=== PATIENT | male | born 1950 | race Asian ===

== ENCOUNTER 2023-11-08 09:25 | Inpatient (IN) | payer MEDICARE, OTHER, SELFPAY ==
[2023-11-08 09:38] VITALS: BP 112/61; BMI 25.8
--- NOTE | 2023-11-08 09:55 | PTCARENOTE ---
Addendum entered by Deisi Wheeler RN 11/08/23 10:08:
97% on RA
Original Note:
Received the patient form [facility] in a stretcher. The patient is aaox3. He is orthopneic and appears to be in respiratory distress however he tells me he is not. His RR is 26 and he has scattered crackles throughout his lungs. His belly is
round and distended with a Tegaderm over a 4x4 gauze dressing that is c/d/i over his right abdomen. His Left arm and hand has +3 edema throughout. I elevated it with 2 pillows. He is AV paced on the monitor. He has no complaints of pain. He has
broken Swedish but understands and answers my questions appropriately. The language line is at his bedside. His call meyer is within reach.
[2023-11-08 11:14] VITALS: BMI 25.8
--- NOTE | 2023-11-08 11:19 | CM ---
Reviewed chart. Met with Mr. Henriquez and his son, Ramesh to review discharge plans. Son states prior to admission Mr. Henriquez resides with his spouse and son in a two story home with five steps to enter. He states he has a full flight of steps to
get to bedroom/full bathroom. He states the second bathroom is in the basement. Son states prior to admission he was amble to ambulate independent slowly with frequent rests. He states he was able to go up the stairs. He states he was
independent with ADLS. He states he has had [facility] in the past. He states he has never been to a SNF/Rehab. He states he thinks he has a prescription plan. Will need to see his current functional level to see if he will have
any skilled care needs. Medical work-up in progress. The discharge plan is SNF/Rehab. versus home with family and [facility] when medically stable.
--- NOTE | 2023-11-08 11:23 | HPS.HSE ---
Addendum entered and electronically signed by Julia Denis MD 11/08/23 11:47:
diastolic CHF hx
Original Note:
Family Physician
-
Family Physician: Estefany Jaquez
Chief Complaint
-
Left upper arm swelling--transferred from [facility] for pacemaker lead extraction
History of Present Illness
Patient is a 72-year-old male with a complex medical history which includes pacemaker placement back in roughly 2016 for sick sinus syndrome, paroxysmal atrial flutter started on Eliquis but developed subdural hematoma in 2018 and was taken off
Eliquis, subsequently had nonhemorrhagic CVA in 2019 and restarted on Eliquis as a bridge to Watchman procedure done here. He also has a history of non-Hodgkin's lymphoma and Waldenstr�m's macroglobulinemia with thrombocytopenia and splenectomy,
cirrhosis (presumed from right sided failure as there is no alcohol history here), essential hypertension, insulin requiring diabetes, congestive heart failure unknown type, gout, hyperlipidemia, iron deficiency anemia with history of GI bleeding,
benign prostatic hyperplasia who presented to [facility] 2 weeks ago with complaints of left leg and left arm swelling.
Workup at that hospital (see records for details) showed CAT scan of the chest, abdomen, pelvis without any signs of recurrent or progressive lymphoma, increased abdominal ascites requiring paracentesis for 1.7 L and eventual decision was that there
may be a stricture from the pacemaker wires which prompted transfer here for lead extraction. They were unable to use contrast for a CT venogram due to his worsening renal dysfunction.
History has been obtained through reading the records and by the family at the bedside. They state that his speech is off and slurred for 2 to 3 days now along with 2 to 3 days of lethargy. Previous to that patient lives with his son and and
is able to walk, has clear speech, and does all of his activities of daily living without assistance.
Patient has been transferred here for further workup in that regard.
Medical History
Past Medical History
Past Medical History: Reports Other
Additional Past Medical History:
Pacemaker placement for sick sinus syndrome
Subdural hematoma 2018
Nonhemorrhagic CVA 2019
History of non-Hodgkin's lymphoma and Waldenstr�m's macroglobulinemia status postchemotherapy in 2017 and splenectomy in 2018 for thrombocytopenia
Cirrhosis presumed to be right-sided heart failure in nature
Essential hypertension
Type 2 diabetes mellitus insulin requiring
Gout
Hyperlipidemia
Benign prostatic hyperplasia
Iron deficiency anemia with history of GI bleeding
Congestive heart failure unknown type
Hypothyroidism
Past Surgical History: Reports Other
Additional Past Surgical History:
Pacemaker placement
Watchman procedure
Splenectomy
Social History
Tobacco: Former Smoker (Quit over 35 years ago)
Alcohol: None
Drug: None
Living: With Family
Family History
Family History: Not pertinent
Allergies / Home Medications
Allergies reflects when Allergies were last updated in [employer].
Home Medications with original date entered in [employer]
Allergy/Medication List:
Allergies
Allergy/AdvReac Type Severity Reaction Status Date / Time
No Known Allergies Allergy Verified 07/02/19 07:08
Home Medications
atorvastatin 10 mg tablet 20 mg PO HS 07/02/19
cholecalciferol (vitamin D3) 50 mcg (2,000 unit) tablet 2,000 unit PO DAILY 07/02/19
finasteride 5 mg tablet 5 mg PO DAILY 07/02/19
metoprolol tartrate 25 mg tablet 12.5 mg PO BID 07/02/19
tamsulosin 0.4 mg capsule 0.4 mg PO HS 07/02/19
aspirin 81 mg chewable tablet 81 mg PO DAILY 07/03/19
allopurinol 300 mg tablet 300 mg PO DAILY 08/28/19
amiodarone 200 mg tablet (Pacerone) 200 mg PO DAILY 08/28/19
budesonide-formoterol HFA 80 mcg-4.5 mcg/actuation aerosol inhaler 2 puff inhalation BID 11/08/23
empagliflozin 25 mg tablet 25 mg PO DAILY 11/08/23
furosemide 20 mg tablet 20 mg PO DAILY 11/08/23
levothyroxine 50 mcg tablet 50 mcg PO DAILY 11/08/23
Review of Systems
-
History Source: Patient and Family
A 12 point ROS was completed and negative except as noted: Yes
Constitutional: Denies Fever or Chills
EENT: Reports No Symptoms and Other (swollen left face--resolved)
Respiratory: Denies Cough or Trouble Breathing
Cardiac: Denies Chest Pain or Palpitations
Abdomen/GI: Reports Nausea and Vomiting; Denies Abdominal Pain, Diarrhea or Constipated
: Reports Dysuria (occasional)
Musculoskeletal: Reports Edema
Skin: Reports No Symptoms
Neurological: Reports Dizzy (with ambulation), Weakness and Other (tremors of left arm/leg with slurred speech and lethargy 2-3 days ago)
Endocrine: Reports No Symptoms
Hematologic/Lymphatic: Reports Other (lymphoma)
Physical Exam
Vital Signs
Vital Signs
Temp Pulse Resp BP Pulse Ox
97.3 F 65 26 112/61 97
11/08/23 09:38 11/08/23 09:38 11/08/23 09:38 11/08/23 09:38 11/08/23 09:38
Physical Exam
General: Well Developed, Well Nourished and No Apparent Distress
HEENT: NormoCephalic, Anicteric and Atraumatic; No Oxygen
Respiratory: Wheezes (all lung gtz)
Cardiac: Irregular Rhythm and Murmur
GI: Soft, Non Tender, Normal Bowel Sounds and Distended
Musculoskeletal: No Clubbing, No Cyanosis and Other (left upper arm remains edematous but right arm and bilateral legs no edema)
Skin: Warm and Dry
Neuro: Awake, No Motor Deficits and Other (speech seems slurred)
Psych: Calm
Impression/Plan
-
Patient is a 72-year-old male
Left upper arm swelling--reason for transfer with concern for stricture/SVC syndrome from pacemaker leads (placed for sick sinus syndrome back in 2016)--unable to get CT venogram at [facility]--consult cardiology, vascular, nephrology--if cannot
get CT venogram, perhaps MRI if pacer compatible we will be acceptable--will defer to vascular and nephrology
Slurred speech/lethargy--2 to 3 days in duration and abnormal as per family and patient--no workup done that I can see at [facility]--consult neurology--consult PT/OT/speech--patient does have history of both subdural hematoma and nonhemorrhagic
CVA--consider head CT versus MRIs as mentioned above
History of non-Hodgkin's lymphoma with Waldenstr�m's macroglobulinemia status postsplenectomy for thrombocytopenia--completed course of chemotherapy--workup at [facility] shows no progression of lymphoma
Type 2 diabetes mellitus insulin requiring--Place sliding scale insulin, check hemoglobin K4t--sfhrrjck insulin as able
Cirrhosis--presumed due to right sided heart failure--status post 1.7 L paracentesis at [facility]--appears to be reaccumulating--consider IR for further drainage--consider ultrasound to evaluate for amount of ascites
Essential hypertension--continue medications with parameters
History of congestive heart failure unknown type--we will review holding edema records again--May need repeat ultrasound here
History of gout--noted--continue allopurinol
History of BPH--continue tamsulosin
History of iron deficiency anemia with GI bleeding--had been receiving IV iron at [facility]--consideration for GI evaluation
Hyperlipidemia--continue atorvastatin
Questionable history of chronic obstructive pulmonary disease/asthma--family states he has been in his 'inhaler' since his pneumonia in 2019--but they deny any history of lung problems
Paroxysmal atrial flutter--status post Watchman procedure
Previous history of subdural hematoma and non hemorrhagic CVA--continue PT/OT/speech--continue baby aspirin daily
DVT prophylaxis--sequential teds
CODE STATUS--full code--reviewed with family at bedside
Time for admission greater than 75 minutes
--- NOTE | 2023-11-08 11:25 | CON.CAR ---
Addendum entered and electronically signed by Garry Elizabeth MD 11/08/23 15:55:
I saw and examined the patient.
The Dining Car Waiter/Waitress's note was reviewed and I agree with the note.
Comment:
GEN: No distress, awake, alert
HEENT: supple, anicteric, mmm
LUNGS: CTA, no wheezes/rales
CV: Reg, S1/S2, 1/6 syst LSB, no murmur
ABD: soft, BS+, NT/ND
EXT: L arm edema
NEURO: Gross non-focal
SKIN: No rash
Plan:
He presents today for an evaluation regarding possible left sided venous occlusion requiring possible pacemaker extraction. I reviewed all of his records and this is a complicated patient. He was hospitalized at [facility] for 1 week with no
clear etiology for his edema. CT scan of the chest was overall unremarkable at [facility]. There was no clear DVT by venous ultrasound. He was diuresed with a paracentesis and did have clinical improvement but his creatinine increased and now
his diuretics are being held.
Creatinine currently at 2.8 with a hemoglobin of 7.9. Continue to follow labs closely. LFTs are also significantly abnormal with bilirubin of 2.3 and transaminases in the 300 range.
Will discuss with nephrology would prefer gentle diuresis and repeat imaging of his venous system. We will start with ultrasound to reevaluate for DVT. We will attempt to review the CT scan performed at [facility].
Agree with head CT to evaluate mental status.
With abnormal liver function testing would hold atorvastatin for now. Okay to continue amiodarone and follow trend of LFTs.
Addendum entered and electronically signed by Jelani Daily MD 11/08/23 15:04:
Attempted to see patient but he is off the floor for CT head imaging and LUE ultrasound imaging. By report his anasarca/facial swelling has improved despite ongoing edema in his left arm. By report he has L SCV occlusion although we do need a
definitive image of his venous system to diagnose SVC syndrome or significant SVC/RA junction stenosis from his 2017 pacing leads. His device was interrogated and noted elevated atrial threshold which was adjusted and now AP-VS with underlying sinus
bradycardia in the 30's. He has a creatinine of 2.8. He is due for a CT of the head due to speech difficulty/change in mental status for about 3 days.
-Appreciate Neurology input.
-If he has no new hemorrhagic lesions then would have to consider short term eliquis 2.5mg bid to treat venous occlusion. He did tolerate about 2 months of NOAC sophy-Watchman implant in 2019.
-Can utilize compression sleeve for left arm in addition to potential NOAC therapy for his LUE edema
-Appreciate IM/Nephrology input re approach to diuresis
-Discussed case preliminarily with Dr. Campuzano. We will follow daily and plan diagnostic testing to make diagnosis either with peripheral venogram under fluoroscopic examination or CT chest with venous phase imaging/contrast. If he has SVC syndrome
will need to consider device extraction although if occlusion is more peripheral in the left subclavian/innominate system then conservative measures would be preferred. Overall he has a myriad of serious/advanced medical issues and any intervention
would be high risk.
Original Note:
Consultation
Consultation Request
Date/Time Consultation Performed: 11/08/23
Requesting Provider: Dr. Denis
Performing Provider: Mireille Joiner PA-C for Dr. Elizabeth
Reason for Consultation: transfer for lead extraction eval
Medical History
-
Chief Complaint: LUE swelling
History of Present Illness:
Patient is a 72-year-old male followed by Dr. Barone at [facility] with past medical history of lymphoma in 2017 status post chemotherapy followed by splenectomy in 2018, sick sinus syndrome status post [employer] pacemaker, paroxysmal atrial
flutter, history of spontaneous subdural hematoma on Eliquis in 2018, history of stroke in 2019, status post watchman 2019, chronic amiodarone therapy, iron deficiency anemia, chronic diastolic congestive heart failure, history of orthostatic
hypotension, type 2 diabetes, CKD. Family reports over the last 2 to 3 months they noted worsening abdominal bloating. Approximately 2 weeks ago swelling became worse everywhere including in his face and feet. At that point his Lasix was
increased by his scientific database curator from 20 mg every other day to 20 mg daily. Family does not note any improvement with this change. He then presented to [facility] 10/28/2023 due to shortness of breath. He was treated for heart failure
with IV Lasix. He also underwent paracentesis for 1.7 L on 11/02/2023. Nephrotoxic agents including diuretics then held because of renal insufficiency. With diuresis the swelling in his face abdomen and leg improved, however edema remains in his
left upper extremity. Echocardiogram with preserved EF, mild to moderate MR, moderate to severe TR at [facility]. CT scan without obvious vena caval obstruction however there was concern for venous stricture/stenosis by vascular at [facility].
Oncology felt no overt evidence for progressive lymphoma, however he did have abnormal kappa light chains, and he is not on current treatment. He underwent left upper extremity ultrasound which was without evidence of DVT. They contemplated CT
venography to assess for central stenosis versus thrombosis however due to his acute on chronic kidney disease this was not completed. He is now transferred to [facility] for evaluation for device extraction due to concern for possible
venous stricture. There was also concern for pacemaker infection due to elevated white blood cell count and bandemia and blood cultures are pending. By last device interrogation at Dr. Barone's office, appears device was functioning appropriately.
At [facility] family was told that he has cirrhosis, he did not carry this diagnosis before to their knowledge. Over last several days family reports changes in speech and more lethargic.
PMH:
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
Waldenstr�m's macroglobulinemia with thrombocytopenia
History of splenectomy in 2018
Sick sinus syndrome status post [employer] pacemaker
Paroxysmal atrial flutter
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
History of stroke in 2019
Status post watchman 06/2019
Chronic amiodarone therapy
Iron deficiency anemia
Chronic diastolic congestive heart failure
History of orthostatic hypotension
HTN
HLD
Type 2 diabetes
CKD
Gout
BPH
Hypothyroidism
Past Medical History
Past Medical History: Other (in HPI)
Social History
Tobacco: Former Smoker
Alcohol: Occasional
Employment: Retired
Allergies / Home Medications
Allergy/AdvReac Type Severity Reaction Status Date / Time
No Known Allergies Allergy Verified 07/02/19 07:08
�Medication �Instructions �Recorded �Confirmed �Type
atorvastatin 10 mg tablet 20 mg PO HS 07/02/19 11/08/23 History
cholecalciferol (vitamin D3) 50 2,000 unit PO DAILY 07/02/19 11/08/23 History
mcg (2,000 unit) tablet
finasteride 5 mg tablet 5 mg PO DAILY 07/02/19 11/08/23 History
metoprolol tartrate 25 mg tablet 12.5 mg PO BID 07/02/19 11/08/23 History
tamsulosin 0.4 mg capsule 0.4 mg PO HS 07/02/19 11/08/23 History
aspirin 81 mg chewable tablet 81 mg PO DAILY 07/03/19 11/08/23 Rx
allopurinol 300 mg tablet 300 mg PO DAILY 08/28/19 11/08/23 History
amiodarone 200 mg tablet (Pacerone) 200 mg PO DAILY 08/28/19 11/08/23 History
budesonide-formoterol HFA 80 2 puff inhalation BID 11/08/23 11/08/23 History
mcg-4.5 mcg/actuation aerosol
inhaler
empagliflozin 25 mg tablet 25 mg PO DAILY 11/08/23 11/08/23 History
furosemide 20 mg tablet 20 mg PO DAILY 11/08/23 11/08/23 History
levothyroxine 50 mcg tablet 50 mcg PO DAILY 11/08/23 11/08/23 History
Review of Systems
-
History Source: Patient and Family
All other systems: Negative unless noted
Physical Exam
Vital Signs
Temp Pulse Resp BP Pulse Ox
97.3 F 65 26 112/61 97
11/08/23 09:38 11/08/23 09:38 11/08/23 09:38 11/08/23 09:38 11/08/23 09:38
Physical Exam
General: No Apparent Distress and Other (lethargic)
HEENT: Normocephalic, Anicteric and Moist Mucous Membranes
Respiratory: Wheezes (with dry cough)
Cardiac: S1/S2 and Irregular Rhythm
GI: Soft, Non Tender, Normal Bowel Sounds and Distended (mild )
Musculoskeletal: No Clubbing, No Cyanosis and Edema (3+ of LUE)
Skin: Warm and Dry
Neuro: Awake and Oriented (to self, place)
Impression / Plan
-
Primary Typewriter Tester: Dr. Barone
PCP: Dr. Estefany Jaquez
Assessment:
Presentation to [facility] for SOB, L sided edema 10/28/23
Acute on chronic HFpEF
CARLYN on CKD
Cirrhosis, new diagnosis per family
s/p paracentesis for 1.7 L on 11/02/23
altered mental status/lethargy
Leukocytosis with bandemia - Concern at [facility] for infected PPM
Concern for venous stricture/stenosis
Transfer from [facility] to for eval for PPM extraction 11/08/23
Elevated LFTs
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
Waldenstr�m's macroglobulinemia with thrombocytopenia
History of splenectomy in 2018
Sick sinus syndrome status post [employer] pacemaker
Paroxysmal atrial flutter
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
History of stroke in 2019
Status post watchman 06/2019
Chronic amiodarone therapy
Iron deficiency anemia
Chronic diastolic congestive heart failure
History of orthostatic hypotension
HTN
HLD
Type 2 diabetes
CKD
Gout
BPH
Hypothyroidism
ECHO 10/28/23: EF 55 to 60%, mildly dilated bilateral atria, mild AR, mild to moderate MR, moderate to severe TR
Plan:
-Patient presented to [facility] with worsening L sided swelling and SOB. He was diuresed with improvement aside from LUE swelling.
-there is concern for venous stricture/stenosis from PPM wires and therefore patient was transferred to today for assessment for PPM lead extraction
-records from [facility] admission and primary scientific database curator's office reviewed in detail. complex case
-swelling was not felt to be secondary to his history of lymphoma as had CT C/A/P without evidence of progression/recurrence
-LUE US at [facility] without evidence for DVT. CARLYN on CKD has limited ability to complete CT with contrast. will repeat LUE US here. nephrology eval for optimization. holding nephrotoxic agents
-device interrogation, unclear if patient is PPM dependent and need to determine if pacer with appropriate function
-check blood cultures
-echo with results as above
-check proBNP
-family reports lethargy and altered speech over the last several days. on review of records no evidence of recent head CT. neuro eval, consider head CT. check ammonia level which was noted to be elevated at [facility]
-would request neuro also weigh in on patient's ability to take OAC - history of SDH in 2018 as OAC may be indicated pending results of imaging
-discussed with family would not consider for extraction until clear etiology identified and patient optimized from medical standpoint. they are in agreement with plan
-d/w patient and family at bedside
-d/w nursing
-d/w hospitalist
Data Reviewed
-
EKG: Tracing Personally Visualized and interpreted
Radiology: Report Reviewed by me
CT Scan: Report Reviewed by me
Ultrasound: Report Reviewed by me
Medical Tests (Nuc Med, Echo etc): Report Reviewed by me
Labs: Labs Reviewed by me
Old Records: Requested and Reviewed
[2023-11-08 12:32] LABS: Hematocrit 22.1 % (39.0-52.0); Hemoglobin 7.9 g/dL (13.0-18.0); Mean Corp Hgb Conc. 35.7 g/dL (33.0-37.0); Mean Corpuscular Hgb 32.1 pg (27.0-31.0); Mean Corpuscular Volume 89.8 fL (80.0-94.0); Mean Platelet Volume 11.3 fL (7.4-10.4); Platelet Count 161 10^3/uL (130-400); Red Blood Cell Count 2.46 10^6/uL (4.70-6.10); White Blood Cell Count 10.8 10^3/uL (4.8-10.8)
[2023-11-08 12:40] LABS: Glucose - Point of Care 142 mg/dl (70-99)
[2023-11-08 12:46] LABS: Ammonia 35 umol/L (9-30)
[2023-11-08 12:54] LABS: ALT (SGPT) 91 U/L (0-50); AST (SGOT) 304 U/L (17-59); Albumin 3.9 g/dl (3.5-5.0); Alkaline Phosphatase 175 U/L (38-126); Blood Urea Nitrogen 56 mg/dl (9-20); Calcium 9.3 mg/dl (8.4-10.2); Carbon Dioxide 24 mmol/L (22-30); Chloride 102 mmol/L (98-107); Estimated Creatinine Clearance 20 ml/min; Glucose 127 mg/dl (70-99); Magnesium 2.7 mg/dl (1.6-2.3); Potassium 4.4 mmol/L (3.5-5.1); Sodium 135 mmol/L (135-145); Total Bilirubin 2.3 mg/dl (0.2-1.3); Total Protein 7.7 g/dl (6.3-8.2)
[2023-11-08 12:56] LABS: NT-proBNP 4010 pg/ml
[2023-11-08] MEDS: NOVOLOG FLEXPEN-LOW RESISTANCE SC ×2 (13:09→18:05)
--- NOTE | 2023-11-08 13:37 | W.CON.NEPH ---
Consultation
-
Date/Time Consultation Requested: 11/08/2023 10:00 AM
Date/Time Consultation Performed: 11/08/2023 1:30 PM
Requesting Provider: Dr. Denis
Performing Provider: Dr. Najera
Reason for Consultation: Acute kidney injury/CKD 4
Medical History
-
Chief Complaint: Acute kidney injury/CKD
History of Present Illness:
The patient is a 72-year-old male with a past medical history of chronic kidney disease with an apparent baseline creatinine of around 2. The patient is a 72-year-old male with a complex medical history which includes pacemaker placement back in
roughly 2016 for sick sinus syndrome, paroxysmal atrial flutter started on Eliquis but developed subdural hematoma in 2018 and was taken off Eliquis, subsequently had nonhemorrhagic CVA in 2019 and restarted on Eliquis as a bridge to Watchman
procedure done here. 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
hypertension, insulin requiring diabetes, congestive heart failure unknown type, gout, hyperlipidemia, iron deficiency anemia with history of GI bleeding, benign prostatic hyperplasia who presented to [facility] 2 weeks ago with
complaints of left leg and left arm swelling.
Workup at that hospital (see records for details) showed CAT scan of the chest, abdomen, pelvis without any signs of recurrent or progressive lymphoma, increased abdominal ascites requiring paracentesis for 1.7 L and eventual decision was that there
may be a stricture from the pacemaker wires which prompted transfer here for lead extraction. They were unable to use contrast for a CT venogram due to his worsening renal dysfunction.
Family states that his speech is off and slurred for 2 to 3 days now along with 2 to 3 days of lethargy. Previous to that patient lives with his son and and is able to walk, has clear speech, and does all of his activities of daily living
without assistance. Nephrology was consulted for an elevated creatinine level of 2.8
Past Medical History
Pacemaker placement for sick sinus syndrome
CKD stage IIIb ~2
Subdural hematoma 2018
Nonhemorrhagic CVA 2019
History of non-Hodgkin's lymphoma and Waldenstr�m's macroglobulinemia status postchemotherapy in 2017 and splenectomy in 2018 for thrombocytopenia
Cirrhosis presumed to be right-sided heart failure in nature
Essential hypertension
Type 2 diabetes mellitus insulin requiring
Gout
Hyperlipidemia
Benign prostatic hyperplasia
Iron deficiency anemia with history of GI bleeding
Congestive heart failure unknown type
Hypothyroidism
AFIB
Moderate mitral regurgitation/Severe TR
Pacer
Past Surgical History: Reports Other
Additional Past Surgical History:
Pacemaker placement
Watchman procedure
Splenectomy
Social History
Tobacco: Former Smoker
Alcohol: None
Drug: None
Family History
no CKD
Allergies / Home Medications
Allergy/AdvReac Type Severity Reaction Status Date / Time
No Known Allergies Allergy Verified 07/02/19 07:08
�Medication �Instructions �Recorded �Confirmed �Type
atorvastatin 10 mg tablet 20 mg PO HS 07/02/19 11/08/23 History
cholecalciferol (vitamin D3) 50 2,000 unit PO DAILY 07/02/19 11/08/23 History
mcg (2,000 unit) tablet
finasteride 5 mg tablet 5 mg PO DAILY 07/02/19 11/08/23 History
metoprolol tartrate 25 mg tablet 12.5 mg PO BID 07/02/19 11/08/23 History
tamsulosin 0.4 mg capsule 0.4 mg PO HS 07/02/19 11/08/23 History
aspirin 81 mg chewable tablet 81 mg PO DAILY 07/03/19 11/08/23 Rx
allopurinol 300 mg tablet 300 mg PO DAILY 08/28/19 11/08/23 History
amiodarone 200 mg tablet (Pacerone) 200 mg PO DAILY 08/28/19 11/08/23 History
budesonide-formoterol HFA 80 2 puff inhalation BID 11/08/23 11/08/23 History
mcg-4.5 mcg/actuation aerosol
inhaler
empagliflozin 25 mg tablet 25 mg PO DAILY 11/08/23 11/08/23 History
furosemide 20 mg tablet 20 mg PO DAILY 11/08/23 11/08/23 History
levothyroxine 50 mcg tablet 50 mcg PO DAILY 11/08/23 11/08/23 History
Review of Systems
-
History Source: Patient
All other systems: Negative unless noted
Respiratory: Trouble Breathing
Cardiac: No Symptoms
Abdomen/GI: Nausea and Vomiting
: Dysuria (occasional)
Hematologic/Lymphatic: Other (Left upper extremity edema)
Physical Exam
Vital Signs
Vital Signs
Temp Pulse Resp BP Pulse Ox
97.3 F 65 26 112/61 97
11/08/23 09:38 11/08/23 09:38 11/08/23 09:38 11/08/23 09:38 11/08/23 09:50
Lab Results
11/08/23 12:17
11/08/23 12:17
WBC 10.8 10^3/uL (4.8-10.8) 11/08/23 12:17
RBC 2.46 10^6/uL (4.70-6.10) L 11/08/23 12:17
Hgb 7.9 g/dL (13.0-18.0) L 11/08/23 12:17
Hct 22.1 % (39.0-52.0) L 11/08/23 12:17
Plt Count 161 10^3/uL (130-400) 11/08/23 12:17
Sodium 135 mmol/L (135-145) 11/08/23 12:17
Potassium 4.4 mmol/L (3.5-5.1) 11/08/23 12:17
Chloride 102 mmol/L (98-107) 11/08/23 12:17
Carbon Dioxide 24 mmol/L (22-30) 11/08/23 12:17
BUN 56 mg/dl (9-20) H 11/08/23 12:17
Creatinine 2.8 mg/dL (0.7-1.3) H 11/08/23 12:17
eGFR 23.10 11/08/23 12:17
Glucose 127 mg/dl (70-99) H 11/08/23 12:17
Calcium 9.3 mg/dl (8.4-10.2) 11/08/23 12:17
Oym-N-Rzcbkisnbkt Pept 4010 pg/ml 11/08/23 12:17
Albumin 3.9 g/dl (3.5-5.0) 11/08/23 12:17
Physical Exam
General: AOx3, Nontoxic , NAD
HEENT: PERRL, EOMI, Anicteric, Conjunctivae Clear, Ear/Nose Intact, Hearing Normal, Oropharynx Clear/Moist, Dentition Intact, Facial Symmetry, Neck Supple, Neck: Trachea Midline, No JVD and No Thyromegaly, no Bruits
Respiratory: Clear to auscultation bilaterally with normal lung excursion
Cardiac: S1/S2 irregular irregular
Breast: Deferred by me
Abdomen: Soft, Nontender, Nondistended, Normal Bowel Sounds and No Hepatosplenomegaly
Rectal: Deferred by Provider
Genito-urinary: No Costovertebral Tenderness
Extremities: No Clubbing, No Cyanosis and pitting left upper extremity edema
Skin: No Rash or open lesions
Neuro: Nonfocal/Grossly Intact, CN II-XII (Intact) and Strength (Musculoskeletal exam 5 out of 5 both upper and lower extremities)
Hematologic/Lymphatic: No Cervical Lymphadenopathy, No Submandibular Lymphadenopathy and No Supraclavicular Lymphadenopathy
Psych: Mood/afflect pleasant, Insight/judgement good and Appropriate
Vascular: plus 2 pedal and radial pulses
Data Reviewed
-
Labs: Labs Reviewed by me (BMP)
Old Records: Requested (Reviewed [facility] lab work 10/28/2023 creatinine 2.76) and Reviewed (To be obtained and reviewed from [facility] and then reviewed, creatinine 1.3 as per review of EMR from 07/03/2019)
Assessment/Plan
-
Impression:
Acute kidney injury
CKD stage IIIb
Presentation to [facility] for SOB, Left upper arm and left sided edema 10/28/23
Acute on chronic HFpEF
Cirrhosis, new diagnosis per family
s/p paracentesis for 1.7 L on 11/02/23
Altered mental status/lethargy
Leukocytosis with bandemia - Concern at [facility] for infected PPM
Concern for venous stricture/stenosis
Transfer from [facility] to for evaluation for PPM extraction 11/08/23
Elevated LFTs
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
Waldenstr�m's macroglobulinemia with thrombocytopenia
History of splenectomy in 2018
Sick sinus syndrome status post [employer] pacemaker
Paroxysmal atrial flutter
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
History of stroke in 2019
Status post watchman 06/2019
Chronic amiodarone therapy
Iron deficiency anemia
Chronic diastolic congestive heart failure
History of orthostatic hypotension
HTN
HLD
Type 2 diabetes
CKD
Gout
BPH
Hypothyroidism
Plan:
CARLYN/CKD 3b
-Obtain urine studies, UA
-Obtain kidney and bladder ultrasound
-Obtain postvoid bladder scan
-I would hold Jardiance in setting of acute kidney injury
-Creatinine on admission to [facility] was 2.76, I am unsure if kidney function is actually even off from baseline
--- NOTE | 2023-11-08 13:38 | W.PN.UPDATE ---
Update Note
Progress Note Update
spoke with Dr. Elder Gillespie, he has spoken to Dr. Daily---he will call vascular when needed--will cancel the consult for now
--- NOTE | 2023-11-08 14:14 | CON.NEURO4 ---
Consultation - Neurology 4
-
CONSULTING PHYSICIAN: Nito Weldon
REFERRING PHYSICIAN: Hospitalist
DICTATED BY: Nito Weldon
DATE/TIME OF REQUEST: 11/08/23
DATE/TIME OF CONSULTATION: 11/08/23
Reason for Consultation: Slurred speech more recent, history of SDH and risks/benefits of anticoagulation
History of Present Illness:
The patient is a 72-year-old male with a past no history of CKD, paroxysmal atrial flutter, sick sinus syndrome status post pacemaker, history of subdural hematoma, history of Watchman device implant, diabetes mellitus who presents to hospital as a
transfer given concern for potential need for pacemaker removal.
Symptoms first seem to started with edema in the abdomen, but then had worsening edema in the feet as well as face, was admitted to [facility] on 10/27 and underwent diuresis for treatment of suspected heart failure and also had paracentesis on
11/01. He developed acute kidney injury. Edema began to be noticed on the left arm and there was concern for possible venous obstruction or stricture with involvement by current permanent pacemaker.
Patient and his family relate that speech has been slurred for around 3 to 4 days with some moderate confusion and drowsiness. Family relates that the subdural hematoma happened around 2018 and this was spontaneous without any history of head
trauma, initially he was taken off of the anticoagulation in the form of Eliquis but then had a minor ischemic stroke with subsequent placement of Watchman device.
Lab work here shows creatinine of 2.8, AST/ALT 304/91 and elevated ammonia at 35.
Past Medical History: Paroxysmal atrial flutter, sick sinus syndrome s/p pacemaker, history of subdural hematoma 2018, N lymphoma, Waldenstrom's macroglobulinemia, hypertension, hyperlipidemia, type 2 diabetes, CKD, gout, BPH, hypothyroidism
Surgical History: Watchmen device implant 2019, splenectomy, permanent pacemaker
Family History: Non-contributory
Social History: Retired, quit tobacco, alcohol use 1-2 times a week, no recreational drugs
Allergies: No known drug allergies
Review of Symptoms:
Patient denies any fever, headache, chest pain, shortness of breath, GI or symptoms.
Physical Exam:
Middle-aged man in no acute distress no signs of head or neck trauma, eating lunch, eyes are clear oropharynx is clear, edema of the left side the neck and significant edema on the left arm.
Heart rate regular, no murmur appreciated, breathing is unlabored no wheezing. Abdomen is mildly distended soft and nontender. No lower extremity edema rash or joint deformity.
Neurologic Examination:
Mental status shows a mildly drowsy patient who is awake and conversational, obeys one-step and complicated multistep commands with no evidence of neglect.
Cranial nerve examination shows moderate dysarthria, symmetric face, resting gaze is midline extraocular's are full, visual gtz intact confrontation bilaterally, pupils 3 mm equal reactive to light bilaterally
Motor examination shows some limitation of strength testing of the left shoulder abduction due to significant left arm edema but shows good 5/5 arm flexion strength bilaterally and 5/5 hip flexion and knee extension bilaterally
Sensory examination intact to light touch and noxious stimulation
Reflexes are absent throughout
No ataxia and finger-nose testing on the right arm limited due to edema on the left
Gait examination for assistance and short steps with no ataxia
Neuro Imaging: CT head non contrast small chronic right putamen/basal ganglia lacunar infarct versus virchow moshe space, no acute hemorrhage, no masses
Impressions
1. Slurred speech and mild confusion are most likely due to metabolic abnormalities in the form of liver injury and hyperammonemia, possibly a mild CARLYN, and history of subdural hematoma and previous ischemic stroke which would predispose the
patient to either development of confusion/delirium. No focal signs on neurologic examination that arouse strong suspicion for a new ischemic stroke.
2. CT head with no hemorrhage or large infarct, chronic lacunar infarct on right putamen/basal ganglia area
3. History of spontaneous subdural hematoma around 2018
4. History of minor ischemic stroke without residual deficit
5. History of Watchman device now off chronic anticoagulation
6. Significant left arm edema and facial swelling suspicious for occlusion or insufficiency in the proximal veins, left subclavian or superior vena cava.
7. Possible CARLYN on top of CKD
8. New liver function test abnormalities with mild hyperammonemia
Recommendations:
1. Patient is acceptable risk for anticoagulation with apixaban 2.5 mg twice daily. History of subdural hematoma 6 years ago although spontaneous active hemorrhage on the brain currently would not be a contraindication to anticoagulation given the
concern for and risks of venous stenosis/occlusion or SVC syndrome.
2. From my standpoint if starting anticoagulation would not need aspirin in addition to anticoagulation
3. Check carotid ultrasound
4. Planned for further studies for venous imaging
5. Minimize sedating medications as able to prevent delirium
6. Follow renal and liver function
Will follow
Discussed patient care with: Patient and his family, cardiology and hospitalist
--- NOTE | 2023-11-08 14:42 | W.CARD.DEVCH ---
Cardiac Device Check
-
Device: Pacemaker
Knitted Cloth Examiner: [employer]
The patient's device was interrogated with assistance of the device bottling equipment sales representative. His impedances and sensing are within normal limits. His atrial threshold was high and was not capturing a lead appropriately. Rep adjusted atrial pulse width
with improvement in capture. The atrial noncapture was causing increased V paced percentages, but he is now a paced, V sensed. Atrial blanking was also extended as he was far field oversensing. No malignant arrhythmias noted. Device is MRI
conditional. His sinus rate is in the 30s with AV conduction intact.
--- NOTE | 2023-11-08 15:03 | PTCARENOTE ---
[facility] called in a critical 'band' result of 22 from this morning's lab draw (when the patient was at [facility]). I notified Dr. Densi with the critical result.
[2023-11-08 16:04] VITALS: BP 106/62
[2023-11-08 18:05] LABS: Glucose - Point of Care 150 mg/dl (70-99)
[2023-11-08 18:55] VITALS: BP 117/64
[2023-11-08] MEDS: SYMBICORT 80/4.5 MCG INHALER 2 PUFF INH (19:30)
[2023-11-08 19:33] LABS: Free T4 2.41 ng/dl (0.78-2.19)
[2023-11-08] MEDS: ELIQUIS 2.5 MG PO (19:43)
[2023-11-08] MEDS: LOPRESSOR 12.5 MG PO (19:43)
[2023-11-08] MEDS: DUPHALAC/CHRONULAC 20 GRAMS PO (19:43)
[2023-11-08 20:05] LABS: Urine Albumin Trace (Neg - Trace); Urine Bilirubin Negative (Negative); Urine Character Slightly Cloudy (Clear); Urine Color Yellow; Urine Glucose 3+ (Negative); Urine Ketone Negative (Negative); Urine Leukocyte Negative (Negative); Urine Nitrite Negative (Negative); Urine Occult Blood 2+ (Negative); Urine Urobilinogen Negative (Neg - 1+)
[2023-11-08 20:17] LABS: Urine Red Blood Cell 0-2 /HPF (0-2)
[2023-11-08 20:18] LABS: Urine Bacteria Moderate (Negative)
[2023-11-08 20:24] LABS: Urine Sodium 20 mmol/L (30-90)
[2023-11-08 21:57] LABS: Glucose - Point of Care 185 mg/dl (70-99)
[2023-11-08] MEDS: FLOMAX 0.400000000000000022 MG PO (22:13)
[2023-11-08 22:19] VITALS: BP 99/51
[2023-11-09] VITALS (9 sets, daily range): BP systolic 96–122; BP diastolic 53–68; PULSE 60; O2SAT 97; BMI 24.3
[2023-11-09] MEDS: DUONEB 3 ML INH ×3 (00:57→19:30)
[2023-11-09 04:39] LABS: Hemoglobin 7.6 g/dL (13.0-18.0); Mean Corp Hgb Conc. 36.2 g/dL (33.0-37.0); Mean Corpuscular Hgb 32.1 pg (27.0-31.0); Mean Corpuscular Volume 88.6 fL (80.0-94.0); Mean Platelet Volume 11.3 fL (7.4-10.4); Platelet Count 157 10^3/uL (130-400); Red Blood Cell Count 2.37 10^6/uL (4.70-6.10)
[2023-11-09 04:48] LABS: Ammonia 58 umol/L (9-30)
[2023-11-09 05:06] LABS: ALT (SGPT) 114 U/L (0-50); AST (SGOT) 369 U/L (17-59); Albumin 3.5 g/dl (3.5-5.0); Alkaline Phosphatase 178 U/L (38-126); Blood Urea Nitrogen 58 mg/dl (9-20); Calcium 9.1 mg/dl (8.4-10.2); Carbon Dioxide 24 mmol/L (22-30); Chloride 103 mmol/L (98-107); Estimated Creatinine Clearance 22 ml/min; Glucose 131 mg/dl (70-99); Magnesium 2.8 mg/dl (1.6-2.3); Potassium 4.4 mmol/L (3.5-5.1); Sodium 135 mmol/L (135-145); Total Bilirubin 2.2 mg/dl (0.2-1.3); Total Protein 7.2 g/dl (6.3-8.2); eGFR 25.25
--- NOTE | 2023-11-09 07:43 | W.PN.NEURO.1 ---
Today's Communication / Plan
-
-Started on Apixaban and aspirin has been stopped
-Check carotid ultrasound
-Follow kidney and liver function
-Minimize sedating medications as able
Neuro Assessment/Plan
Assessment
1. Slurred speech and mild confusion are most likely due to metabolic abnormalities in the form of liver injury and hyperammonemia, possibly a mild CARLYN, and history of subdural hematoma and previous ischemic stroke which would predispose the
patient to either development of confusion/delirium. No focal signs on neurologic examination that arouse strong suspicion for a new ischemic stroke.
2. CT head with no hemorrhage or large infarct, chronic lacunar infarct on right putamen/basal ganglia area
3. History of spontaneous subdural hematoma around 2018
4. History of minor ischemic stroke without residual deficit
5. History of Watchman device now off chronic anticoagulation
6. Significant left arm edema and facial swelling suspicious for occlusion or insufficiency in the proximal veins, left subclavian or superior vena cava.
7. Possible CARLYN on top of CKD
8. New liver function test abnormalities with mild hyperammonemia
Subjective/Objective
Subjective Data
Date of Service: November 09, 2023
No acute events, had venous ultrasound performed, patient with no new complaints, still with left arm edema, denies headache
Objective Data
Vital Signs
Temp Pulse Resp BP Pulse Ox
97.8 F 60 22 96/66 94
11/09/23 03:56 11/09/23 04:00 11/09/23 03:56 11/09/23 03:56 11/09/23 03:56
Lab Results
11/09/23 04:07
11/09/23 04:07
Sodium 135 mmol/L (135-145) 11/09/23 04:07
Potassium 4.4 mmol/L (3.5-5.1) 11/09/23 04:07
BUN 58 mg/dl (9-20) H 11/09/23 04:07
Glucose 131 mg/dl (70-99) H 11/09/23 04:07
Calcium 9.1 mg/dl (8.4-10.2) 11/09/23 04:07
Ted-C-Pstsfyusoxn Pept 4010 pg/ml 11/08/23 12:17
Patient Allergies
No Known Allergies Allergy (Verified 07/02/19 07:08)
Review of Systems
-
History Source: Patient
All other systems: Reviewed and negative
Constitutional: No Symptoms
EENT: No Symptoms Reported
Respiratory: No Symptoms
Cardiac: No Symptoms
Abdomen/GI: No Symptoms
Genitourinary: No Symptoms
Musculoskeletal: Edema
Skin: No Symptoms
Neuro: Speech Problem
Endocrine: No Symptoms
Hematologic / Lymphatic: No Symptoms
Allergy / Immunology: No Symptoms
Physical Exam
-
General: Appears Chronically Ill
Eyes: No Ptosis
HEENT: Normocephalic
Neck: No Bruits Bilaterally
Respiratory: Clear to Auscultation
Cardiac: Regular Rhythm
GI: Normal Bowel Sounds
Skin: Unremarkable
Extremities: Other (Significant edema of left arm, shoulder, neck, no lower extremity edema)
Extended Neurological Exam
Attention Span & Concentration: Awake, Alert, Interactive and Other (Obeys commands consistently, some inattention, difficulty with multi step commands)
Memory: Able to Recall
Tremor: Hand Tremor Absent
Involuntary Movement: None
Speech: Dysarthric; Negative Expressive Aphasia or Receptive Aphasia
Cranial Nerve II: Left Eye: Pupillary Reactivity Unremarkable, Pupillary Size Unremarkable and Visual Riley Intact
Cranial Nerve II: Right Eye: Pupillary Reactivity Unremarkable, Pupillary Size Unremarkable and Visual Riley Intact
Cranial Nerves III, IV, : Extraocular Movement: Extraocular Movement Full in all Directions
Cranial Nerve VII: Facial Symmetry: Normal Facial Symmetry
Muscle Strength, Overall: Other (5/5 right arm abduction arm flexion, left arm 5/5 arm flexion, shoulder abduction limited due to edema shows 3/5 efforts, legs 5/5 hip flexion ankle dorsiflexion and plantaflexion)
Deep Tendon Reflexes: Absent Throughout
Vibration Sensation: Unremarkable
Touch Sensation: Pin Prick Unremarkable
Coordination: [id number] Testing Unremarkable
Babinski Sign: Absent Bilaterally
Data Reviewed
-
CT Head: Report Reviewed and Image Reviewed
Carotid Ultrasound: Ordered and Pending
[2023-11-09 07:52] LABS: Glucose - Point of Care 147 mg/dl (70-99)
[2023-11-09] MEDS: NOVOLOG FLEXPEN-LOW RESISTANCE SC (08:11)
[2023-11-09] MEDS: SYMBICORT 80/4.5 MCG INHALER 2 PUFF INH ×2 (08:16→19:30)
[2023-11-09] MEDS: DUPHALAC/CHRONULAC 20 GRAMS PO ×2 (08:34→19:47)
[2023-11-09] MEDS: LOPRESSOR 12.5 MG PO ×2 (08:34→19:47)
[2023-11-09] MEDS: ZYLOPRIM 300 MG PO (08:34)
[2023-11-09] MEDS: ELIQUIS 2.5 MG PO ×2 (08:34→19:47)
[2023-11-09] MEDS: SYNTHROID 50 MCG PO (08:34)
[2023-11-09] MEDS: LASIX 20 MG PO (08:34)
[2023-11-09] MEDS: PACERONE 200 MG PO (08:34)
[2023-11-09] MEDS: PROSCAR 5 MG PO (08:34)
[2023-11-09] MEDS: JARDIANCE 25 MG PO (08:34)
[2023-11-09] MEDS: VITAMIN D3 (cholecalciferol) 50 MCG PO (08:34)
[2023-11-09 09:23] LABS: Glycohemoglobin (HgbA1c) 6.7 % (4.0-5.6)
--- NOTE | 2023-11-09 09:50 | PTOTSP ---
Speech Language Pathology
Seen with breakfast tray of regular solids, thin liquids, and mixed consistencies. Pt edentulous. Dentures present in room, but pt declined placing these. Adequate mastication, bolus formation, and A-P transit noted. No oral residue. No overt
signs of aspiration. Pt with increased WOB and wheezing at rest and during P.O. intake with no significant worsening noted. WBC WNL and chest imaging not completed.
Recommend:
(1) Continue regular solids/thin liquids
(2) General aspiration precautions
(3) Meds as tolerated
(4) PROGRAMMING DEVELOPMENT PROJECT MANAGER to follow, likely briefly
--- NOTE | 2023-11-09 09:55 | PTCARENOTE ---
pt speaks little Maori language line used to communicate. pt oriented x3. speech slurred due to old cva. states no pain. is lynch. room air. breath sounds course base crackles ex wheezing. neb tx given as ordered. pt vomited mod amt of juice
this morning. pt uses walker to ambulate to chair and bathroom with min assist. left arm +3 pitting edema. pulses present. abd round firm.
--- NOTE | 2023-11-09 10:21 | W.PN.CARDCBS ---
Addendum entered and electronically signed by Sol Yin DO 11/09/23 12:16:
I saw and examined the patient.
The Boom Worker's note was reviewed and I agree with the note.
Comment: Patient seen and examined with cardiac PA. Spoke with family over the phone at bedside. Patient sitting out of bed to chair reporting some nausea earlier this morning which is since resolved otherwise without complaints.
GEN: No distress, awake, alert. sitting in chair
HEENT: mmm
LUNGS: Wheezes with cough
CV: Reg, S1/S2, no murmur
ABD: soft, BS+, NT/ND
EXT: +3 edema left upper extremity. No left upper extremity hematoma. Device site appears intact. No neck edema. No lower extremity edema.
Plan:
New left arm swelling transferred for evaluation of SVC syndrome from pacemaker that was placed back in 2015 for sick sinus syndrome
-No venous thrombus in left upper extremity. Normal flow demonstrated in the left basilic, brachial, cephalic, axillary, subclavian and internal jugular veins
-Carotid duplex done this morning still pending
-Timing of venogram to be determined through discussions with nephrology minimizing risk for contrast nephropathy
-Further care plan pending venogram regarding need for vascular involvement and or plan for device extraction
-Empiric Eliquis [renal dosed 2.5 mg twice daily] for presumed venous occlusion started 11/08/2023.
-No fevers or elevated WBC. Blood cultures pending. Observe off antibiotics
Sick sinus syndrome status post pacemaker 2015
-Device was interrogated with assistance of the device dental sales representative for 2023: His impedances and sensing are within normal limits. His atrial threshold was high and was not capturing a lead appropriately. Rep adjusted atrial pulse width with
improvement in capture. The atrial noncapture was causing increased V paced percentages, but he is now a paced, V sensed. Atrial blanking was also extended as he was far field oversensing. No malignant arrhythmias noted. Device is MRI
conditional. His sinus rate is in the 30s with AV conduction intact.
Acute on chronic renal insufficiency�appreciate nephrology involvement.
Acute on chronic anemia.
-Hemoglobin 7.6 g/dL without active bleeding.
-Monitor closely with starting Eliquis
-Consider transfusion, defer to medicine
PAF in sinus rhythm status post watchman in 2019
-Monitor hemoglobin closely on Eliquis [Waldenstr�m's macroglobulinemia with thrombocytopenia. History of splenectomy in 2018. History of subdural hematoma and not hemorrhagic CVA 2018]
-Appreciate neurology input and clearance to start Eliquis 2.5 mg twice daily [CT head with no hemorrhage or large infarct. Chronically chronic infarct on right putamen/basal ganglia area]
-Continue metoprolol tartrate 12.5 mg twice daily
-Continue amiodarone 200 mg once daily however will need to reassess in the light of elevated LFTs and abnormal TFTs [patient also has a history of cirrhosis and is on levothyroxine as an outpatient]
Hypothyroidism on levothyroxine with elevated TSH/free T4
-Would adjust levothyroxine, defer to medicine
Acute on chronic heart failure preserved ejection fraction
-proBNP 4010. with wheezing and cough.
-will order CXR
-Lasix and Jardiance held per nephrology with anticipated venogram
Original Note:
Today's Communication / Plan
-
follow hgb on eliquis 2.5mg BID
heme test. iron studies added to AM labs
vascular consult
CXR
blood culture pending
Impression / Plan
-
Primary Shovel Mechanic: Dr. Barone
PCP: Dr. Estefany Jaquez
Assessment:
Presentation to [facility] for SOB, L sided edema 10/28/23
Acute on chronic HFpEF
CARLYN on CKD
Cirrhosis, new diagnosis per family
s/p paracentesis for 1.7 L on 11/02/23
altered mental status/lethargy
Leukocytosis with bandemia - Concern at [facility] for infected PPM
Concern for venous stricture/stenosis
Transfer from [facility] to for eval for PPM extraction 11/08/23
Elevated LFTs
Abnormal TFTs
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
Waldenstr�m's macroglobulinemia with thrombocytopenia
History of splenectomy in 2018
Sick sinus syndrome status post [employer] pacemaker
Paroxysmal atrial flutter
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
History of stroke in 2019
Status post watchman 06/2019
Chronic amiodarone therapy
Iron deficiency anemia
Chronic diastolic congestive heart failure
History of orthostatic hypotension
HTN
HLD
Type 2 diabetes
CKD
Gout
BPH
Hypothyroidism
ECHO 10/28/23: EF 55 to 60%, mildly dilated bilateral atria, mild AR, mild to moderate MR, moderate to severe TR
Plan:
-complex case
-Patient presented to [facility] with worsening L sided swelling and SOB. He was diuresed with improvement aside from LUE swelling.
-there is concern for venous stricture/stenosis from PPM wires and therefore patient was transferred to 11/07 for assessment for PPM lead extraction
-swelling was not felt to be secondary to his history of lymphoma as had CT C/A/P at [facility] without evidence of progression/recurrence
-LUE US at [facility] without evidence for DVT. CARLYN on CKD has limited ability to complete CT with contrast. repeat LUE US negative for evidence of DVT.
-nephrology following. holding nephrotoxic agents
-appears brighter today, less lethargic. head CT with old lacunar infarct however no acute findings noted
-he was started on eliquis 2.5mg BID 11/07 after discussion with neurology. follow hgb, low on arrival but downtrending, 7.6 on 11/08. heme test. check iron studies with history of DAXA.
-LUE compression ordered
-vascular evaluation
-blood culture pending
-echo with results as above
-proBNP 4010. with wheezing and cough. will order CXR
-LFTs trending up slightly and TFTs abnormal. currently on amiodarone 200mg daily. adjustment of OP levothyroxine per primary service
-discussed with family would not consider for extraction until clear etiology identified and patient optimized from medical standpoint. they are in agreement with plan. extraction team made aware of patient 11/07.
-d/w family via telephone
Progress Note - Shovel Mechanic
Subjective
Date of Service: November 09, 2023
appears brighter today. reports some nausea
Objective
Labs:
11/09/23 04:07
11/09/23 04:07
Labs
Hgb 7.6 g/dL (13.0-18.0) L 11/09/23 04:07
Hct 21.0 % (39.0-52.0) L 11/09/23 04:07
Plt Count 157 10^3/uL (130-400) 11/09/23 04:07
Sodium 135 mmol/L (135-145) 11/09/23 04:07
Potassium 4.4 mmol/L (3.5-5.1) 11/09/23 04:07
BUN 58 mg/dl (9-20) H 11/09/23 04:07
Creatinine 2.6 mg/dL (0.7-1.3) H 11/09/23 04:07
Glucose 131 mg/dl (70-99) H 11/09/23 04:07
Vital Signs and I&O:
Vital Signs
Temp Pulse Resp BP Pulse Ox
98.5 F 60 20 119/64 96
11/09/23 07:47 11/09/23 09:00 11/09/23 08:19 11/09/23 08:34 11/09/23 08:19
Vital Signs
Temp Pulse Resp BP Pulse Ox
98.5 F 60 20 119/64 96
11/09/23 07:47 11/09/23 09:00 11/09/23 08:19 11/09/23 08:34 11/09/23 08:19
Intake & Output
11/07/23 11/08/23 11/09/23 11/10/23
07:59 07:59 07:59 07:59
Output Total 225 / 225
Balance -225 / -225
Physical Exam
Physical Exam
GEN: No distress, awake, alert. sitting in chair
HEENT: supple, anicteric, mmm, eomi
LUNGS: Wheezes with cough
CV: Reg, S1/S2, no murmur
ABD: soft, BS+, NT/ND
EXT: No cyanosis, clubbing, edema
NEURO: Gross non-focal
SKIN: Warm, pink, dry. No rash
--- NOTE | 2023-11-09 10:27 | W.PN.HOSP.TC ---
Today's Communication/Plan
-
still in workup for possible pacer extraction--deferring to cards/renal next steps
Assessment / Plan
Assessment / Plan
Patient is a 72-year-old male
Left upper arm swelling--reason for transfer with concern for stricture/SVC syndrome from pacemaker leads (placed for sick sinus syndrome back in 2016)--unable to get CT venogram at [facility]--consult cardiology, vascular, nephrology--US neg for
DVT, arm still swollen--may need CT venogram regardless of kidney function, will need to premedicate to try to preserve renal function
Slurred speech/lethargy--2 to 3 days in duration and abnormal as per family and patient--no workup done that I can see at [facility]--apprec neurology--PT/OT/speech--patient does have history of both subdural hematoma and nonhemorrhagic CVA--head
CT shows old finding, nothing acute--neurology started on Eliquis and stopped asa
History of non-Hodgkin's lymphoma with Waldenstr�m's macroglobulinemia status postsplenectomy for thrombocytopenia--completed course of chemotherapy--workup at [facility] shows no progression of lymphoma
Type 2 diabetes mellitus insulin requiring--Place sliding scale insulin, check hemoglobin L3v--qfonqoju insulin as able
Cirrhosis--presumed due to right sided heart failure--status post 1.7 L paracentesis at [facility]--may need IR for further drainage--consider ultrasound to evaluate for amount of ascites
Essential hypertension--continue medications with parameters
History of congestive heart failure unknown type--we will review holding edema records again--May need repeat ultrasound here
History of gout--noted--continue allopurinol
History of BPH--continue tamsulosin
History of iron deficiency anemia with GI bleeding--had been receiving IV iron at [facility]--HGB 7.6--no active bleeding noted--consider blood transfusion (ángel if pacer extraction likely to happen)
Hyperlipidemia--continue atorvastatin
Questionable history of chronic obstructive pulmonary disease/asthma--family states he has been in his 'inhaler' since his pneumonia in 2019--but they deny any history of lung problems
Paroxysmal atrial flutter--status post Watchman procedure
Previous history of subdural hematoma and non hemorrhagic CVA--continue PT/OT/speech-- baby aspirin stopped by neuro--now on Eliquis
DVT prophylaxis--sequential teds
CODE STATUS--full code--reviewed with family at bedside
Anticipated Discharge: > 48 hours
Subjective/Interval History
-
Date of Service: November 09, 2023
language barrier
Objective Data
-
Labs:
Laboratory Results
11/09/23
04:07
WBC 10.0
Hgb 7.6 L
Hct 21.0 L
Plt Count 157
Sodium 135
Potassium 4.4
Chloride 103
Carbon Dioxide 24
BUN 58 H
Creatinine 2.6 H
Glucose 131 H
Calcium 9.1
Total Bilirubin 2.2 H
AST 369 H
ALT 114 H
Alkaline Phosphatase 178 H
Vital Signs:
max temp for 24 hours
11/09/23
07:47
Temp 98.5 F
Vital Signs
Temp Pulse Resp BP Pulse Ox
98.5 F 60 20 119/64 96
11/09/23 07:47 11/09/23 09:00 11/09/23 08:19 11/09/23 08:34 11/09/23 08:19
I&O
11/08/23 11/09/23 11/10/23
06:59 06:59 06:59
Output Total 225 / 225
Balance -225 / -225
Review of Systems
-
Unable to obtain full review of systems at this time due to: Language Barrier
Physical Exam
-
General: Well Developed, Well Nourished and No Apparent Distress
HEENT: Normocephalic and Atraumatic; Negative Oxygen
Respiratory: Clear to Auscultation; Negative Wheezes, Rales, Rhonchi or Crackles
Cardiac: Regular Rhythm and S1/S2; Negative Murmur
GI: Soft, Nontender, Nondistended and Normal Bowel Sounds
Musculoskeletal: No Clubbing and No Cyanosis; Negative No Edema (4+ edema left arm/hand)
Neuro: Awake and Alert
Psych: Calm
--- NOTE | 2023-11-09 10:35 | W.PN.NEPH.PH ---
Today's Communication / Plan
-
Observe
Assessment/Plan
-
Impression:
Acute kidney injury
CKD stage IIIb
Presentation to [facility] for SOB, Left upper arm and left sided edema 10/28/23
Acute on chronic HFpEF
Cirrhosis, new diagnosis per family
s/p paracentesis for 1.7 L on 11/02/23
Altered mental status/lethargy
Leukocytosis with bandemia - Concern at [facility] for infected PPM
Concern for venous stricture/stenosis
Transfer from [facility] to for evaluation for PPM extraction 11/08/23
Elevated LFTs
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
Waldenstr�m's macroglobulinemia with thrombocytopenia
History of splenectomy in 2018
Sick sinus syndrome status post [employer] pacemaker
Paroxysmal atrial flutter
History of spontaneous subdural hematoma on Eliquis in 2017
History of stroke in 2019
Status post watchman 06/2019
Chronic amiodarone therapy
Iron deficiency anemia
Chronic diastolic congestive heart failure
History of orthostatic hypotension
HTN
HLD
Type 2 diabetes
CKD
Gout
BPH
Hypothyroidism
Plan:
CARLYN/CKD 3b
-Creatinine stable at 2 point
-Obtained urine studies, UA: 2+ blood, trace albumin
-Obtain postvoid bladder scan
-Patient will likely require venogram befor attempted pacer extraction
-I would hold Samanta stephensix in setting of CKD if we pursue venogram this patient will be an increased risk for contrast nephropathy
-Pre and post IV fluids can be provided for contrast prophylaxis
-I do not believe any further workup is necessary for CKD at this point
-Creatinine on admission to [facility] was 2.76, I am unsure if kidney function is actually even off from baseline
-
-
Date of Service: November 09, 2023
CC / HPI / ROS
-
Chief Complaint:
CKD
History of Present Illness:
Creatinine stable at 2.6
Hemodynamically stable
Review of Systems:
Subjectively nonoliguric
No fevers
No chest pain
Labs
-
Labs:
WBC 10.0 10^3/uL (4.8-10.8) 11/09/23 04:07
RBC 2.37 10^6/uL (4.70-6.10) L 11/09/23 04:07
Hgb 7.6 g/dL (13.0-18.0) L 11/09/23 04:07
Hct 21.0 % (39.0-52.0) L 11/09/23 04:07
Plt Count 157 10^3/uL (130-400) 11/09/23 04:07
Sodium 135 mmol/L (135-145) 11/09/23 04:07
Potassium 4.4 mmol/L (3.5-5.1) 11/09/23 04:07
Chloride 103 mmol/L (98-107) 11/09/23 04:07
Carbon Dioxide 24 mmol/L (22-30) 11/09/23 04:07
BUN 58 mg/dl (9-20) H 11/09/23 04:07
Creatinine 2.6 mg/dL (0.7-1.3) H 11/09/23 04:07
eGFR 25.25 11/09/23 04:07
Glucose 131 mg/dl (70-99) H 11/09/23 04:07
Calcium 9.1 mg/dl (8.4-10.2) 11/09/23 04:07
Gjn-A-Utsbydxjepw Pept 4010 pg/ml 11/08/23 12:17
Albumin 3.5 g/dl (3.5-5.0) 11/09/23 04:07
Physical Exam
-
Vital Signs:
Vital Signs
Temp Pulse Resp BP Pulse Ox
98.5 F 60 20 119/64 96
11/09/23 07:47 11/09/23 09:00 11/09/23 08:19 11/09/23 08:34 11/09/23 08:19
Cardiovascular:: Regular rate and rhythm
Respiratory:: Bilateral: Coarse
Lung Excursion:: Normal
Abdomen:: Nontender and Soft
Bowel Sounds:: Normal
Extremity Edema:: +1: Left: (Upper extremity)
Rocha Catheter: No
[2023-11-09 10:46] LABS: Hepatitis C Antibody Negative (Negative)
[2023-11-09 11:18] LABS: Iron 46 ug/dl (49-181)
[2023-11-09 11:27] LABS: Percent Saturation 15 % (20-50); Total Iron Binding Capacity 294 ug/dl (261-462)
[2023-11-09 13:24] LABS: Glucose - Point of Care 221 mg/dl (70-99)
[2023-11-09] MEDS: NOVOLOG FLEXPEN-LOW RESISTANCE 2 UNITS SC (13:59)
--- NOTE | 2023-11-09 14:36 | CM ---
Addendum entered by Saray Clifton 11/10/23 10:23:
[facility] did not accept referral - short staffed. referral faxed to [facility].
Original Note:
Reviewed chart. Telephone call to [facility] to see if they can accept the referral. Sent referral to [facility] The nursing supervisor aluminum fabrication has to review and see if they can accept the referral. Awaiting to hear back from
[facility] regarding accepting referral.
[2023-11-09 17:21] LABS: Glucose - Point of Care 152 mg/dl (70-99)
[2023-11-09] MEDS: NOVOLOG FLEXPEN-LOW RESISTANCE 1 UNITS SC (17:28)
--- NOTE | 2023-11-09 21:17 | PTCARENOTE ---
Pt received at start of shift, HR 100% A-paced. Assisted pt with eating dinner. Pt has very poor appetite. Reinforced fall risk status with pt. R abdominal dressing CDI. Pt denies any CP, worsening SOB, or lightheadedness/dizziness at this time.
Informed to notify RN if any changes, call meyer within reach.
[2023-11-09 21:30] LABS: Glucose - Point of Care 205 mg/dl (70-99)
[2023-11-09] MEDS: FLOMAX 0.400000000000000022 MG PO (22:36)
[2023-11-10] VITALS (8 sets, daily range): BP systolic 97–120; BP diastolic 57–86; BMI 23.9
[2023-11-10] MEDS: SYNTHROID 50 MCG PO (03:28)
[2023-11-10 03:51] LABS: Hematocrit 22.2 % (39.0-52.0); Hemoglobin 7.9 g/dL (13.0-18.0); Mean Corp Hgb Conc. 35.6 g/dL (33.0-37.0); Mean Corpuscular Hgb 32.4 pg (27.0-31.0); Mean Platelet Volume 10.8 fL (7.4-10.4); Platelet Count 152 10^3/uL (130-400); Red Blood Cell Count 2.44 10^6/uL (4.70-6.10); Red Cell Dist. Width 20.8 % (11.5-14.5); White Blood Cell Count 9.8 10^3/uL (4.8-10.8)
[2023-11-10 04:17] LABS: Ammonia 42 umol/L (9-30)
[2023-11-10 04:19] LABS: ALT (SGPT) 104 U/L (0-50); AST (SGOT) 328 U/L (17-59); Albumin 3.4 g/dl (3.5-5.0); Alkaline Phosphatase 175 U/L (38-126); Blood Urea Nitrogen 56 mg/dl (9-20); Calcium 9.2 mg/dl (8.4-10.2); Carbon Dioxide 25 mmol/L (22-30); Chloride 105 mmol/L (98-107); Estimated Creatinine Clearance 22 ml/min; Glucose 136 mg/dl (70-99); Magnesium 2.8 mg/dl (1.6-2.3); Potassium 4.2 mmol/L (3.5-5.1); Sodium 135 mmol/L (135-145); Total Bilirubin 2.1 mg/dl (0.2-1.3); Total Protein 7.2 g/dl (6.3-8.2); eGFR 25.25
[2023-11-10] MEDS: SYMBICORT 80/4.5 MCG INHALER 2 PUFF INH ×2 (07:54→18:03)
[2023-11-10] MEDS: DUONEB 3 ML INH (07:57)
[2023-11-10 08:38] LABS: Glucose - Point of Care 145 mg/dl (70-99)
[2023-11-10] MEDS: NOVOLOG FLEXPEN-LOW RESISTANCE SC ×2 (08:45→11:44)
[2023-11-10] MEDS: DUPHALAC/CHRONULAC 20 GRAMS PO ×3 (08:58→22:25)
[2023-11-10] MEDS: ZYLOPRIM 300 MG PO (08:58)
[2023-11-10] MEDS: LOPRESSOR 12.5 MG PO ×2 (08:58→21:04)
[2023-11-10] MEDS: LASIX 20 MG PO (08:58)
[2023-11-10] MEDS: PACERONE 200 MG PO (08:59)
[2023-11-10] MEDS: ELIQUIS 2.5 MG PO ×2 (08:59→21:04)
[2023-11-10] MEDS: VITAMIN D3 (cholecalciferol) 50 MCG PO (08:59)
[2023-11-10] MEDS: PROSCAR 5 MG PO (08:59)
--- NOTE | 2023-11-10 09:24 | W.PN.CARDCBS ---
Addendum entered and electronically signed by Artemio Villeda MD 11/10/23 14:54:
I saw and examined the patient.
The OPERATIONS MANAGEMENT TRAINEE or PA's note was reviewed and I agree with the note.
Comment: General: Well developed, well nourished in NAD.
Neck: Supple, no JVD, HJR, carotids +2 B/L, no bruits bilaterally.
Heart: Non displaced PMI, RRR, no murmurs, No S3, S4, no rubs.
Lungs: Scattered rhonchi
Extremities: No clubbing, cyanosis or edema bilaterally.
Neuro: Grossly nonfocal, awake, alert and oriented x3.
For eventual CT venogram of left upper extremity when okay from renal standpoint. Could consider eventual lead extraction of the possibly thrombus might improve with anticoagulation. Discussed with patient and also patient's son by phone.
Original Note:
Today's Communication / Plan
-
medical optimization
CT venogram when ok from kidney standpoint
continue eliquis. follow hgb
LUE compression
Impression / Plan
-
Primary Environmental Services Director: Dr. Barone
PCP: Dr. Estefany Jaquez
Assessment:
Presentation to [facility] for SOB, L sided edema 10/28/23
Acute on chronic HFpEF
CARLYN on CKD
Cirrhosis, new diagnosis per family
s/p paracentesis for 1.7 L on 11/02/23
altered mental status/lethargy
Leukocytosis with bandemia - Concern at [facility] for infected PPM
Concern for venous stricture/stenosis
Transfer from [facility] to for eval for PPM extraction 11/08/23
Elevated LFTs
Abnormal TFTs
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
Waldenstr�m's macroglobulinemia with thrombocytopenia
History of splenectomy in 2018
Sick sinus syndrome status post [employer] pacemaker
Paroxysmal atrial flutter
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
History of stroke in 2019
Status post watchman 06/2019
Chronic amiodarone therapy
Iron deficiency anemia
Chronic diastolic congestive heart failure
History of orthostatic hypotension
HTN
HLD
Type 2 diabetes
CKD
Gout
BPH
Hypothyroidism
ECHO 10/28/23: EF 55 to 60%, mildly dilated bilateral atria, mild AR, mild to moderate MR, moderate to severe TR
Plan:
-complex case
-Patient presented to [facility] with worsening L sided swelling and SOB. He was diuresed with improvement aside from LUE swelling.
-there is concern for venous stricture/stenosis from PPM wires and therefore patient was transferred to 11/07 for assessment for PPM lead extraction
-swelling was not felt to be secondary to his history of lymphoma as had CT C/A/P at [facility] without evidence of progression/recurrence
-LUE US at [facility] without evidence for DVT. CARLYN on CKD has limited ability to complete CT with contrast. repeat LUE US negative for evidence of DVT.
-nephrology following. holding nephrotoxic agents. Cr stable at 2.6. proBNP 4010. CXR with mild pulm edema.
-ideally needs CT venogram when optimized per nephrology
-he was started on eliquis 2.5mg BID 11/07 after discussion with neurology. follow hgb, low on arrival but downtrending, 7.9 on 11/09. heme test. defer need for iron to primary service
-LUE compression ordered
-LUE looks slightly improved today
-blood culture negative thus far
-echo with results as above
-device interrogated this admission - His atrial threshold was high and was not capturing a lead appropriately. Rep adjusted atrial pulse width with improvement in capture. The atrial noncapture was causing increased V paced percentages, but he is
now a paced, V sensed. Atrial blanking was also extended as he was far field oversensing. No malignant arrhythmias noted. Device is MRI conditional. His sinus rate is in the 30s with AV conduction intact. currently a paced on review of tele
-TFTs abnormal. currently on amiodarone 200mg daily. adjustment of OP levothyroxine per primary service.
-LFTs trending down from 11/08
-as previously discussed with family, would not consider for extraction until clear etiology identified and patient optimized from medical standpoint. they are in agreement with plan. extraction team made aware of patient 11/07.
Progress Note - Environmental Services Director
Subjective
Date of Service: November 10, 2023
denies CP, reports some improvement in LUE
Objective
Labs:
11/10/23 03:37
11/10/23 03:37
Labs
Hgb 7.9 g/dL (13.0-18.0) L 11/10/23 03:37
Hct 22.2 % (39.0-52.0) L 11/10/23 03:37
Plt Count 152 10^3/uL (130-400) 11/10/23 03:37
Sodium 135 mmol/L (135-145) 11/10/23 03:37
Potassium 4.2 mmol/L (3.5-5.1) 11/10/23 03:37
BUN 56 mg/dl (9-20) H 11/10/23 03:37
Creatinine 2.6 mg/dL (0.7-1.3) H 11/10/23 03:37
Glucose 136 mg/dl (70-99) H 11/10/23 03:37
Vital Signs and I&O:
Vital Signs
Temp Pulse Resp BP Pulse Ox
98.4 F 60 18 115/65 96
11/10/23 07:12 11/10/23 08:00 11/10/23 07:58 11/10/23 07:14 11/10/23 07:12
Vital Signs
Temp Pulse Resp BP Pulse Ox
98.4 F 60 18 115/65 96
11/10/23 07:12 11/10/23 08:00 11/10/23 07:58 11/10/23 07:14 11/10/23 07:12
Intake & Output
11/08/23 11/09/23 11/10/23 11/11/23
07:59 07:59 07:59 07:59
Intake Total 240 / 240
Output Total 225 / 225
Balance -225 / -225 240 / 240
Physical Exam
Physical Exam
GEN: No distress, awake, alert.
HEENT: supple, anicteric, mmm, eomi
LUNGS: Wheezes B/L
CV: Reg, S1/S2, no murmur
ABD: soft, BS+, NT/ND
EXT: No cyanosis, clubbing. LUE edema, slightly improved compared to 11/08 exam
NEURO: Gross non-focal
SKIN: Warm, pink, dry. No rash
--- NOTE | 2023-11-10 09:34 | PTCARENOTE ---
assumed care of pt from previous shift RN, Apaced on tele, + peripheral pulses, no edema to lower extremities, left arm +2 edema- RUTH wrap placed as ordered. Lungs course throughout, +HERNANDEZ. +hypoactive bs, abd soft/ slightly distended, poor
appetite, voids spontaneously. Skin is dry, intact. PIV flushes easily. Plan of care reviewed w the pt and questions encouraged.
--- NOTE | 2023-11-10 10:19 | W.PN.HOSP.TC ---
Today's Communication/Plan
-
added low dose steroids
will recheck CXR and US to eval for ascites
CT venogram at discretion of cards/renal
Assessment / Plan
Assessment / Plan
Patient is a 72-year-old male
Left upper arm swelling--reason for transfer with concern for stricture/SVC syndrome from pacemaker leads--apprec cardiology, vascular, nephrology--US neg for DVT, arm still swollen--will need CT venogram regardless of kidney function, will need to
premedicate to try to preserve renal function--timing to be between cards/renal
Slurred speech/lethargy--2 to 3 days in duration and abnormal as per family and patient--no workup at [facility]--apprec neurology--PT/OT/speech--patient does have history of both subdural hematoma and nonhemorrhagic CVA--head CT shows old
finding, nothing acute--neurology started on Eliquis and stopped asa
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
Type 2 diabetes mellitus insulin requiring--Place sliding scale insulin, check hemoglobin A3o--iayhbosn insulin as able--watch with starting steroids
Cirrhosis--presumed due to right sided heart failure--status post 1.7 L paracentesis at [facility]--may need IR for further drainage--will ultrasound to evaluate for amount of ascites
Essential hypertension--continue medications with parameters
History of diastolic congestive heart failure with mild exacerbation--as per cards
History of gout--noted--cont allopurinol
History of BPH--continue tamsulosin
History of iron deficiency anemia with GI bleeding--had been receiving IV iron at [facility]--HGB 7.9--no active bleeding noted--consider blood transfusion (ángel if pacer extraction likely to happen)
Hyperlipidemia--continue atorvastatin
Questionable history of chronic obstructive pulmonary disease/asthma--family states he has been in his 'inhaler' since his pneumonia in 2019--but they deny any history of lung problems--wheezing--possible COPD exacerbation--starting low dose
decadron--follow--CXR from 11/08 with mild CHF
Paroxysmal atrial flutter--status post Watchman procedure
Previous history of subdural hematoma and non hemorrhagic CVA--continue PT/OT/speech-- baby aspirin stopped by neuro--now on Eliquis
DVT prophylaxis--sequential teds
CODE STATUS--full code--reviewed with family at bedside
Anticipated Discharge: > 48 hours
Subjective/Interval History
-
Date of Service: November 10, 2023
pt sleeping--audible wheezing heard
Objective Data
-
Labs:
Laboratory Results
11/10/23
03:37
WBC 9.8
Hgb 7.9 L
Hct 22.2 L
Plt Count 152
Sodium 135
Potassium 4.2
Chloride 105
Carbon Dioxide 25
BUN 56 H
Creatinine 2.6 H
Glucose 136 H
Calcium 9.2
Total Bilirubin 2.1 H
AST 328 H
ALT 104 H
Alkaline Phosphatase 175 H
Vital Signs:
max temp for 24 hours
11/09/23
16:02
Temp 99.3 F
Vital Signs
Temp Pulse Resp BP Pulse Ox
98.4 F 60 18 115/65 96
11/10/23 07:12 11/10/23 08:00 11/10/23 07:58 11/10/23 07:14 11/10/23 09:30
I&O
11/09/23 11/10/23 11/11/23
06:59 06:59 06:59
Intake Total 240 / 240 50 / 50
Output Total 225 / 225
Balance -225 / -225 240 / 240 50 / 50
Review of Systems
-
Unable to obtain full review of systems at this time due to: Language Barrier
Physical Exam
-
General: Well Developed, Well Nourished and No Apparent Distress
HEENT: Normocephalic and Atraumatic; Negative Oxygen
Respiratory: Wheezes
Cardiac: Regular Rhythm and S1/S2; Negative Murmur
GI: Soft, Nontender, Normal Bowel Sounds and Distended
Musculoskeletal: No Clubbing and No Cyanosis; Negative No Edema (edema left upper extremity)
Skin: Warm and Dry
Neuro: Awake
Psych: Calm
--- NOTE | 2023-11-10 11:32 | W.PN.NEPH.PH ---
Today's Communication / Plan
-
CT venogram
Assessment/Plan
-
Impression:
Acute kidney injury
CKD stage IIIb
Presentation to [facility] for SOB, Left upper arm and left sided edema 10/28/23
Acute on chronic HFpEF
Cirrhosis, new diagnosis per family
s/p paracentesis for 1.7 L on 11/02/23
Altered mental status/lethargy
Leukocytosis with bandemia - Concern at [facility] for infected PPM
Concern for venous stricture/stenosis
Transfer from [facility] to for evaluation for PPM extraction 11/08/23
Elevated LFTs
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
Waldenstr�m's macroglobulinemia with thrombocytopenia
History of splenectomy in 2018
Sick sinus syndrome status post [employer] pacemaker
Paroxysmal atrial flutter
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
History of stroke in 2019
Status post watchman 06/2019
Chronic amiodarone therapy
Iron deficiency anemia
Chronic diastolic congestive heart failure
History of orthostatic hypotension
HTN
HLD
Type 2 diabetes
CKD
Gout
BPH
Hypothyroidism
Plan:
-follow PVR
-hold lasix today
-bicarb IV with venogram
-d/w family (Sylvia) on phone regarding CN risks. They agree to proceed
-follow BMP
-
-
Date of Service: November 10, 2023
CC / HPI / ROS
-
Chief Complaint:
CKD
History of Present Illness:
Creatinine stable at 2.6
Hemodynamically stable
on no supplemental O2
Review of Systems:
Subjectively nonoliguric
No fevers
No chest pain
Labs
-
Labs:
WBC 9.8 10^3/uL (4.8-10.8) 11/10/23 03:37
RBC 2.44 10^6/uL (4.70-6.10) L 11/10/23 03:37
Hgb 7.9 g/dL (13.0-18.0) L 11/10/23 03:37
Hct 22.2 % (39.0-52.0) L 11/10/23 03:37
Plt Count 152 10^3/uL (130-400) 11/10/23 03:37
Sodium 135 mmol/L (135-145) 11/10/23 03:37
Potassium 4.2 mmol/L (3.5-5.1) 11/10/23 03:37
Chloride 105 mmol/L (98-107) 11/10/23 03:37
Carbon Dioxide 25 mmol/L (22-30) 11/10/23 03:37
BUN 56 mg/dl (9-20) H 11/10/23 03:37
Creatinine 2.6 mg/dL (0.7-1.3) H 11/10/23 03:37
eGFR 25.25 11/10/23 03:37
Glucose 136 mg/dl (70-99) H 11/10/23 03:37
Calcium 9.2 mg/dl (8.4-10.2) 11/10/23 03:37
Pmi-D-Enhlntrntnl Pept 4010 pg/ml 11/08/23 12:17
Albumin 3.4 g/dl (3.5-5.0) L 11/10/23 03:37
Physical Exam
-
Vital Signs:
Vital Signs
Temp Pulse Resp BP Pulse Ox
98.4 F 60 18 115/65 96
11/10/23 07:12 11/10/23 08:00 11/10/23 07:58 11/10/23 07:14 11/10/23 09:30
Cardiovascular:: Regular rate and rhythm
Respiratory:: Bilateral: Rhonchi
Lung Excursion:: Normal
Abdomen:: Nontender and Soft
Bowel Sounds:: Normal
Extremity Edema:: None: Bilateral:
[2023-11-10 11:44] LABS: Glucose - Point of Care 148 mg/dl (70-99)
[2023-11-10] MEDS: DECADRON 2 MG IV ×3 (12:18→23:34)
[2023-11-10] MEDS: SODIUM BICARBONATE 1150 MEQ IV (12:49)
[2023-11-10] MEDS: ROBITUSSIN 200 MG PO (12:49)
--- NOTE | 2023-11-10 12:57 | PTCARENOTE ---
spoke w CT department regarding timing of CT scan. Pt is to receive bicarb prior. Infusion initiated now as indicated by CT.
[2023-11-10 16:44] LABS: Glucose - Point of Care 213 mg/dl (70-99)
[2023-11-10] MEDS: NOVOLOG FLEXPEN-LOW RESISTANCE 2 UNITS SC (16:56)
--- NOTE | 2023-11-10 17:00 | CM ---
dc plans remain home with [facility] when medically stable.
[2023-11-10 21:17] LABS: Glucose - Point of Care 257 mg/dl (70-99)
--- NOTE | 2023-11-10 21:20 | PTCARENOTE ---
Unable to verify any vitals prior to 1914.
[2023-11-10] MEDS: FLOMAX 0.400000000000000022 MG PO (22:25)
[2023-11-11] VITALS (8 sets, daily range): BP systolic 100–128; BP diastolic 57–72; PULSE 67; BMI 24.7
[2023-11-11 04:05] LABS: Hematocrit 22.2 % (39.0-52.0); Mean Corpuscular Hgb 32.1 pg (27.0-31.0); Mean Corpuscular Volume 89.2 fL (80.0-94.0); Mean Platelet Volume 10.8 fL (7.4-10.4); Platelet Count 169 10^3/uL (130-400); Red Blood Cell Count 2.49 10^6/uL (4.70-6.10); Red Cell Dist. Width 20.9 % (11.5-14.5); White Blood Cell Count 7.2 10^3/uL (4.8-10.8)
[2023-11-11 04:08] LABS: Ammonia 81 umol/L (9-30)
[2023-11-11 04:30] LABS: ALT (SGPT) 112 U/L (0-50); AST (SGOT) 303 U/L (17-59); Albumin 3.3 g/dl (3.5-5.0); Alkaline Phosphatase 168 U/L (38-126); Blood Urea Nitrogen 51 mg/dl (9-20); Carbon Dioxide 23 mmol/L (22-30); Chloride 104 mmol/L (98-107); Estimated Creatinine Clearance 26 ml/min; Glucose 179 mg/dl (70-99); Magnesium 2.8 mg/dl (1.6-2.3); Potassium 4.8 mmol/L (3.5-5.1); Sodium 135 mmol/L (135-145); Total Protein 7.2 g/dl (6.3-8.2); eGFR 30.85
[2023-11-11] MEDS: DECADRON 2 MG IV ×3 (05:42→17:36)
[2023-11-11] MEDS: SYNTHROID 75 MCG PO (05:42)
[2023-11-11 06:55] LABS: Glucose - Point of Care 196 mg/dl (70-99)
[2023-11-11] MEDS: SYMBICORT 80/4.5 MCG INHALER 2 PUFF INH ×2 (07:21→18:07)
[2023-11-11] MEDS: DUONEB 3 ML INH (07:22)
--- NOTE | 2023-11-11 08:41 | W.PN.HOSP.TC ---
Today's Communication/Plan
-
consulted IR for paracentesis--studies ordered
further decisions re: pacer removal per cards
Assessment / Plan
Assessment / Plan
Patient is a 72-year-old male
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
subclavian and brachiocephalic veins around the cardiac pacemaker wires--cont eliquis
Slurred speech/lethargy--2 to 3 days in duration and abnormal as per family and patient--no workup at [facility]--apprec neurology--PT/OT/speech--patient does have history of both subdural hematoma and nonhemorrhagic CVA--head CT shows old
finding, nothing acute--neurology started on Eliquis and stopped asa
History of non-Hodgkin's lymphoma with Waldenstr�m's macroglobulinemia status postsplenectomy for thrombocytopenia--completed course of chemotherapy--workup at [facility] shows no progression of lymphoma
Type 2 diabetes mellitus insulin requiring--Place sliding scale insulin, check hemoglobin U7n--eadzctge insulin as able--watch with starting steroids
Cirrhosis--presumed due to right sided heart failure--status post 1.7 L paracentesis at [facility]--may need IR for further drainage--ultrasound showed moderate ascites--consulted IR and ordered fluid studies--will stop checking ammonia as pt
seems awake and alert--cont lactulose
History of iron deficiency anemia with GI bleeding--had been receiving IV iron at [facility]--HGB 8.0--no active bleeding noted--consider blood transfusion (ángel if pacer extraction likely to happen)
Questionable history of chronic obstructive pulmonary disease/asthma--family states he has been in his 'inhaler' since his pneumonia in 2019--but they deny any history of lung problems--wheezing--possible COPD exacerbation--started low dose
decadron--follow--CXR from 4/25 with mild CHF
hypothyroid--TSH 12 but free T4 elevated (not reliable in hospital setting)--synthroid increased to 75mcg from 50 mcg; will need repeat TFTs in 3-4 weeks (~ end of November)
Essential hypertension--continue medications with parameters
History of diastolic congestive heart failure with mild exacerbation--as per cards
History of gout--noted--cont allopurinol
History of BPH--continue tamsulosin
Hyperlipidemia--continue atorvastatin
Paroxysmal atrial flutter--status post Watchman procedure
Previous history of subdural hematoma and non hemorrhagic CVA--continue PT/OT/speech-- baby aspirin stopped by neuro--now on Eliquis
DVT prophylaxis--sequential teds
CODE STATUS--full code--reviewed with family at bedside
Anticipated Discharge: > 48 hours
Subjective/Interval History
-
Date of Service: November 11, 2023
language barrier
Objective Data
-
Labs:
Laboratory Results
11/11/23 11/11/23
03:40 03:41
WBC 7.2
Hgb 8.0 L
Hct 22.2 L
Plt Count 169
Sodium 135
Potassium 4.8
Chloride 104
Carbon Dioxide 23
BUN 51 H
Creatinine 2.2 H
Glucose 179 H
Calcium 9.0
Total Bilirubin 2.0 H
AST 303 H
ALT 112 H
Alkaline Phosphatase 168 H
Vital Signs:
max temp for 24 hours
11/11/23
03:15
Temp 98.6 F
Vital Signs
Temp Pulse Resp BP Pulse Ox
97.4 F 60 20 124/72 99
11/11/23 07:58 11/11/23 07:23 11/11/23 07:58 11/11/23 03:28 11/11/23 07:58
I&O
11/10/23 11/11/23 11/12/23
06:59 06:59 06:59
Intake Total 240 / 240 530 / 530
Output Total 500 / 500
Balance 240 / 240
Review of Systems
-
Unable to obtain full review of systems at this time due to: Language Barrier
Physical Exam
-
General: Well Developed, Well Nourished and No Apparent Distress
HEENT: Normocephalic and Atraumatic
Respiratory: Wheezes; Negative Clear to Auscultation or Rhonchi
Cardiac: Regular Rhythm and S1/S2; Negative Murmur
GI: Soft, Nontender, Normal Bowel Sounds and Distended (ascitic fluid)
Musculoskeletal: No Clubbing, No Cyanosis and No Edema
Neuro: Awake and Alert
Psych: Calm
--- NOTE | 2023-11-11 08:52 | W.PN.CARDCBS ---
Addendum entered and electronically signed by Artemio Villeda MD 11/11/23 10:45:
I saw and examined the patient.
The [employer] or PA's note was reviewed and I agree with the note.
Comment: General: Well developed, well nourished in NAD.
Neck: Supple, no JVD, HJR, carotids +2 B/L, no bruits bilaterally.
Heart: Non displaced PMI, RRR, no murmurs, No S3, S4, no rubs.
Lungs: Scattered wheezes
Abdomen: Normal bowel sounds, soft, non-tender, non-distended.
Extremities: No clubbing, cyanosis or edema bilaterally.
Neuro: Grossly nonfocal, awake, alert and oriented x3.
Spoke with EP. There are no plans for lead extraction as felt to be high risk. Will attempt anticoagulation. Neurology approved starting Eliquis 2.5 mg p.o. twice daily. Will discontinue amiodarone but abnormal liver on CT scan. Discussed with
patient's son by phone. Discussed with primary service
Original Note:
Today's Communication / Plan
-
Hold amio
No plans for extraction at this time.
Impression / Plan
-
Primary [employer] Mixer: Dr. Barone
PCP: Dr. Estefany Jaquez
Assessment:
Presentation to [facility] for SOB, L sided edema 10/28/23
Acute on chronic HFpEF
CARLYN on CKD
Cirrhosis, new diagnosis per family
s/p paracentesis for 1.7 L on 11/02/23
altered mental status/lethargy
Leukocytosis with bandemia - Concern at [facility] for infected PPM
Concern for venous stricture/stenosis
Transfer from [facility] to for eval for PPM extraction 11/08/23
Elevated LFTs
Abnormal TFTs
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
Waldenstr�m's macroglobulinemia with thrombocytopenia
History of splenectomy in 2018
Sick sinus syndrome status post [employer] pacemaker
Paroxysmal atrial flutter
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
History of stroke in 2019
Status post watchman 06/2019
Chronic amiodarone therapy
Iron deficiency anemia
Chronic diastolic congestive heart failure
History of orthostatic hypotension
HTN
HLD
Type 2 diabetes
CKD
Gout
BPH
Hypothyroidism
ECHO 10/28/23: EF 55 to 60%, mildly dilated bilateral atria, mild AR, mild to moderate MR, moderate to severe TR
Plan:
-Patient presented to [facility] with worsening L sided swelling and SOB. He was diuresed with improvement aside from LUE swelling. There is concern for venous stricture/stenosis from PPM wires and therefore patient was transferred to 11/07 for
assessment for PPM lead extraction.
-Swelling was not felt to be secondary to his history of lymphoma as had CT C/A/P at [facility] without evidence of progression/recurrence
-LUE US at [facility] without evidence for DVT. Repeat LUE US at negative for evidence of DVT.
-Nephrology following for CARLYN. Cr stable at 2.2. Nephrotoxic meds remain on hold.
-Creat improved 11/[address] to [address] CT of chest which showed suspected chronic thrombosis of the L subclavian and brachiocephalic veins around the cardiac pacemaker wires. No CT evidence of thrombosis of SVC, R brachiocephalic vein, R
subclavian vein, or internal jugular veins.
-CT findings discussed with Dr. Campuzano. No plans for extraction at this time.
-he was started on Eliquis 2.5mg BID 11/07 after discussion with neurology. follow hgb, low on arrival but downtrending, 7.9 on 11/09. heme test. defer need for iron to primary service
-blood culture negative thus far
-device interrogated this admission - His atrial threshold was high and was not capturing a lead appropriately. Rep adjusted atrial pulse width with improvement in capture. The atrial noncapture was causing increased V paced percentages, but he is
now a paced, V sensed. Atrial blanking was also extended as he was far field oversensing. No malignant arrhythmias noted. Device is MRI conditional. His sinus rate is in the 30s with AV conduction intact. currently a paced on review of tele
-TFTs abnormal. levothyroxine adjusted per primary service. On amiodarone 200mg daily.
-LFTs trending down from 11/08, of note CT chest 11/09 noted diffusely increased attenuation throughout the liver, consistent with possible amiodarone toxicity. Will hold amio for now.
HPI: Patient is a 72-year-old male followed by Dr. Barone at [facility] with past medical history of lymphoma in 2017 status post chemotherapy followed by splenectomy in 2018, sick sinus syndrome status post [employer] pacemaker, paroxysmal
atrial flutter, history of spontaneous subdural hematoma on Eliquis in 2017, history of stroke in 2019, status post watchman 2018, chronic amiodarone therapy, iron deficiency anemia, chronic diastolic congestive heart failure, history of orthostatic
hypotension, type 2 diabetes, CKD. Family reports over the last 2 to 3 months they noted worsening abdominal bloating. Approximately 2 weeks ago swelling became worse everywhere including in his face and feet. At that point his Lasix was
increased by his fiber optics supervisor from 20 mg every other day to 20 mg daily. Family does not note any improvement with this change. He then presented to [facility] 10/28/2023 due to shortness of breath. He was treated for heart failure
with IV Lasix. He also underwent paracentesis for 1.7 L on 11/02/2023. Nephrotoxic agents including diuretics then held because of renal insufficiency. With diuresis the swelling in his face abdomen and leg improved, however edema remains in his
left upper extremity. Echocardiogram with preserved EF, mild to moderate MR, moderate to severe TR at [facility]. CT scan without obvious vena caval obstruction however there was concern for venous stricture/stenosis by vascular at [facility].
Oncology felt no overt evidence for progressive lymphoma, however he did have abnormal kappa light chains, and he is not on current treatment. He underwent left upper extremity ultrasound which was without evidence of DVT. They contemplated CT
venography to assess for central stenosis versus thrombosis however due to his acute on chronic kidney disease this was not completed. He is now transferred to [facility] for evaluation for device extraction due to concern for possible
venous stricture. There was also concern for pacemaker infection due to elevated white blood cell count and bandemia and blood cultures are pending. By last device interrogation at Dr. Barone's office, appears device was functioning appropriately.
At [facility] family was told that he has cirrhosis, he did not carry this diagnosis before to their knowledge. Over last several days family reports changes in speech and more lethargic.
Progress Note - Dog [employer] D[employer] Mixer
Subjective
Date of Service: November 11, 2023
Objective
Labs:
11/11/23 03:41
11/11/23 03:40
Labs
Hgb 8.0 g/dL (13.0-18.0) L 11/11/23 03:41
Hct 22.2 % (39.0-52.0) L 11/11/23 03:41
Plt Count 169 10^3/uL (130-400) 11/11/23 03:41
Sodium 135 mmol/L (135-145) 11/11/23 03:40
Potassium 4.8 mmol/L (3.5-5.1) 11/11/23 03:40
BUN 51 mg/dl (9-20) H 11/11/23 03:40
Creatinine 2.2 mg/dL (0.7-1.3) H 11/11/23 03:40
Glucose 179 mg/dl (70-99) H 11/11/23 03:40
Vital Signs and I&O:
Vital Signs
Temp Pulse Resp BP Pulse Ox
97.4 F 60 20 128/71 99
11/11/23 07:58 11/11/23 08:00 11/11/23 07:58 11/11/23 06:46 11/11/23 07:58
Vital Signs
Temp Pulse Resp BP Pulse Ox
97.4 F 60 20 128/71 99
11/11/23 07:58 11/11/23 08:00 11/11/23 07:58 11/11/23 06:46 11/11/23 07:58
Intake & Output
11/09/23 11/10/23 11/11/23 11/12/23
06:59 06:59 06:59 06:59
Intake Total 240 / 240 530 / 530
Output Total 225 / 225 500 / 500
Balance -225 / -225 240 / 240 30 / 30
[2023-11-11] MEDS: LOPRESSOR 12.5 MG PO ×2 (09:03→20:25)
[2023-11-11] MEDS: PROSCAR 5 MG PO (09:03)
[2023-11-11] MEDS: DUPHALAC/CHRONULAC 20 GRAMS PO ×3 (09:03→22:55)
[2023-11-11] MEDS: ZYLOPRIM 300 MG PO (09:03)
[2023-11-11] MEDS: PACERONE 200 MG PO (09:03)
[2023-11-11] MEDS: VITAMIN D3 (cholecalciferol) 50 MCG PO (09:04)
[2023-11-11] MEDS: NOVOLOG FLEXPEN-LOW RESISTANCE 1 UNITS SC ×2 (09:04→17:37)
[2023-11-11] MEDS: ELIQUIS 2.5 MG PO ×2 (09:04→20:24)
--- NOTE | 2023-11-11 09:26 | PTCARENOTE ---
assumed care of pt from previous shift RN, paced rhythm on tele, VSS. + peripheral pulses, +2 edema to left upper extremity. Lungs are course, dry/ frequent/ harsh cough noted. Pox 99% on RA. abd slightly distended, soft, +bs, tolerating PO intake.
Voids yellow. piv flushes easily. plan of care reviewed w the pt and questions encouraged.
--- NOTE | 2023-11-11 09:53 | W.PN.NEPH.PH ---
Today's Communication / Plan
-
follow BMP
Assessment/Plan
-
Impression:
Acute kidney injury
CKD stage IIIb
Cirrhosis, new diagnosis per family
s/p paracentesis for 1.7 L on 11/02/23
Leukocytosis with bandemia - Concern at [facility] for infected PPM
Concern for venous stricture/stenosis
Elevated LFTs
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
Waldenstr�m's macroglobulinemia with thrombocytopenia
History of splenectomy in 2018
Sick sinus syndrome status post [employer] pacemaker
Paroxysmal atrial flutter
History of spontaneous subdural hematoma on Eliquis in 2017
History of stroke in 2019
Status post watchman 06/2019
Chronic diastolic congestive heart failure
HTN
HLD
Type 2 diabetes
CKD
Gout
BPH
Hypothyroidism
Plan:
-follow PVR
-can restart lasix if needed
-for paracentesis
-follow BMP
-
-
Date of Service: November 11, 2023
CC / HPI / ROS
-
Chief Complaint:
CKD
History of Present Illness:
Creatinine down to 2.2
Hemodynamically stable
on no supplemental O2
Review of Systems:
Subjectively nonoliguric
No fevers
No chest pain
edema unchanged
Labs
-
Labs:
WBC 7.2 10^3/uL (4.8-10.8) 11/11/23 03:41
RBC 2.49 10^6/uL (4.70-6.10) L 11/11/23 03:41
Hgb 8.0 g/dL (13.0-18.0) L 11/11/23 03:41
Hct 22.2 % (39.0-52.0) L 11/11/23 03:41
Plt Count 169 10^3/uL (130-400) 11/11/23 03:41
Sodium 135 mmol/L (135-145) 11/11/23 03:40
Potassium 4.8 mmol/L (3.5-5.1) 11/11/23 03:40
Chloride 104 mmol/L (98-107) 11/11/23 03:40
Carbon Dioxide 23 mmol/L (22-30) 11/11/23 03:40
BUN 51 mg/dl (9-20) H 11/11/23 03:40
Creatinine 2.2 mg/dL (0.7-1.3) H 11/11/23 03:40
eGFR 30.85 11/11/23 03:40
Glucose 179 mg/dl (70-99) H 11/11/23 03:40
Calcium 9.0 mg/dl (8.4-10.2) 11/11/23 03:40
Yth-M-Klksnufklfp Pept 4010 pg/ml 11/08/23 12:17
Albumin 3.3 g/dl (3.5-5.0) L 11/11/23 03:40
Physical Exam
-
Vital Signs:
Vital Signs
Temp Pulse Resp BP Pulse Ox
97.4 F 60 20 128/71 99
11/11/23 07:58 11/11/23 08:00 11/11/23 07:58 11/11/23 06:46 11/11/23 09:35
Cardiovascular:: Regular rate and rhythm
Respiratory:: Bilateral: Coarse
Lung Excursion:: Normal
Abdomen:: Nontender and Soft
Bowel Sounds:: Normal
Extremity Edema:: +3: Bilateral:
[2023-11-11] MEDS: NOVOLOG FLEXPEN-LOW RESISTANCE SC (13:13)
[2023-11-11 13:37] LABS: Glucose - Point of Care 298 mg/dl (70-99)
[2023-11-11] MEDS: NOVOLOG FLEXPEN-LOW RESISTANCE 3 UNITS SC (13:46)
[2023-11-11 17:37] LABS: Glucose - Point of Care 193 mg/dl (70-99)
[2023-11-11] MEDS: ROBITUSSIN 200 MG PO ×2 (17:40→23:02)
[2023-11-11 21:43] LABS: Glucose - Point of Care 183 mg/dl (70-99)
[2023-11-11] MEDS: FLOMAX 0.400000000000000022 MG PO (22:55)
[2023-11-12] VITALS (12 sets, daily range): BP systolic 60–136; BP diastolic 60–113
[2023-11-12] MEDS: FLUSH (NSS) 2 FLUSH IV ×2 (00:13→06:34)
[2023-11-12] MEDS: DECADRON 2 MG IV ×2 (00:13→06:34)
--- NOTE | 2023-11-12 01:05 | PTCARENOTE ---
Elevating left arm on 2 pillows with encouragement, rebeka wrap removed at hs. Has an occasional non-prod. cough, took robitussin at 2300. Sleeping at intervals. A-paced on the monitor in the 60's.
[2023-11-12 05:24] LABS: Hemoglobin 8.5 g/dL (13.0-18.0); Mean Corp Hgb Conc. 35.4 g/dL (33.0-37.0); Mean Corpuscular Hgb 32.1 pg (27.0-31.0); Mean Corpuscular Volume 90.6 fL (80.0-94.0); Mean Platelet Volume 11.7 fL (7.4-10.4); Platelet Count 228 10^3/uL (130-400); Red Blood Cell Count 2.65 10^6/uL (4.70-6.10); Red Cell Dist. Width 23.5 % (11.5-14.5); White Blood Cell Count 11.6 10^3/uL (4.8-10.8)
[2023-11-12 05:57] LABS: ALT (SGPT) 112 U/L (0-50); AST (SGOT) 220 U/L (17-59); Albumin 3.4 g/dl (3.5-5.0); Alkaline Phosphatase 167 U/L (38-126); Blood Urea Nitrogen 54 mg/dl (9-20); Calcium 9.1 mg/dl (8.4-10.2); Carbon Dioxide 25 mmol/L (22-30); Chloride 104 mmol/L (98-107); Estimated Creatinine Clearance 26 ml/min; Glucose 177 mg/dl (70-99); Magnesium 2.9 mg/dl (1.6-2.3); Sodium 135 mmol/L (135-145); Total Bilirubin 1.6 mg/dl (0.2-1.3); Total Protein 7.4 g/dl (6.3-8.2); eGFR 30.85
[2023-11-12] MEDS: SYNTHROID 75 MCG PO (06:33)
[2023-11-12] MEDS: SYMBICORT 80/4.5 MCG INHALER 2 PUFF INH ×2 (07:18→18:02)
[2023-11-12 08:19] LABS: Glucose - Point of Care 218 mg/dl (70-99)
[2023-11-12] MEDS: NOVOLOG FLEXPEN-LOW RESISTANCE 2 UNITS SC (08:47)
[2023-11-12] MEDS: DUPHALAC/CHRONULAC 20 GRAMS PO ×2 (08:48→21:11)
[2023-11-12] MEDS: PROSCAR 5 MG PO (08:48)
[2023-11-12] MEDS: ZYLOPRIM 300 MG PO (08:48)
[2023-11-12] MEDS: VITAMIN D3 (cholecalciferol) 50 MCG PO (08:48)
[2023-11-12] MEDS: ELIQUIS 2.5 MG PO ×2 (08:48→21:11)
[2023-11-12] MEDS: LOPRESSOR 12.5 MG PO ×2 (08:49→21:11)
--- NOTE | 2023-11-12 09:13 | PTCARENOTE ---
Addendum entered by Loni Bedolla RN 11/12/23 18:18:
also left arm swollen, rebeka wrap applied.
Original Note:
received patient from night RN, patient sitting in bed listening to his phone. there is a language barrier. monitor shows a paced, VSS, lung gtz coarse throughout remains on RA 94%. patient abd. is swollen, has active bowel sounds, and continues
to have BM,s. Dr. Denis aware, scheduled for paracentesis tomorrow.
--- NOTE | 2023-11-12 09:26 | W.PN.HOSP.TC ---
Today's Communication/Plan
-
suspect d/c tomorrow after paracentesis
change to PO prednisone
Assessment / Plan
Assessment / Plan
Patient is a 72-year-old male
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
subclavian and brachiocephalic veins around the cardiac pacemaker wires--cont eliquis, no plans for pacer removal per cards
Slurred speech/lethargy--2 to 3 days in duration and abnormal as per family and patient--no workup at [facility]--apprec neurology--PT/OT/speech--patient does have history of both subdural hematoma and nonhemorrhagic CVA--head CT shows old
finding, nothing acute--neurology started on Eliquis and stopped asa
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
Type 2 diabetes mellitus insulin requiring--Place sliding scale insulin, check hemoglobin F9e--cepgmxao insulin as able--watch with starting steroids, change to PO prednisone
Cirrhosis--presumed due to right sided heart failure--status post 1.7 L paracentesis at [facility]--may need IR for further drainage--ultrasound showed moderate ascites--consulted IR and ordered fluid studies--will stop checking ammonia as pt
seems awake and alert--cont lactulose--will need GI follow up as outpt
History of iron deficiency anemia with GI bleeding--had been receiving IV iron at [facility]--HGB 8.5--no active bleeding noted
Questionable history of chronic obstructive pulmonary disease/asthma--family states he has been in his 'inhaler' since his pneumonia in 2019--but they deny any history of lung problems--wheezing--possible COPD exacerbation--started low dose
decadron, change to PO prednisone with taper--follow--CXR from 11/08 with mild CHF
hypothyroid--TSH 12 but free T4 elevated (not reliable in hospital setting)--synthroid increased to 75mcg from 50 mcg; will need repeat TFTs in 3-4 weeks (~ end of November)
Essential hypertension--continue medications with parameters
History of diastolic congestive heart failure with mild exacerbation--as per cards
History of gout--noted--cont allopurinol
History of BPH--continue tamsulosin
Hyperlipidemia--continue atorvastatin
Paroxysmal atrial flutter--status post Watchman procedure
Previous history of subdural hematoma and non hemorrhagic CVA--continue PT/OT/speech-- baby aspirin stopped by neuro--now on Eliquis
DVT prophylaxis--sequential teds
CODE STATUS--full code--reviewed with family at bedside
Anticipated Discharge: Within 24 hours
Subjective/Interval History
-
Date of Service: November 12, 2023
language barrier
Objective Data
-
Labs:
Laboratory Results
11/12/23
04:32
WBC 11.6 H
Hgb 8.5 L
Hct 24.0 L
Plt Count 228 D
Sodium 135
Potassium 5.0
Chloride 104
Carbon Dioxide 25
BUN 54 H
Creatinine 2.2 H
Glucose 177 H
Calcium 9.1
Total Bilirubin 1.6 H
AST 220 H
ALT 112 H
Alkaline Phosphatase 167 H
Vital Signs:
max temp for 24 hours
11/11/23
23:18
Temp 98.4 F
Vital Signs
Temp Pulse Resp BP Pulse Ox
97.6 F 64 20 123/73 97
11/12/23 08:10 11/12/23 08:49 11/12/23 08:10 11/12/23 08:49 11/12/23 08:10
I&O
11/11/23 11/12/23 11/13/23
06:59 06:59 06:59
Intake Total 530 / 530 50 / 50
Output Total 500 / 500 250 / 250
Balance 30 / 30 -200 / -200
Review of Systems
-
Unable to obtain full review of systems at this time due to: Language Barrier
Physical Exam
-
General: Well Developed, Well Nourished and No Apparent Distress
HEENT: Normocephalic and Atraumatic
Respiratory: Clear to Auscultation; Negative Wheezes or Rhonchi
Cardiac: Regular Rhythm and S1/S2; Negative Murmur
GI: Soft, Nontender, Normal Bowel Sounds and Distended
Musculoskeletal: No Clubbing and No Cyanosis; Negative No Edema (left arm edema improving)
Neuro: Awake
--- NOTE | 2023-11-12 10:13 | PTCARENOTE ---
to paracentesis via stretcher.
--- NOTE | 2023-11-12 11:26 | PTCARENOTE ---
returned from paracentesis, drained 700cc in IR, zee. well.
--- NOTE | 2023-11-12 11:51 | W.PN.CARDCBS ---
Today's Communication / Plan
-
For paracentesis today
No plans for lead extraction
Will assess response to anticoagulation
Stable cardiology status for discharge and follow-up with Dr. Barone at [facility] on discharge
Impression / Plan
-
Primary Linen Supply Load Builder: Dr. Barone
PCP: Dr. Estefany Jaquez
Assessment:
Presentation to [facility] for SOB, L sided edema 10/28/23
Acute on chronic HFpEF
CARLYN on CKD
Cirrhosis, new diagnosis per family
s/p paracentesis for 1.7 L on 11/02/23
altered mental status/lethargy
Leukocytosis with bandemia - Concern at [facility] for infected PPM
Concern for venous stricture/stenosis
Transfer from [facility] to for eval for PPM extraction 11/08/23
Elevated LFTs/CT with amiodarone toxicity?
Abnormal TFTs
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
Waldenstr�m's macroglobulinemia with thrombocytopenia
History of splenectomy in 2018
Sick sinus syndrome status post [employer] pacemaker
Paroxysmal atrial flutter
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
History of stroke in 2019
Status post watchman 06/2019
Chronic amiodarone therapy�amiodarone discontinued 11/11/2023
Iron deficiency anemia
Chronic diastolic congestive heart failure
History of orthostatic hypotension
HTN
HLD
Type 2 diabetes
CKD
Gout
BPH
Hypothyroidism
ECHO 10/28/23: EF 55 to 60%, mildly dilated bilateral atria, mild AR, mild to moderate MR, moderate to severe TR
Plan:
Discussed with electrophysiology and plan is to continue anticoagulation
[place] to be high risk for lead extraction at the present time and will assess response after anticoagulation
Nephrology following for CARLYN. Cr stable at 2.2. Nephrotoxic meds remain on hold.
Neurology approved Eliquis 2.5 mg p.o. twice daily
Amiodarone was discontinued due to possible amiodarone liver toxicity
He is for paracentesis
He has been treated for wheezing with steroids
TFTs abnormal. levothyroxine adjusted per primary service.
Stable cardiology status for discharge with follow-up with Dr. Barone at [facility]
Attempted to call family but no answer
Discussed with primary service
device interrogated this admission - His atrial threshold was high and was not capturing a lead appropriately. Rep adjusted atrial pulse width with improvement in capture. The atrial noncapture was causing increased V paced percentages, but he is
now a paced, V sensed. Atrial blanking was also extended as he was far field oversensing. No malignant arrhythmias noted. Device is MRI conditional. His sinus rate is in the 30s with AV conduction intact. currently a paced on review of tele
HPI: Patient is a 72-year-old male followed by Dr. Barone at [facility] with past medical history of lymphoma in 2017 status post chemotherapy followed by splenectomy in 2018, sick sinus syndrome status post [employer] pacemaker, paroxysmal
atrial flutter, history of spontaneous subdural hematoma on Eliquis in 2018, history of stroke in 2019, status post watchman 2019, chronic amiodarone therapy, iron deficiency anemia, chronic diastolic congestive heart failure, history of orthostatic
hypotension, type 2 diabetes, CKD. Family reports over the last 2 to 3 months they noted worsening abdominal bloating. Approximately 2 weeks ago swelling became worse everywhere including in his face and feet. At that point his Lasix was
increased by his traffic line painter from 20 mg every other day to 20 mg daily. Family does not note any improvement with this change. He then presented to [facility] 10/28/2023 due to shortness of breath. He was treated for heart failure
with IV Lasix. He also underwent paracentesis for 1.7 L on 11/02/2023. Nephrotoxic agents including diuretics then held because of renal insufficiency. With diuresis the swelling in his face abdomen and leg improved, however edema remains in his
left upper extremity. Echocardiogram with preserved EF, mild to moderate MR, moderate to severe TR at [facility]. CT scan without obvious vena caval obstruction however there was concern for venous stricture/stenosis by vascular at [facility].
Oncology felt no overt evidence for progressive lymphoma, however he did have abnormal kappa light chains, and he is not on current treatment. He underwent left upper extremity ultrasound which was without evidence of DVT. They contemplated CT
venography to assess for central stenosis versus thrombosis however due to his acute on chronic kidney disease this was not completed. He is now transferred to [facility] for evaluation for device extraction due to concern for possible
venous stricture. There was also concern for pacemaker infection due to elevated white blood cell count and bandemia and blood cultures are pending. By last device interrogation at Dr. Barone's office, appears device was functioning appropriately.
At [facility] family was told that he has cirrhosis, he did not carry this diagnosis before to their knowledge. Over last several days family reports changes in speech and more lethargic.
Progress Note - Linen Supply Load Builder
Subjective
Date of Service: November 12, 2023
No complaints
Objective
Labs:
11/12/23 04:32
11/12/23 04:32
Labs
Hgb 8.5 g/dL (13.0-18.0) L 11/12/23 04:32
Hct 24.0 % (39.0-52.0) L 11/12/23 04:32
Plt Count 228 10^3/uL (130-400) D 11/12/23 04:32
Sodium 135 mmol/L (135-145) 11/12/23 04:32
Potassium 5.0 mmol/L (3.5-5.1) 11/12/23 04:32
BUN 54 mg/dl (9-20) H 11/12/23 04:32
Creatinine 2.2 mg/dL (0.7-1.3) H 11/12/23 04:32
Glucose 177 mg/dl (70-99) H 11/12/23 04:32
Vital Signs and I&O:
Vital Signs
Temp Pulse Resp BP Pulse Ox
97.5 F 61 20 136/70 96
11/12/23 11:33 11/12/23 11:09 11/12/23 11:33 11/12/23 11:09 11/12/23 11:33
Vital Signs
Temp Pulse Resp BP Pulse Ox
97.5 F 61 20 136/70 96
11/12/23 11:33 11/12/23 11:09 11/12/23 11:33 11/12/23 11:09 11/12/23 11:33
Intake & Output
11/10/23 11/11/23 11/12/23 11/13/23
06:59 06:59 06:59 06:59
Intake Total 240 / 240 530 / 530 50 / 50
Output Total 500 / 500 250 / 250
Balance 240 / 240 30 / 30 -200 / -200
Physical Exam
Physical Exam
General: Well developed, well nourished in NAD.
Neck: Supple, no JVD, HJR, carotids +2 B/L, no bruits bilaterally.
Heart: Non displaced PMI, RRR, no murmurs, No S3, S4, no rubs.
Lungs: Scattered wheezes
Extremities: No clubbing, cyanosis or edema bilaterally.
Neuro: Grossly nonfocal, awake, alert and oriented x3.
[2023-11-12 12:13] LABS: Body Fluid Albumin < 1.0 g/dl
[2023-11-12 12:22] LABS: Body Fluid Mononuclear 98.6 %; Body Fluid Polymorphonuclear 1.4 %
[2023-11-12 12:26] LABS: Body Fluid Second Tech BP; Body Fluid WBC 144 /CUMM
[2023-11-12] MEDS: NOVOLOG FLEXPEN-LOW RESISTANCE 3 UNITS SC ×2 (12:58→17:53)
[2023-11-12 12:59] LABS: Glucose - Point of Care 260 mg/dl (70-99)
--- NOTE | 2023-11-12 13:33 | W.PN.NEPH.PH ---
Today's Communication / Plan
-
lasix
Assessment/Plan
-
Impression:
Acute kidney injury
CKD stage IIIb
Cirrhosis, new diagnosis per family
s/p paracentesis for 1.7 L on 11/02/23
Leukocytosis with bandemia - Concern at [facility] for infected PPM
Concern for venous stricture/stenosis
Elevated LFTs
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
Waldenstr�m's macroglobulinemia with thrombocytopenia
History of splenectomy in 2018
Sick sinus syndrome status post [employer] pacemaker
Paroxysmal atrial flutter
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
History of stroke in 2019
Status post watchman 06/2019
Chronic diastolic congestive heart failure
HTN
HLD
Type 2 diabetes
CKD
Gout
BPH
Hypothyroidism
Plan
-restart lasix given edema and liver disease
-follow BMP
-
-
Date of Service: November 12, 2023
CC / HPI / ROS
-
Chief Complaint:
CKD
History of Present Illness:
Creatinine stable at 2.2
Hemodynamically stable
on no supplemental O2
Review of Systems:
Subjectively nonoliguric
No fevers
No chest pain
edema unchanged
Labs
-
Labs:
WBC 11.6 10^3/uL (4.8-10.8) H 11/12/23 04:32
RBC 2.65 10^6/uL (4.70-6.10) L 11/12/23 04:32
Hgb 8.5 g/dL (13.0-18.0) L 11/12/23 04:32
Hct 24.0 % (39.0-52.0) L 04/28/24 04:32
Plt Count 228 10^3/uL (130-400) D 11/12/23 04:32
Sodium 135 mmol/L (135-145) 11/12/23 04:32
Potassium 5.0 mmol/L (3.5-5.1) 11/12/23 04:32
Chloride 104 mmol/L (98-107) 11/12/23 04:32
Carbon Dioxide 25 mmol/L (22-30) 11/12/23 04:32
BUN 54 mg/dl (9-20) H 11/12/23 04:32
Creatinine 2.2 mg/dL (0.7-1.3) H 11/12/23 04:32
eGFR 30.85 11/12/23 04:32
Glucose 177 mg/dl (70-99) H 11/12/23 04:32
Calcium 9.1 mg/dl (8.4-10.2) 11/12/23 04:32
Kwn-J-Qjxwhxppohk Pept 4010 pg/ml 11/08/23 12:17
Albumin 3.4 g/dl (3.5-5.0) L 11/12/23 04:32
Physical Exam
-
Vital Signs:
Vital Signs
Temp Pulse Resp BP Pulse Ox
97.5 F 61 20 136/70 96
11/12/23 11:33 11/12/23 11:09 11/12/23 11:33 11/12/23 11:09 11/12/23 11:33
Cardiovascular:: Regular rate and rhythm
Respiratory:: Bilateral: Coarse
Lung Excursion:: Normal
Abdomen:: Nontender and Soft
Bowel Sounds:: Normal
Extremity Edema:: +2: Left:
[2023-11-12 16:53] LABS: Glucose - Point of Care 280 mg/dl (70-99)
--- NOTE | 2023-11-12 18:07 | PTCARENOTE ---
patient is sitting on side of bed eating dinner, lung gtz rhonchi, wheezing, TT resp. came and gave patient inhaler, refused Nebulizer treatment. o2 sat on RA 94%.
[2023-11-12] MEDS: FLOMAX 0.400000000000000022 MG PO (21:11)
[2023-11-12] MEDS: DUONEB 3 ML INH (21:50)
--- NOTE | 2023-11-12 22:00 | PTCARENOTE ---
Patient continues with dyspena and wheezing, prn neb treatment given
[2023-11-12 22:14] LABS: Glucose - Point of Care 264 mg/dl (70-99)
[2023-11-12] MEDS: ROBITUSSIN 200 MG PO (23:33)
--- NOTE | 2023-11-12 23:36 | PTCARENOTE ---
Patient with frequent non productive cough, prn robitussin given, pulse ox 97% on room air
--- NOTE | 2023-11-12 23:55 | PTCARENOTE ---
Patient received in bed, awake and alert, speaks little yoruba. Apaced on monitor afebrile, blood pressure as documented. Palpable pulses, +2 edema to left arm. Lungs witg scattered wheezing bilaterally, pulse ox 99% on room air,. +HERNANDEZ. Abdomen
round with hypoactive bowel sounds. Voiding. #20 g in RAC flushed and patent.
[2023-11-13] VITALS (10 sets, daily range): BP systolic 114–130; BP diastolic 51–94; PULSE 60; BMI 23.5
[2023-11-13 03:36] LABS: Hematocrit 22.8 % (39.0-52.0); Hemoglobin 8.1 g/dL (13.0-18.0); Mean Corp Hgb Conc. 35.5 g/dL (33.0-37.0); Mean Corpuscular Hgb 31.5 pg (27.0-31.0); Mean Corpuscular Volume 88.7 fL (80.0-94.0); Mean Platelet Volume 10.7 fL (7.4-10.4); Platelet Count 199 10^3/uL (130-400); Red Blood Cell Count 2.57 10^6/uL (4.70-6.10); Red Cell Dist. Width 20.9 % (11.5-14.5); White Blood Cell Count 12.2 10^3/uL (4.8-10.8)
[2023-11-13 03:57] LABS: ALT (SGPT) 91 U/L (0-50); AST (SGOT) 166 U/L (17-59); Albumin 3.2 g/dl (3.5-5.0); Alkaline Phosphatase 159 U/L (38-126); Blood Urea Nitrogen 54 mg/dl (9-20); Calcium 9.1 mg/dl (8.4-10.2); Carbon Dioxide 20 mmol/L (22-30); Chloride 107 mmol/L (98-107); Estimated Creatinine Clearance 27 ml/min; Glucose 186 mg/dl (70-99); Magnesium 2.9 mg/dl (1.6-2.3); Potassium 4.5 mmol/L (3.5-5.1); Sodium 138 mmol/L (135-145); Total Bilirubin 1.6 mg/dl (0.2-1.3); eGFR 32.62
[2023-11-13] MEDS: SYNTHROID 75 MCG PO (06:02)
--- NOTE | 2023-11-13 07:30 | W.PN.HOSP.TC ---
Today's Communication/Plan
-
Will continue anticoagulation and attempted diuresis
With significant wheezing still ongoing and no clear etiology as patient's family denies significant COPD/CT imaging showing bilateral endobronchial thickening with questionable alveolar pulmonary edema and/or endobronchial infection
With question of amiodarone toxicity continue to be held
Assessment / Plan
Assessment / Plan
Patient is a 72-year-old male
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
subclavian and brachiocephalic veins around the cardiac pacemaker wires--cont eliquis, no plans for pacer removal per cards
Slurred speech/lethargy--2 to 3 days in duration and abnormal as per family and patient--no workup at [facility]--apprec neurology--PT/OT/speech--patient does have history of both subdural hematoma and nonhemorrhagic CVA--head CT shows old
finding, nothing acute--neurology started on Eliquis and stopped asa
History of non-Hodgkin's lymphoma with Waldenstr�m's macroglobulinemia status postsplenectomy for thrombocytopenia--completed course of chemotherapy--workup at [facility] shows no progression of lymphoma
Type 2 diabetes mellitus insulin requiring--Place sliding scale insulin, check hemoglobin J9g--uihnpnrd insulin as able--watch with starting steroids, change to PO prednisone
Cirrhosis--presumed due to right sided heart failure--status post 1.7 L paracentesis at [facility]--further drainage here by IR 700 cc removed November 11--ultrasound showed moderate ascites--consulted IR and ordered fluid studies--will stop
checking ammonia as pt seems awake and alert--cont lactulose--will need GI follow up as outpt
History of iron deficiency anemia with GI bleeding--had been receiving IV iron at [facility]--HGB 8.5--no active bleeding noted
Questionable history of chronic obstructive pulmonary disease/asthma--family states he has been in his 'inhaler' since his pneumonia in 2019--but they deny any history of lung problems--wheezing--possible COPD exacerbation--started low dose
decadron, change to PO prednisone with taper--follow--CXR from 11/08 with mild CHF/PULMONARY consultation and input prior to discharge
hypothyroid--TSH 12 but free T4 elevated (not reliable in hospital setting)--synthroid increased to 75mcg from 50 mcg; will need repeat TFTs in 3-4 weeks (~ end of November)
Essential hypertension--continue medications with parameters
History of diastolic congestive heart failure with mild exacerbation--as per cards
History of gout--noted--cont allopurinol
History of BPH--continue tamsulosin
Hyperlipidemia--continue atorvastatin
Paroxysmal atrial flutter--status post Watchman procedure
Previous history of subdural hematoma and non hemorrhagic CVA--continue PT/OT/speech-- baby aspirin stopped by neuro--now on Eliquis
DVT prophylaxis--sequential teds
CODE STATUS--full code--reviewed with family at bedside
Anticipated Discharge: Within 24 hours
Subjective/Interval History
-
Date of Service: November 13, 2023
Difficult to communicate with did most of communication on the phone with his son regarding history and management issues at this point going forward for follow-up continues to have significant cough and wheezing
Objective Data
-
Labs:
Laboratory Results
11/13/23
02:47
WBC 12.2 H
Hgb 8.1 L
Hct 22.8 L
Plt Count 199
Sodium 138
Potassium 4.5
Chloride 107
Carbon Dioxide 20 L
BUN 54 H
Creatinine 2.1 H
Glucose 186 H
Calcium 9.1
Total Bilirubin 1.6 H
AST 166 H
ALT 91 H
Alkaline Phosphatase 159 H
Vital Signs:
Vital Signs
Temp Pulse Resp BP Pulse Ox
97.3 F 61 20 130/89 96
11/13/23 03:10 11/13/23 04:00 11/13/23 03:10 11/13/23 02:40 11/13/23 03:10
I&O
11/12/23 11/13/23 11/14/23
06:59 06:59 06:59
Intake Total 50 / 50 120 / 120
Output Total 250 / 250 500 / 500
Balance -200 / -200 -380 / -380
Review of Systems
-
History Source: Patient and Family
Constitutional: Reports Weight Loss
EENT: Reports No Symptoms Reported
Respiratory: Reports Cough and Wheezing
Cardiac: Reports No Symptoms
Abdomen/GI: Reports No Symptoms
Physical Exam
-
General: Respiratory Distress
HEENT: Normocephalic
Respiratory: Wheezes, Rhonchi and Crackles
Cardiac: Regular Rhythm
Musculoskeletal: Edema, Left Upper Extrem (Unchanged)
Skin: Warm and Dry
Data Reviewed
-
Total Time Spent with Patient (in minutes): 45
CT Scan: Report Reviewed by me
Ultrasound: Report Reviewed by me
[2023-11-13 08:23] LABS: Glucose - Point of Care 208 mg/dl (70-99)
[2023-11-13] MEDS: DUONEB 3 ML INH ×2 (08:34→17:54)
[2023-11-13] MEDS: SYMBICORT 80/4.5 MCG INHALER 2 PUFF INH ×2 (08:34→19:33)
[2023-11-13] MEDS: NOVOLOG FLEXPEN-LOW RESISTANCE 2 UNITS SC (08:59)
[2023-11-13] MEDS: LASIX 20 MG PO (09:00)
[2023-11-13] MEDS: LOPRESSOR 12.5 MG PO ×2 (09:00→20:19)
[2023-11-13] MEDS: ELIQUIS 2.5 MG PO ×2 (09:00→20:19)
[2023-11-13] MEDS: DELTASONE 30 MG PO (09:00)
[2023-11-13] MEDS: DUPHALAC/CHRONULAC 20 GRAMS PO ×2 (09:00→20:19)
[2023-11-13] MEDS: ZYLOPRIM 300 MG PO (09:01)
[2023-11-13] MEDS: PROSCAR 5 MG PO (09:01)
--- NOTE | 2023-11-13 10:18 | W.PN.CARDCBS ---
Addendum entered and electronically signed by Tiffany Greene MD 11/13/23 12:01:
I saw and examined the patient.
The Senior [employer] Programmer's note was reviewed and I agree with the note.
Comment: Cardiac stable. Plan in place.
Oral anticoagulation per neurology at low-dose.
Cardiac stable. Diuretics have been managed by nephrology.
Watchman noted for atrial fibrillation. straight truck driver reviewed. Pacemaker in place.
Cardiac stable for discharge with follow-up.
Original Note:
Today's Communication / Plan
-
Continue Eliquis 2.5mg BID
Amiodarone on hold
Follow up w/ Dr. Barone arranged.
Impression / Plan
-
Primary Machine Design Checker: Dr. Barone
PCP: Dr. Estefany Jaquez
Assessment:
Presentation to [facility] for SOB, L sided edema 10/28/23
Acute on chronic HFpEF
CARLYN on CKD
Cirrhosis, new diagnosis per family
s/p paracentesis for 1.7 L on 11/02/23
s/p paracentesis for 700 cc 11/12/23
altered mental status/lethargy
Leukocytosis with bandemia - Concern at [facility] for infected PPM
Concern for venous stricture/stenosis
Transfer from [facility] to for eval for PPM extraction 11/08/23
Elevated LFTs/CT with amiodarone toxicity?
Abnormal TFTs
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
Waldenstr�m's macroglobulinemia with thrombocytopenia
History of splenectomy in 2018
SSS s/p [employer] pacemaker
Paroxysmal atrial flutter
h/o spontaneous subdural hematoma on Eliquis in 2017
h/o stroke in 2019
s/p watchman 06/2019
Chronic amiodarone therapy�amiodarone discontinued 11/11/2023
Iron deficiency anemia
History of orthostatic hypotension
HTN
HLD
Type 2 diabetes
CKD
Gout
BPH
Hypothyroidism
ECHO 10/28/23: EF 55 to 60%, mildly dilated bilateral atria, mild AR, mild to moderate MR, moderate to severe TR
Plan:
-Patient initially presented to [facility] with worsening L sided swelling and SOB. He was diuresed with improvement aside from LUE swelling. There was concern for venous stricture/stenosis from PPM wires and therefore patient was transferred to 11/07
for assessment for PPM lead extraction.
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 No CT evidence for thrombosis of SVC, R brachiocephalic vein, R subclavian vein, or internal jugular veins.
-No plan for lead extraction at this time as patient is felt to be high risk. Will continue anticoagulation for now and reassess as OP. Started on Eliquis 2.5mg BID 11/07 after approval by neurology.
-Nephrology following for CARLYN. Cr stable at 2.1. Lasix restarted by nephrology 11/12.
-TFTs abnormal. levothyroxine adjusted per primary service.
-LFTs trending down from 11/08, of note CT chest 11/09 noted diffusely increased attenuation throughout the liver, consistent with possible amiodarone toxicity. Amiodarone has been on hold.
-Paracentesis 11/11 w/ 700 cc removed.
-device interrogated this admission - His atrial threshold was high and was not capturing a lead appropriately. Rep adjusted atrial pulse width with improvement in capture. The atrial noncapture was causing increased V paced percentages, but he is
now a paced, V sensed. Atrial blanking was also extended as he was far field oversensing. No malignant arrhythmias noted. Device is MRI conditional. His sinus rate is in the 30s with AV conduction intact. currently a paced on review of tele
-Follow up w/ Dr. Barone arranged.
HPI: Patient is a 72-year-old male followed by Dr. Barone at [facility] with past medical history of lymphoma in 2017 status post chemotherapy followed by splenectomy in 2018, sick sinus syndrome status post [employer] pacemaker, paroxysmal
atrial flutter, history of spontaneous subdural hematoma on Eliquis in 2018, history of stroke in 2019, status post watchman 2019, chronic amiodarone therapy, iron deficiency anemia, chronic diastolic congestive heart failure, history of orthostatic
hypotension, type 2 diabetes, CKD. Family reports over the last 2 to 3 months they noted worsening abdominal bloating. Approximately 2 weeks ago swelling became worse everywhere including in his face and feet. At that point his Lasix was
increased by his human resource statistician from 20 mg every other day to 20 mg daily. Family does not note any improvement with this change. He then presented to [facility] 10/28/2023 due to shortness of breath. He was treated for heart failure
with IV Lasix. He also underwent paracentesis for 1.7 L on 11/02/2023. Nephrotoxic agents including diuretics then held because of renal insufficiency. With diuresis the swelling in his face abdomen and leg improved, however edema remains in his
left upper extremity. Echocardiogram with preserved EF, mild to moderate MR, moderate to severe TR at [facility]. CT scan without obvious vena caval obstruction however there was concern for venous stricture/stenosis by vascular at [facility].
Oncology felt no overt evidence for progressive lymphoma, however he did have abnormal kappa light chains, and he is not on current treatment. He underwent left upper extremity ultrasound which was without evidence of DVT. They contemplated CT
venography to assess for central stenosis versus thrombosis however due to his acute on chronic kidney disease this was not completed. He is now transferred to [facility] for evaluation for device extraction due to concern for possible
venous stricture. There was also concern for pacemaker infection due to elevated white blood cell count and bandemia and blood cultures are pending. By last device interrogation at Dr. Barone's office, appears device was functioning appropriately.
At [facility] family was told that he has cirrhosis, he did not carry this diagnosis before to their knowledge. Over last several days family reports changes in speech and more lethargic.
Progress Note - Machine Design Checker
Subjective
Date of Service: November 13, 2023
Feeling well. No complaints this AM. Still w/ LUE edema
Objective
Labs:
11/13/23 02:47
11/13/23 02:47
Labs
Hgb 8.1 g/dL (13.0-18.0) L 11/13/23 02:47
Hct 22.8 % (39.0-52.0) L 11/13/23 02:47
Plt Count 199 10^3/uL (130-400) 11/13/23 02:47
Sodium 138 mmol/L (135-145) 11/13/23 02:47
Potassium 4.5 mmol/L (3.5-5.1) 11/13/23 02:47
BUN 54 mg/dl (9-20) H 11/13/23 02:47
Creatinine 2.1 mg/dL (0.7-1.3) H 11/13/23 02:47
Glucose 186 mg/dl (70-99) H 11/13/23 02:47
Vital Signs and I&O:
Vital Signs
Temp Pulse Resp BP Pulse Ox
97.3 F 64 15 124/70 96
11/13/23 07:58 11/13/23 09:00 11/13/23 08:36 11/13/23 09:00 11/13/23 08:36
Vital Signs
Temp Pulse Resp BP Pulse Ox
97.3 F 64 15 124/70 96
11/13/23 07:58 11/13/23 09:00 11/13/23 08:36 11/13/23 09:00 11/13/23 08:36
Intake & Output
11/11/23 11/12/23 11/13/23 11/14/23
06:59 06:59 06:59 06:59
Intake Total 530 / 530 50 / 50 120 / 120
Output Total 500 / 500 250 / 250 500 / 500
Balance -200 / -200 -380 / -380
Physical Exam
Physical Exam
GEN: No distress, awake, alert, oriented x3
HEENT: supple, mmm
LUNGS: scattered wheezes
CV: Reg, S1/S2,no murmur
ABD: Distended, nontender
EXT: No clubbing or cyanosis. +LUE edema
NEURO: Gross non-focal
SKIN: Warm, dry, no rash
--- NOTE | 2023-11-13 11:29 | CM ---
Chart reviewed. Patient is independent of ADLS, lives with his and son in a 2 [address], 5 JESU, 0 DME. Plan is for the patient to return home with Fallon FIELDS CM to follow
--- NOTE | 2023-11-13 12:07 | W.PN.NEPH.PH ---
Today's Communication / Plan
-
follow labs and cont lasix
Assessment/Plan
-
Impression:
Acute kidney injury
CKD stage IIIb-follows [facility]
Cirrhosis, new diagnosis per family
s/p paracentesis for 1.7 L on 11/02/23 at [facility]
Leukocytosis with bandemia - Concern at [facility] for infected PPM
Concern for venous stricture/stenosis
Elevated LFTs
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
Waldenstr�m's macroglobulinemia with thrombocytopenia
History of splenectomy in 2018
Sick sinus syndrome status post [employer] pacemaker
Paroxysmal atrial flutter
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
History of stroke in 2019
Status post watchman 06/2019
Chronic diastolic congestive heart failure
HTN
HLD
Type 2 diabetes
CKD
Gout
BPH
Hypothyroidism
Plan
cr seem slowly improving to 2.1
underlying CKD and followed by [facility]
cont lasix and extra dose if needed , FR 48 ounces/day
on Prednisone per primary
d/w pt and family at bedside
-follow BMP
-
-
Date of Service: November 13, 2023
CC / HPI / ROS
-
Chief Complaint:
CKD
History of Present Illness:
Creatinine stable at 2.1
Hemodynamically stable
on no supplemental O2
no fever, k 4.5
hb stable 8.1
wt decreasing
Review of Systems:
nonoliguric
No fevers
No chest pain
sob slow to improve
edema improving slowly
Labs
-
Labs:
WBC 12.2 10^3/uL (4.8-10.8) H 11/13/23 02:47
RBC 2.57 10^6/uL (4.70-6.10) L 11/13/23 02:47
Hgb 8.1 g/dL (13.0-18.0) L 11/13/23 02:47
Hct 22.8 % (39.0-52.0) L 11/13/23 02:47
Plt Count 199 10^3/uL (130-400) 11/13/23 02:47
Sodium 138 mmol/L (135-145) 11/13/23 02:47
Potassium 4.5 mmol/L (3.5-5.1) 11/13/23 02:47
Chloride 107 mmol/L (98-107) 11/13/23 02:47
Carbon Dioxide 20 mmol/L (22-30) L 11/13/23 02:47
BUN 54 mg/dl (9-20) H 11/13/23 02:47
Creatinine 2.1 mg/dL (0.7-1.3) H 11/13/23 02:47
eGFR 32.62 11/13/23 02:47
Glucose 186 mg/dl (70-99) H 11/13/23 02:47
Calcium 9.1 mg/dl (8.4-10.2) 11/13/23 02:47
Irx-H-Viulztkblcu Pept 4010 pg/ml 11/08/23 12:17
Albumin 3.2 g/dl (3.5-5.0) L 11/13/23 02:47
Physical Exam
-
Vital Signs:
Vital Signs
Temp Pulse Resp BP Pulse Ox
97.3 F 60 20 124/70 98
11/13/23 10:58 11/13/23 10:00 11/13/23 10:58 11/13/23 09:00 11/13/23 10:58
Cardiovascular:: Regular rate and rhythm
Respiratory:: Bilateral: Coarse
Lung Excursion:: Normal
Abdomen:: Distended, Nontender and Soft
Extremity Edema:: None: Bilateral:
Rocha Catheter: No
Other Findings::
left UE edema
[2023-11-13 12:39] LABS: Glucose - Point of Care 250 mg/dl (70-99)
[2023-11-13] MEDS: NOVOLOG FLEXPEN-LOW RESISTANCE 3 UNITS SC ×2 (13:16→17:47)
[2023-11-13] MEDS: ROBITUSSIN 200 MG PO ×2 (13:16→17:45)
[2023-11-13] MEDS: VITAMIN D3 (cholecalciferol) 50 MCG PO (13:16)
--- NOTE | 2023-11-13 13:19 | PTCARENOTE ---
patients family at bedside, patient coughing, Robitussin po given as ordered.
--- NOTE | 2023-11-13 14:40 | CON.PUL ---
Consultation
Consultation Request
Date/Time Consultation Requested: 11/12
Date/Time Consultation Performed: 11/12
Reason for Consultation: Abnormal imaging, cough
Medical History
-
History of Present Illness:
History primarily obtained from son via phone, patient and medical records. Patient with mild language barrier. 72-year-old male with complex medical history, including lymphoma in 2017 followed by chemotherapy/splenectomy in 2018. Patient also
has history of sick sinus syndrome, atrial flutter with pacemaker on chronic anticoagulation. Patient developed few months of increased abdominal bloating and increased swelling involving face and feet. Patient was diuresed. Patient was
subsequently admitted to [facility] 10/28/2023, treated for heart failure, paracentesis. At that time echocardiogram showed moderate MR but there was concern regarding venous stricture/stenosis was contributing to left upper extremity
swelling. Patient is now transferred to [facility] for device extraction due to concern for possible venous stricture on 11/08/2023. According to son, patient developed cough while at [facility] and has had a persistent cough since.
There is no clear history of chest pain, hemoptysis, fevers. We are asked to comment on pulmonary process 11/13/2023 including imaging
Hospital course reviewed. 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 Patient also noted to have slowed age, started on Eliquis. Aspirin stopped. Mental status apparently had
improved. Patient also treated with steroids for wheezing, possible COPD exacerbation
.
PMH: History of lymphoma 2017 followed by chemotherapy/splenectomy. History of pacemaker for sick sinus syndrome/atrial flutter on chronic amiodarone. History of stroke in 2019, spontaneous SDH while on Eliquis in 2018. History of Watchman
procedure 2019. History of heart failure, anemia, diabetes, chronic kidney disease, orthostasis, gout, hypothyroidism. He also has a new diagnosis of cirrhosis, status post paracentesis October 2023
Past Medical History
Past Medical History: None (See above)
Past Surgical History: None (See above)
Social History
Tobacco: Former Smoker (Quit 40 years ago)
Alcohol: Occasional
Drug: None
Living: With Family
Employment: Retired
Family History
Family History: Other (Unremarkable for lung disease, blood clots)
Allergies / Home Medications
Allergies
Allergy/AdvReac Type Severity Reaction Status Date / Time
No Known Allergies Allergy Verified 07/02/19 07:08
Home Medications
�Medication �Instructions �Recorded �Confirmed �Last Taken �Type
atorvastatin 10 mg tablet 20 mg PO HS High Cholesterol 07/02/19 11/08/23 11/07/23 History
cholecalciferol (vitamin D3) 50 2,000 unit PO DAILY Supplement 07/02/19 11/08/23 08/27/19 10:00 History
mcg (2,000 unit) tablet
finasteride 5 mg tablet 5 mg PO DAILY Urinary Issue 07/02/19 11/08/23 08/27/19 22:00 History
metoprolol tartrate 25 mg tablet 12.5 mg PO BID Blood Pressure 07/02/19 11/08/23 08/27/19 22:00 History
tamsulosin 0.4 mg capsule 0.4 mg PO HS Urinary Issue 07/02/19 11/08/23 11/07/23 History
aspirin 81 mg chewable tablet 81 mg PO DAILY 07/03/19 11/08/23 08/27/19 22:00 Rx
allopurinol 300 mg tablet 300 mg PO DAILY Gout 08/28/19 11/08/23 08/27/19 22:00 History
amiodarone 200 mg tablet (Pacerone) 200 mg PO DAILY Arrhythmia 08/28/19 11/08/23 08/27/19 22:00 History
budesonide-formoterol HFA 80 2 puff inhalation BID 11/08/23 11/08/23 Unknown History
mcg-4.5 mcg/actuation aerosol Lung/Breathing Issues
inhaler
empagliflozin 25 mg tablet 25 mg PO DAILY Diabetes 11/08/23 11/08/23 Unknown History
furosemide 20 mg tablet 20 mg PO DAILY Fluid 11/08/23 11/08/23 Unknown History
Retention/Swelling
levothyroxine 50 mcg tablet 50 mcg PO DAILY Thyroid 11/08/23 11/08/23 Unknown History
Review of Systems
-
History Source: Family
All other systems: Negative unless noted
Vitals / Labs / Diagnostic Testing
Vital Signs
Temp Pulse Resp BP Pulse Ox
97.3 F 64 20 129/64 98
11/13/23 10:58 11/13/23 14:00 11/13/23 10:58 11/13/23 11:23 11/13/23 10:58
Lab Data
11/13/23 02:47
11/13/23 02:47
Microbiology
11/08/23 12:21 Blood/Venous Blood Culture - Final
No Growth - Final Report
11/12/23 10:58 Peritoneal Fluid Body Fluid Culture - Preliminary
No Growth After 18-24 Hours
11/12/23 10:58 Peritoneal Fluid Gram Stain - Preliminary
Diagnostic Testing:
Physical Exam
-
HEENT: Normocephalic, Anicteric and Other (Poor dentition)
Cardiovascular: S1/S2, Regular Rhythm, Murmur (n), Rub (n), Peripheral Edema (tr) and Calf Tenderness (n)
Respiratory: Wheeze (n), Rales (Mild bibasilar), Rhonchi (Scattered) and Non-Labored Respirations
GI: Soft, Non Distended and Non Tender
Neurology: Awake, Alert and No Motor Deficits (Moves all extremities)
Skin: Other (No clubbing, no cyanosis)
General: Comfortable
Assessment
-
72-year-old male with complex medical history including spontaneous subdural hematoma while on anticoagulation, stroke, chronic amiodarone therapy, history of non-Hodgkin's lymphoma 2017 followed by chemotherapy/splenectomy now presents with
increased abdominal bloating, upper extremity swelling. Underwent paracentesis at outside hospital, transferred to [facility] 11/07 for possible lead extraction due to venous stricture. CT imaging identified bilateral patchy infiltrate
which we are asked to comment on in the setting of amiodarone therapy
Bilateral basilar bronchiolitis, nodular infiltrate
Chronicity unclear
Acute bronchitis x 1 week
Newly diagnosed cirrhosis
Moderate per imaging
Varices noted per imaging
Required paracentesis x 2
Acute respiratory insufficiency, left upper extremity edema
Admitted to [facility] 10/28/23
Transfer to [facility] 11/08/23
Questionable slurred speech during hospital stay
Eliquis restarted per neuro recommendations
Conditions present prior to admission
History of non-Hodgkin's lymphoma 2016
Status postchemotherapy/splenectomy
Atrial flutter, chronic amiodarone therapy
Discontinued 11/11/2023
History of spontaneous SDH on Eliquis 2016
History of stroke 2018
Hypothyroidism
Diabetes
Chronic kidney disease
BPH
Plan/recommendations
At this time, patient appears to be nontoxic-appearing, comfortable
Throughout interview and examination, patient with cough, difficult to expectorate
Chest exam with few scattered rhonchi
CT chest with mild bibasilar bronchial airway thickening, bronchiolitis
Brief episode of slurring of speech during hospital stay noted, unclear whether patient may have had a mild aspiration event. However, bronchitic symptoms started while at outside hospital per son
Moving forward
Continue with management as you are. Nebulized therapy as needed
Remains on Symbicort, outpatient inhaler regimen. Would not change.
Patient is also on steroid therapy during hospital stay because of wheezing. Presently on 30 mg. Continue to wean
We will add budesonide to nebulized regimen twice a day
Hold on empiric antibiotics for now. Follow clinically. Patient had risk for nosocomial infection
Add Acapella device, chest percussion therapy
Out of bed to chair, ambulate, PT/OT
Patient did have speech and swallow evaluation. If bronchitic symptoms persist, may require formal swallowing evaluation/VSE
Note that patient has already been taken off amiodarone therapy as of 11/10, therefore possibility of amiodarone toxicity in the lung less pertinent at this time,
Reviewed with son by phone
Complex decision making process
Will follow
[2023-11-13 17:47] LABS: Glucose - Point of Care 265 mg/dl (70-99)
--- NOTE | 2023-11-13 17:53 | PTCARENOTE ---
patient is coughing, Robitussin po given as ordered. lung gtz rhonchi , TT Resp. to please come give patient a treatment.
[2023-11-13] MEDS: PULMICORT 0.5 MG INH (17:59)
[2023-11-13 21:49] LABS: Glucose - Point of Care 335 mg/dl (70-99)
[2023-11-13] MEDS: FLOMAX 0.400000000000000022 MG PO (22:51)
--- NOTE | 2023-11-13 23:47 | PTCARENOTE ---
Pt rec'd at change of shift awake,alert talking to family at bedside. Harsh non productive cough with exp wheezing noted throughout. A paced on telemetry. Left arm rebeka wrap removed at HS. swelling worse at antecub site,minimal at left wrist. good
radial pulse.
[2023-11-14] VITALS (17 sets, daily range): BP systolic 110–145; BP diastolic 51–93; BMI 23.6
[2023-11-14 01:02] LABS: Glucose - Point of Care 286 mg/dl (70-99)
[2023-11-14] MEDS: SYNTHROID 75 MCG PO (05:28)
[2023-11-14 05:45] LABS: Hematocrit 22.9 % (39.0-52.0); Hemoglobin 8.3 g/dL (13.0-18.0); Mean Corp Hgb Conc. 36.2 g/dL (33.0-37.0); Mean Corpuscular Hgb 32.2 pg (27.0-31.0); Mean Corpuscular Volume 88.8 fL (80.0-94.0); Mean Platelet Volume 10.8 fL (7.4-10.4); Platelet Count 202 10^3/uL (130-400); Red Blood Cell Count 2.58 10^6/uL (4.70-6.10); Red Cell Dist. Width 21.3 % (11.5-14.5); White Blood Cell Count 11.7 10^3/uL (4.8-10.8)
--- NOTE | 2023-11-14 06:22 | PTCARENOTE ---
Pt transferred to IMU for IVU overflow. report called to floor. pt transported via w/c with belongings at bedside.
[2023-11-14 06:24] LABS: Blood Urea Nitrogen 50 mg/dl (9-20); Carbon Dioxide 24 mmol/L (22-30); Chloride 108 mmol/L (98-107); Estimated Creatinine Clearance 32 ml/min; Glucose 176 mg/dl (70-99); Potassium 4.8 mmol/L (3.5-5.1); Sodium 137 mmol/L (135-145); eGFR 39.25
--- NOTE | 2023-11-14 06:59 | W.PN.HOSP.TC ---
Today's Communication/Plan
-
For video swallow eval today
Repeat chest x-ray
Appreciate pulmonary input
Assessment / Plan
Assessment / Plan
Patient is a 72-year-old male
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
subclavian and brachiocephalic veins around the cardiac pacemaker wires--cont eliquis, no plans for pacer removal per cards
Slurred speech/lethargy--2 to 3 days in duration and abnormal as per family and patient--no workup at [facility]--apprec neurology--PT/OT/speech--patient does have history of both subdural hematoma and nonhemorrhagic CVA--head CT shows old
finding, nothing acute--neurology started on Eliquis and stopped asa
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
Type 2 diabetes mellitus insulin requiring--Place sliding scale insulin, check hemoglobin N7g--piwwfjnn insulin as able--watch with starting steroids, change to PO prednisone
Cirrhosis--presumed due to right sided heart failure--status post 1.7 L paracentesis at [facility]--further drainage here by IR 700 cc removed November 11--ultrasound showed moderate ascites--consulted IR and ordered fluid studies--will stop
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
outpt/amiodarone has been discontinued
History of iron deficiency anemia with GI bleeding--had been receiving IV iron at [facility]--HGB 8.5--no active bleeding noted
Questionable history of chronic obstructive pulmonary disease/asthma--family states he has been in his 'inhaler' since his pneumonia in 2019--but they deny any history of lung problems--wheezing--possible COPD exacerbation--started low dose
decadron, change to PO prednisone with taper--follow--CXR from 11/08 with mild CHF/PULMONARY consultation and input prior to discharge/there is a question of recurrent aspiration pneumonitis and to have video swallow eval today November 13
hypothyroid--TSH 12 but free T4 elevated (not reliable in hospital setting)--synthroid increased to 75mcg from 50 mcg; will need repeat TFTs in 3-4 weeks (~ end of November)
Essential hypertension--continue medications with parameters
History of diastolic congestive heart failure with mild exacerbation--as per cards
History of gout--noted--cont allopurinol
History of BPH--continue tamsulosin
Hyperlipidemia--continue atorvastatin
Paroxysmal atrial flutter--status post Watchman procedure
Previous history of subdural hematoma and non hemorrhagic CVA--continue PT/OT/speech-- baby aspirin stopped by neuro--now on Eliquis
DVT prophylaxis--sequential teds
CODE STATUS--full code--reviewed with family at bedside
Anticipated Discharge: 24 - 48 hours
Subjective/Interval History
-
Date of Service: November 14, 2023
Continues with a very harsh cough and reasonably has difficulty clearing his airway to undergo video swallow eval today admits to some increasing abdominal distention
Objective Data
-
Labs:
Laboratory Results
11/14/23
05:22
WBC 11.7 H
Hgb 8.3 L
Hct 22.9 L
Plt Count 202
Sodium 137
Potassium 4.8
Chloride 108 H
Carbon Dioxide 24
BUN 50 H
Creatinine 1.8 H
Glucose 176 H
Calcium 9.0
Vital Signs:
Vital Signs
Temp Pulse Resp BP Pulse Ox
98.1 F 62 24 125/64 98
11/14/23 05:01 11/14/23 05:01 11/14/23 05:01 11/14/23 05:01 11/14/23 05:01
I&O
11/12/23 11/13/23 11/14/23
06:59 06:59 06:59
Intake Total 50 / 50 120 / 120 100 / 100
Output Total 250 / 250 500 / 500 490 / 490
Balance -200 / -200 -380 / -380 -390 / -390
Review of Systems
-
History Source: Patient and Family (Spoke to family member by phone they speak [place])
Constitutional: Denies Fever
Respiratory: Reports Cough and Wheezing
Physical Exam
-
General: No Apparent Distress
HEENT: Normocephalic
Respiratory: Wheezes, Rhonchi and Crackles
Cardiac: Regular Rhythm (Paced rhythm on monitor)
GI: Soft
Psych: Calm
Data Reviewed
-
Total Time Spent with Patient (in minutes): 56
Labs: Labs Reviewed by me (White cells continue to trend down to 11.7 creatinine still trending down 1.8/LFTs continue to trend down/Centesis fluid looks benign)
[2023-11-14] MEDS: PULMICORT 0.5 MG INH ×2 (07:18→19:42)
[2023-11-14] MEDS: SYMBICORT 80/4.5 MCG INHALER 2 PUFF INH (07:18)
[2023-11-14 08:40] LABS: Glucose - Point of Care 182 mg/dl (70-99)
[2023-11-14] MEDS: LASIX 20 MG PO (09:02)
[2023-11-14] MEDS: ZYLOPRIM 300 MG PO (09:02)
[2023-11-14] MEDS: LOPRESSOR 12.5 MG PO ×2 (09:02→20:40)
[2023-11-14] MEDS: ELIQUIS 2.5 MG PO ×2 (09:03→20:40)
[2023-11-14] MEDS: VITAMIN D3 (cholecalciferol) 50 MCG PO (09:03)
[2023-11-14] MEDS: DELTASONE 30 MG PO (09:03)
[2023-11-14] MEDS: PROSCAR 5 MG PO (09:03)
[2023-11-14] MEDS: DUPHALAC/CHRONULAC 20 GRAMS PO ×2 (09:04→20:39)
[2023-11-14] MEDS: NOVOLOG FLEXPEN-HIGH RESISTANCE 4 UNITS SC (11:24)
[2023-11-14] MEDS: ROBITUSSIN 200 MG PO ×2 (11:29→20:41)
[2023-11-14 11:34] LABS: Glucose - Point of Care 240 mg/dl (70-99)
--- NOTE | 2023-11-14 11:53 | PTCARENOTE ---
Received this am AAOx3 called his son on speaker phone- discussed POC with pt and son. Strong NPC and audible wheezing noted. 92% on RAIR. 100% A paced on tele. VSE and CXR completed in dept. Breakfast ordered upon return, sitting up in
recliner chair.
[2023-11-14] MEDS: NOVOLOG FLEXPEN-HIGH RESISTANCE SC (12:51)
--- NOTE | 2023-11-14 12:51 | W.PN.NEPH.PH ---
Today's Communication / Plan
-
cont low dose lasix and extra dose if needed
Assessment/Plan
-
Impression:
Acute kidney injury
CKD stage IIIb-follows [facility]
Cirrhosis, new diagnosis per family
s/p paracentesis for 1.7 L on 11/02/23 at [facility]
Leukocytosis with bandemia - Concern at [facility] for infected PPM
Concern for venous stricture/stenosis
Elevated LFTs
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
Waldenstr�m's macroglobulinemia with thrombocytopenia
History of splenectomy in 2018
Sick sinus syndrome status post [place] sl[place]et pacemaker
Paroxysmal atrial flutter
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
History of stroke in 2018
Status post watchman 06/2019
Chronic diastolic congestive heart failure
HTN
HLD
Type 2 diabetes
CKD
Gout
BPH
Hypothyroidism
Plan
cr seem slowly improving to 1.8
underlying CKD and followed by [facility]
cont lasix and extra dose if needed , FR 48 ounces/day
on Prednisone per primary/pulm, off Amio
for swallow eval today
d/w pt and family at bedside
-follow BMP
-
-
Date of Service: November 14, 2023
CC / HPI / ROS
-
Chief Complaint:
CKD
History of Present Illness:
Creatinine better at 1.8
Hemodynamically stable
on no supplemental O2
no fever, k 4.8
hb stable 8.3
wt ni change
Review of Systems:
nonoliguric
No fevers
No chest pain
sob slow to improve
Labs
-
Labs:
WBC 11.7 10^3/uL (4.8-10.8) H 11/14/23 05:22
RBC 2.58 10^6/uL (4.70-6.10) L 11/14/23 05:22
Hgb 8.3 g/dL (13.0-18.0) L 11/14/23 05:22
Hct 22.9 % (39.0-52.0) L 11/14/23 05:22
Plt Count 202 10^3/uL (130-400) 11/14/23 05:22
Sodium 137 mmol/L (135-145) 11/14/23 05:22
Potassium 4.8 mmol/L (3.5-5.1) 11/14/23 05:22
Chloride 108 mmol/L (98-107) H 11/14/23 05:22
Carbon Dioxide 24 mmol/L (22-30) 11/14/23 05:22
BUN 50 mg/dl (9-20) H 11/14/23 05:22
Creatinine 1.8 mg/dL (0.7-1.3) H 11/14/23 05:22
eGFR 39.25 11/14/23 05:22
Glucose 176 mg/dl (70-99) H 11/14/23 05:22
Calcium 9.0 mg/dl (8.4-10.2) 11/14/23 05:22
Cil-C-Ybouangyell Pept 4010 pg/ml 11/08/23 12:17
Albumin 3.2 g/dl (3.5-5.0) L 11/13/23 02:47
Physical Exam
-
Vital Signs:
Vital Signs
Temp Pulse Resp BP Pulse Ox
97.9 F 63 19 145/66 94
11/14/23 11:26 11/14/23 12:00 11/14/23 12:00 11/14/23 12:00 11/14/23 12:00
Cardiovascular:: Regular rate and rhythm
Respiratory:: Bilateral: Coarse
Lung Excursion:: Abnormal
Abdomen:: Distended, Nontender and Soft
Extremity Edema:: None: Bilateral:
Rocha Catheter: No
--- NOTE | 2023-11-14 12:53 | PTOTSP ---
Video Swallow Study
Summary: Patient presents with mild oral and WFL pharyngeal stages of swallowing. Etiology is likely combination of his neurological history (prior CVA, SDH) in combination with lack of dentures at time of this test. No aspiration occurred.
Please see patient care note for full details of penetration and swallowing physiology.
After all trials completed and when patient was transferred from [place] chair to his stretcher in a supine position, coughing noted. Consider further testing of esophagus to r/o bottom up aspiration.
Recommend:
1. Regular, Thin Liquids
2. Strategies: upright to 90 degrees, dentures in place to chew solids, avoid eating when coughing or SOB, remain upright 30 minutes after PO intake as a reflux precaution
3. Medications as best tolerated
4. Consider GI consult and/or further testing of esophageal stage of swallowing
5. No further dysphagia therapy with an DESULFURIZER OPERATOR warranted at this time. Please reconsult as appropriate.
[2023-11-14] MEDS: DUONEB 3 ML INH (13:12)
--- NOTE | 2023-11-14 14:14 | W.PN.PUL3 ---
Today's Communication / Plan
-
Suspect chronic intermittent aspiration
Continue with airway clearance measures
Nebulized therapy [id number]
Chest percussion, Acapella
Hold on antibiotics for now
Assessment
-
72-year-old male with complex medical history including spontaneous subdural hematoma while on anticoagulation, stroke, chronic amiodarone therapy, history of non-Hodgkin's lymphoma 2017 followed by chemotherapy/splenectomy now presents with
increased abdominal bloating, upper extremity swelling. Underwent paracentesis at outside hospital, transferred to [facility] 11/07 for possible lead extraction due to venous stricture. CT imaging identified bilateral patchy infiltrate
which we are asked to comment on in the setting of amiodarone therapy
Bilateral basilar bronchiolitis, nodular infiltrate
Chronicity unclear
Acute bronchitis x 1 week
Newly diagnosed cirrhosis
Moderate per imaging
Varices noted per imaging
Required paracentesis x 2
Acute respiratory insufficiency, left upper extremity edema
Admitted to [facility] 10/28/23
Transfer to [facility] 11/08/23
Questionable slurred speech during hospital stay
Eliquis restarted per neuro recommendations
Conditions present prior to admission
History of non-Hodgkin's lymphoma 2016
Status postchemotherapy/splenectomy
Atrial flutter, chronic amiodarone therapy
Discontinued 11/11/2023
History of spontaneous SDH on Eliquis 2016
History of stroke 2018
Hypothyroidism
Diabetes
Chronic kidney disease
BPH
Plan/recommendations
At this time, patient appears to be nontoxic-appearing, comfortable
Slight wheezing, remains on room air
CT chest with mild bibasilar bronchial airway thickening, bronchiolitis
Brief episode of slurring of speech during hospital stay noted, unclear whether patient may have had a mild aspiration event. However, bronchitic symptoms started while at outside hospital per son
swallow evaluation with transient penetration with thin barium
Moving forward
Continue with management as you are. Nebulized therapy as needed
Will hold Symbicort
Patient is also on steroid therapy during hospital stay because of wheezing. Presently on 30 mg. Continue to wean
Continue budesonide to nebulized regimen twice a day
Suspect patient is having intermittent aspiration
Chest x-ray today with mild left midlung infiltrate
Hold on empiric antibiotics for now. Follow clinically. Patient had risk for nosocomial infection
Continue Acapella device, chest percussion therapy
Out of bed to chair, ambulate, PT/OT
Note that patient has already been taken off amiodarone therapy as of 11/10, therefore possibility of amiodarone toxicity in the lung less pertinent at this time,
Reviewed with nursing
Subjective Data
-
Date of Service:
Date of Service: November 14, 2023
Subjective:
Patient continues to have to significant wheezing and coughing although remains nontoxic-appearing on room air. Presently sleeping
Objective Data
Data Reviewed
Vital Signs / I&O / Oxygen:
Vital Signs
Temp Pulse Resp BP Pulse Ox
97.9 F 63 21 145/66 97
11/14/23 11:26 11/14/23 13:13 11/14/23 13:13 11/14/23 12:00 11/14/23 13:13
Intake and Output
11/13/23 11/14/23 11/15/23
06:59 06:59 06:59
Intake Total 120 / 120 100 / 100
Output Total 500 / 500 490 / 490 300 / 300
Balance -380 / -380 -390 / -390 -300 / -300
SaO2 97
Nasal Cannula flow liters per 96
minute
Physical Exam
General: Comfortable
HEENT: Normocephalic
Cardiovascular: S1-S2, Regular Rhythm and Murmur (n)
Respiratory: Wheeze (Diffuse end expiratory), Crackles (n), Rhonchi (n) and Non-Labored Respirations
GI: Soft, Non Distended and Non Tender
Neurology: Lethargic (Sleeping comfortably)
Skin: Warm and Rash (n)
Labs/Micro/Reports
Lab Data
11/14/23 05:22
11/14/23 05:22
Microbiology
11/12/23 10:58 Peritoneal Fluid Body Fluid Culture - Preliminary
No Growth After 48 Hours
11/12/23 10:58 Peritoneal Fluid Gram Stain - Preliminary
11/08/23 12:21 Blood/Venous Blood Culture - Final
No Growth - Final Report
[2023-11-14 17:12] LABS: Glucose - Point of Care 279 mg/dl (70-99)
[2023-11-14] MEDS: NOVOLOG FLEXPEN-HIGH RESISTANCE 7 UNITS SC (18:26)
[2023-11-14] MEDS: SODIUM CHLORIDE 3% FOR INHALATION 1 VIAL INH (19:42)
[2023-11-14 21:58] LABS: Glucose - Point of Care 237 mg/dl (70-99)
[2023-11-14] MEDS: FLOMAX 0.400000000000000022 MG PO (22:03)
[2023-11-15] VITALS (11 sets, daily range): BP systolic 114–145; BP diastolic 61–94; PULSE 60–72; O2SAT 98; BMI 23.0
[2023-11-15] MEDS: ROBITUSSIN 200 MG PO ×4 (03:06→21:07)
[2023-11-15] MEDS: SYNTHROID 75 MCG PO (05:20)
--- NOTE | 2023-11-15 05:44 | PTCARENOTE ---
Pt coughed on and off most of the night. Medicated with Robitussin twice with a small reduction in cough. When he coughs forcefully and often he has audible expiratory wheezes. He has been cooperative without complaints. Voids clear yellow
urine.L arm remains swollen especially around upper forearm and elbow. Monitor has shown consistent atrial paced rhythm with no loss of capture noted. Atrial paced with intrinsic QRS conducted with HR 60-66 bpm.
[2023-11-15 05:54] LABS: % Basophils 0.1 % (0-2); % Eosinophils 0.1 % (0-6); % Immature Granulocytes 0.6 % (0-0.5); % Lymphocytes 7.9 % (20.5-51.1); % Monocytes 9.8 % (1.7-9.3); % Neutrophils 81.5 % (42.2-75.2); Absolute Immature Granulocytes 0.1 10^3/uL (0-0.05); Absolute Monocytes 1.2 10^3/uL (0.1-0.6); Hemoglobin 8.8 g/dL (13.0-18.0); Mean Corp Hgb Conc. 35.2 g/dL (33.0-37.0); Mean Corpuscular Hgb 31.5 pg (27.0-31.0); Mean Corpuscular Volume 89.6 fL (80.0-94.0); Mean Platelet Volume 10.7 fL (7.4-10.4); Nucleated Red Blood Cells % 0.6 % (-); Platelet Count 208 10^3/uL (130-400); Red Blood Cell Count 2.79 10^6/uL (4.70-6.10); Red Cell Dist. Width 21.1 % (11.5-14.5); White Blood Cell Count 12.3 10^3/uL (4.8-10.8)
[2023-11-15 06:20] LABS: Blood Urea Nitrogen 45 mg/dl (9-20); Calcium 9.5 mg/dl (8.4-10.2); Carbon Dioxide 26 mmol/L (22-30); Chloride 107 mmol/L (98-107); Estimated Creatinine Clearance 34 ml/min; Glucose 150 mg/dl (70-99); Potassium 4.5 mmol/L (3.5-5.1); Sodium 139 mmol/L (135-145); eGFR 42.04
--- NOTE | 2023-11-15 07:02 | W.PN.HOSP.TC ---
Today's Communication/Plan
-
Need to increase activity/remains with intractable cough and fatigue with any attempts at ambulation
PT recommendations are for family support and home PT
Continue steroid taper
Budesonide inhalation
Secretions mobilization
Repeat LFTs
Assessment / Plan
Assessment / Plan
Patient is a 72-year-old male
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
subclavian and brachiocephalic veins around the cardiac pacemaker wires--cont eliquis, no plans for pacer removal per cards
Slurred speech/lethargy--2 to 3 days in duration and abnormal as per family and patient--no workup at [facility]--apprec neurology--PT/OT/speech--patient does have history of both subdural hematoma and nonhemorrhagic CVA--head CT shows old
finding, nothing acute--neurology started on Eliquis and stopped asa
History of non-Hodgkin's lymphoma with Waldenstr�m's macroglobulinemia status postsplenectomy for thrombocytopenia--completed course of chemotherapy--workup at [facility] shows no progression of lymphoma
Type 2 diabetes mellitus insulin requiring--Place sliding scale insulin, check hemoglobin R4k--zkgoosyt insulin as able--watch with starting steroids, change to PO prednisone
Cirrhosis--presumed due to right sided heart failure--status post 1.7 L paracentesis at [facility]--further drainage here by IR 700 cc removed November 11--ultrasound showed moderate ascites--consulted IR and ordered fluid studies--will stop
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
outpt/amiodarone has been discontinued/continue to monitor LFTs that have been trending down
History of iron deficiency anemia with GI bleeding--had been receiving IV iron at [facility]--HGB 8.5--no active bleeding noted
Questionable history of chronic obstructive pulmonary disease/asthma--family states he has been in his 'inhaler' since his pneumonia in 2019--but they deny any history of lung problems--wheezing--possible COPD exacerbation--started low dose
decadron, change to PO prednisone with taper--follow--CXR from 11/13 some improvement/PULMONARY consultation /there is a question of recurrent aspiration pneumonitis however video swallow evaluation did not show active aspiration/no recommendation
for modification of diet continues to have harsh cough
hypothyroid--TSH 12 but free T4 elevated (not reliable in hospital setting)--synthroid increased to 75mcg from 50 mcg; will need repeat TFTs in 3-4 weeks (~ end of November)
Essential hypertension--continue medications with parameters
History of diastolic congestive heart failure with mild exacerbation--as per cards
History of gout--noted--cont allopurinol
History of BPH--continue tamsulosin
Hyperlipidemia--continue atorvastatin
Paroxysmal atrial flutter--status post Watchman procedure
Previous history of subdural hematoma and non hemorrhagic CVA--continue PT/OT/speech-- baby aspirin stopped by neuro--now on Eliquis
DVT prophylaxis--sequential teds
CODE STATUS--full code--
Anticipated Discharge: Within 24 hours
Subjective/Interval History
-
Date of Service: November 15, 2023
Continues with harsh cough and wheezing some help overnight with Robitussin
Objective Data
-
Labs:
Laboratory Results
11/15/23
05:21
WBC 12.3 H
Hgb 8.8 L
Hct 25.0 L
Plt Count 208
Sodium 139
Potassium 4.5
Chloride 107
Carbon Dioxide 26
BUN 45 H
Creatinine 1.7 H
Glucose 150 H
Calcium 9.5
Vital Signs:
Vital Signs
Temp Pulse Resp BP Pulse Ox
97.8 F 60 21 138/74 96
11/15/23 03:49 11/15/23 05:00 11/15/23 05:00 11/15/23 04:00 11/15/23 03:00
I&O
11/14/23 11/15/23 11/16/23
06:59 06:59 06:59
Intake Total 100 / 100 200 / 200
Output Total 490 / 490 950 / 950
Balance -390 / -390 -750 / -750
Review of Systems
-
History Source: Patient and Family
Respiratory: Reports Cough and Wheezing
Cardiac: Reports No Symptoms
Abdomen/GI: Reports No Symptoms
Physical Exam
-
General: No Apparent Distress
HEENT: Normocephalic
Respiratory: Wheezes and Rhonchi
Cardiac: Regular Rhythm (paced)
GI: Soft
Neuro: Awake, Alert, Oriented and Other (Language barrier)
Psych: Calm
Data Reviewed
-
Total Time Spent with Patient (in minutes): 56
Diagnostic Radiology: Report Reviewed by me (Repeat chest x-ray showed mild left basilar opacification atelectasis versus pneumonic infiltrate)
Labs: Labs Reviewed by me (Creatinine continues to trend down to 1.7/hemoglobin trending to 8.8 up)
[2023-11-15 07:26] LABS: Glucose - Point of Care 157 mg/dl (70-99)
[2023-11-15] MEDS: SODIUM CHLORIDE 3% FOR INHALATION 1 VIAL INH ×2 (07:34→19:20)
[2023-11-15] MEDS: PULMICORT 0.5 MG INH ×2 (07:34→19:20)
--- NOTE | 2023-11-15 08:32 | W.PN.NEPH.PH ---
Today's Communication / Plan
-
Follow BMP
Assessment/Plan
-
Impression:
Acute kidney injury
CKD stage IIIb-follows [facility]
Cirrhosis, new diagnosis per family
s/p paracentesis for 1.7 L on 11/02/23 at [facility]
Leukocytosis with bandemia - Concern at [facility] for infected PPM
Concern for venous stricture/stenosis
Elevated LFTs
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
Waldenstr�m's macroglobulinemia with thrombocytopenia
History of splenectomy in 2018
Sick sinus syndrome status post [place] [employer] [place] pacemaker
Paroxysmal atrial flutter
History of spontaneous subdural hematoma on Eliquis in 2017
History of stroke in 2019
Status post watchman 06/2019
Chronic diastolic congestive heart failure
HTN
HLD
Type 2 diabetes
CKD
Gout
BPH
Hypothyroidism
Plan
cr seem slowly improving to 1.7, nonoliguric, weights down
underlying CKD and followed by [facility]
continues with lasix, FR 48 ounces/day
on Prednisone per primary/pulm, off Amio
Status post swallowing evaluation
follow BMP
-
-
Date of Service: November 15, 2023
CC / HPI / ROS
-
Chief Complaint:
CKD
History of Present Illness:
Creatinine better at 1.7
Hemodynamically stable
on no supplemental O2
Review of Systems:
nonoliguric
No fevers
No chest pain
sob slow to improve on room air
Weights down
Labs
-
Labs:
WBC 12.3 10^3/uL (4.8-10.8) H 11/15/23 05:21
RBC 2.79 10^6/uL (4.70-6.10) L 11/15/23 05:21
Hgb 8.8 g/dL (13.0-18.0) L 11/15/23 05:21
Hct 25.0 % (39.0-52.0) L 11/15/23 05:21
Plt Count 208 10^3/uL (130-400) 11/15/23 05:21
Sodium 139 mmol/L (135-145) 11/15/23 05:21
Potassium 4.5 mmol/L (3.5-5.1) 11/15/23 05:21
Chloride 107 mmol/L (98-107) 11/15/23 05:21
Carbon Dioxide 26 mmol/L (22-30) 11/15/23 05:21
BUN 45 mg/dl (9-20) H 11/15/23 05:21
Creatinine 1.7 mg/dL (0.7-1.3) H 11/15/23 05:21
eGFR 42.04 11/15/23 05:21
Glucose 150 mg/dl (70-99) H 11/15/23 05:21
Calcium 9.5 mg/dl (8.4-10.2) 11/15/23 05:21
Gsc-M-Lmdqmxpqswy Pept 4010 pg/ml 11/08/23 12:17
Albumin 3.2 g/dl (3.5-5.0) L 11/13/23 02:47
Physical Exam
-
Vital Signs:
Vital Signs
Temp Pulse Resp BP Pulse Ox
97.3 F 66 17 138/74 94
11/15/23 07:37 11/15/23 07:36 11/15/23 07:36 11/15/23 04:00 11/15/23 07:36
Cardiovascular:: Regular rate and rhythm
Respiratory:: Bilateral: Coarse
Lung Excursion:: Normal
Abdomen:: Nontender
Bowel Sounds:: Normal
Extremity Edema:: None: Bilateral:
Rocha Catheter: No
[2023-11-15] MEDS: NOVOLOG FLEXPEN-HIGH RESISTANCE 2 UNITS SC ×2 (08:40→18:23)
[2023-11-15] MEDS: ELIQUIS 2.5 MG PO ×2 (08:41→20:59)
[2023-11-15] MEDS: PROSCAR 5 MG PO (08:41)
[2023-11-15] MEDS: LASIX 20 MG PO (08:41)
[2023-11-15] MEDS: DUPHALAC/CHRONULAC 20 GRAMS PO ×2 (08:41→20:59)
[2023-11-15] MEDS: DELTASONE 30 MG PO (08:41)
[2023-11-15] MEDS: VITAMIN D3 (cholecalciferol) 50 MCG PO (08:41)
[2023-11-15] MEDS: ZYLOPRIM 300 MG PO (08:42)
[2023-11-15] MEDS: LOPRESSOR 12.5 MG PO ×2 (08:42→20:59)
[2023-11-15 12:21] LABS: Glucose - Point of Care 258 mg/dl (70-99)
[2023-11-15] MEDS: NOVOLOG FLEXPEN-HIGH RESISTANCE 7 UNITS SC (13:24)
--- NOTE | 2023-11-15 15:34 | CM ---
Patient with Dx Left upper arm swelling with concern for stricture/SVC syndrome from pacemaker leads. Room air.
PT & OT recommend HH; Will need RW for home.
Spoke with [facility]; the patient has been accepted by [facility].
Phone call to son Jassi; left message requesting callback for d/c planning.
Plan request script for RW, and PT will dispense.
Plan home with [facility], with RW, with family.
--- NOTE | 2023-11-15 16:15 | W.PN.PUL3 ---
Today's Communication / Plan
-
Wean off prednisone. Do not feel he needs this
Aspiration precautions!!!
Recommended eating and drinking with dentures in place
Continue budesonide indefinitely
Increase activity
Will repeat chest x-ray 11/15
Assessment
-
72-year-old male with complex medical history including spontaneous subdural hematoma while on anticoagulation, stroke, chronic amiodarone therapy, history of non-Hodgkin's lymphoma 2017 followed by chemotherapy/splenectomy now presents with
increased abdominal bloating, upper extremity swelling. Underwent paracentesis at outside hospital, transferred to [facility] 11/07 for possible lead extraction due to venous stricture. CT imaging identified bilateral patchy infiltrate
which we are asked to comment on in the setting of amiodarone therapy
Bilateral basilar bronchiolitis, nodular infiltrate
Chronicity unclear
Acute bronchitis x 1 week
Newly diagnosed cirrhosis
Moderate per imaging
Varices noted per imaging
Required paracentesis x 2
Acute respiratory insufficiency, left upper extremity edema
Admitted to [facility] 10/28/23
Transfer to [facility] 11/08/23
Questionable slurred speech during hospital stay
Eliquis restarted per neuro recommendations
Conditions present prior to admission
History of non-Hodgkin's lymphoma 2016
Status postchemotherapy/splenectomy
Atrial flutter, chronic amiodarone therapy
Discontinued 11/11/2023
History of spontaneous SDH on Eliquis 2017
History of stroke 2019
Hypothyroidism
Diabetes
Chronic kidney disease
BPH
Plan/recommendations
At this time, patient appears to be nontoxic-appearing, comfortable
Slight wheezing, remains on room air
CT chest with mild bibasilar bronchial airway thickening, bronchiolitis
Brief episode of slurring of speech during hospital stay noted, unclear whether patient may have had a mild aspiration event. However, bronchitic symptoms started while at outside hospital per son
swallow evaluation with transient penetration with thin barium
Moving forward
Continue with management as you are. Nebulized therapy as needed
Will hold Symbicort
Patient is also on steroid therapy during hospital stay because of wheezing. Presently on 30 mg. Continue to wean
Continue budesonide to nebulized regimen twice a day
Suspect patient is having intermittent aspiration
Would prefer to continue with nebulized budesonide given suspected lack of coordination with inhaler therapy
Chest x-ray today with mild left midlung infiltrate
Repeat chest x-ray 11/15, PA/lateral
Hold on empiric antibiotics for now. Follow clinically. Patient had risk for nosocomial infection
Continue Acapella device, chest percussion therapy
Out of bed to chair, ambulate, PT/OT
Note that patient has already been taken off amiodarone therapy as of 11/10, therefore possibility of amiodarone toxicity in the lung less pertinent at this time,
Reviewed with nursing
Reviewed with son by phone who acted as excel analyst
Subjective Data
-
Date of Service:
Date of Service: November 15, 2023
Subjective:
Patient states his cough is improved, but still has coughing spasms. Denies chest pain, nausea. Discussed with son by phone who acted as excel analyst
Objective Data
Data Reviewed
Vital Signs / I&O / Oxygen:
Vital Signs
Temp Pulse Resp BP Pulse Ox
97.4 F 60 18 124/68 95
11/15/23 11:26 11/15/23 13:00 11/15/23 13:00 11/15/23 11:52 11/15/23 11:00
Intake and Output
11/14/23 11/15/23 11/16/23
06:59 06:59 06:59
Intake Total 100 / 100 200 / 200 480 / 480
Output Total 490 / 490 950 / 950 300 / 300
Balance -390 / -390 -750 / -750 180 / 180
SaO2 95
Nasal Cannula flow liters per 96
minute
Physical Exam
General: Comfortable
HEENT: Normocephalic and Other (Edentulous)
Cardiovascular: S1-S2, Regular Rhythm and Murmur (n)
Respiratory: Wheeze (Mild), Crackles (n), Rhonchi (n) and Non-Labored Respirations
GI: Soft, Non Distended and Non Tender
Neurology: Awake and Alert (Watching a movie on his phone)
Skin: Warm, Cyanosis (n) and Rash (n)
Labs/Micro/Reports
Lab Data
11/15/23 05:21
11/15/23 05:21
Microbiology
11/12/23 10:58 Peritoneal Fluid Body Fluid Culture - Final
No Growth After 72 Hours
11/12/23 10:58 Peritoneal Fluid Gram Stain - Final
11/08/23 12:21 Blood/Venous Blood Culture - Final
No Growth - Final Report
[2023-11-15 16:33] LABS: Glucose - Point of Care 173 mg/dl (70-99)
--- NOTE | 2023-11-15 17:19 | PTCARENOTE ---
Addendum entered by Maye Peralta RN 11/15/23 17:22:
Left arm remains edematous, compression wrap / rebeka wrap placed this am. Encouraged to elevate-pillow in place but he moves it around alot.
Original Note:
Remains 100% A paced on tele- other VS are WNL. Continues with harsh dry DATA TECHNICAL LEAD cough/ wheeze- 95% on RAIR. PRN Robitussin given x 2 this shift with little relief. OOB all day, ambulates with staff. Downgraded to med/ surg
[2023-11-15] MEDS: FLOMAX 0.400000000000000022 MG PO (20:59)
--- NOTE | 2023-11-15 21:12 | TRANSFER ---
Report called to Grzegorz Hooper RN. Patient called son-in-law at bedside and I updated him on the transfer. Pt swallowed pills whole with warm water w/o issues. All belongings and chart sent with pt. Pt transferred via wheelchair and PCT.
[2023-11-15 21:46] LABS: Glucose - Point of Care 284 mg/dl (70-99)
[2023-11-16] MEDS: SYNTHROID 75 MCG PO (05:26)
[2023-11-16 06:00] VITALS: BMI 22.5
[2023-11-16 07:30] VITALS: BP 87/54
[2023-11-16 07:31] LABS: Glucose - Point of Care 186 mg/dl (70-99)
[2023-11-16 07:33] LABS: Hematocrit 25.4 % (39.0-52.0); Hemoglobin 9.1 g/dL (13.0-18.0); Mean Corp Hgb Conc. 35.8 g/dL (33.0-37.0); Mean Corpuscular Hgb 31.7 pg (27.0-31.0); Mean Corpuscular Volume 88.5 fL (80.0-94.0); Platelet Count 209 10^3/uL (130-400); Red Blood Cell Count 2.87 10^6/uL (4.70-6.10); White Blood Cell Count 13.1 10^3/uL (4.8-10.8)
[2023-11-16 07:47] LABS: ALT (SGPT) 113 U/L (0-50); AST (SGOT) 145 U/L (17-59); Alkaline Phosphatase 146 U/L (38-126); Blood Urea Nitrogen 39 mg/dl (9-20); Calcium 8.8 mg/dl (8.4-10.2); Carbon Dioxide 27 mmol/L (22-30); Chloride 105 mmol/L (98-107); Estimated Creatinine Clearance 38 ml/min; Glucose 167 mg/dl (70-99); Potassium 4.3 mmol/L (3.5-5.1); Sodium 135 mmol/L (135-145); Total Bilirubin 1.8 mg/dl (0.2-1.3); Total Protein 6.6 g/dl (6.3-8.2); eGFR 48.85
[2023-11-16] MEDS: PULMICORT 0.5 MG INH (08:09)
[2023-11-16] MEDS: SODIUM CHLORIDE 3% FOR INHALATION 1 VIAL INH (08:11)
[2023-11-16] MEDS: ROBITUSSIN 200 MG PO (08:42)
[2023-11-16] MEDS: PROSCAR 5 MG PO (08:42)
[2023-11-16] MEDS: LOPRESSOR 12.5 MG PO (08:42)
[2023-11-16] MEDS: ELIQUIS 2.5 MG PO (08:42)
[2023-11-16] MEDS: DUPHALAC/CHRONULAC 20 GRAMS PO (08:42)
[2023-11-16] MEDS: ZYLOPRIM 300 MG PO (08:42)
[2023-11-16] MEDS: DELTASONE 30 MG PO (08:43)
[2023-11-16] MEDS: VITAMIN D3 (cholecalciferol) 50 MCG PO (08:43)
[2023-11-16] MEDS: LASIX 20 MG PO (08:43)
[2023-11-16] MEDS: NOVOLOG FLEXPEN-HIGH RESISTANCE 2 UNITS SC (08:47)
--- NOTE | 2023-11-16 09:26 | W.PN.PUL3 ---
Today's Communication / Plan
-
Continue nebulized therapy moving forward
Discontinue Symbicort
Aspiration precautions
Encouraged being consistent with using dentures with eating and drinking
Consider speech and swallow therapy as outpatient
Disposition efforts
Assessment
-
72-year-old male with complex medical history including spontaneous subdural hematoma while on anticoagulation, stroke, chronic amiodarone therapy, history of non-Hodgkin's lymphoma 2017 followed by chemotherapy/splenectomy now presents with
increased abdominal bloating, upper extremity swelling. Underwent paracentesis at outside hospital, transferred to [facility] 11/07 for possible lead extraction due to venous stricture. CT imaging identified bilateral patchy infiltrate
which we are asked to comment on in the setting of amiodarone therapy
Bilateral basilar bronchiolitis, nodular infiltrate
Chronicity unclear
Acute bronchitis x 1 week
Newly diagnosed cirrhosis
Moderate per imaging
Varices noted per imaging
Required paracentesis x 2
Acute respiratory insufficiency, left upper extremity edema
Admitted to [facility] 10/28/23
Transfer to [facility] 11/08/23
Questionable slurred speech during hospital stay
Eliquis restarted per neuro recommendations
Conditions present prior to admission
History of non-Hodgkin's lymphoma 2016
Status postchemotherapy/splenectomy
Atrial flutter, chronic amiodarone therapy
Discontinued 11/11/2023
History of spontaneous SDH on Eliquis 2016
History of stroke 2018
Hypothyroidism
Diabetes
Chronic kidney disease
BPH
Plan/recommendations
At this time, patient appears to be nontoxic-appearing, comfortable
Slight wheezing, remains on room air
CT chest with mild bibasilar bronchial airway thickening, bronchiolitis
Repeat chest x-ray 11/15 with overall improved aeration, improved left midlung atelectasis, per my review
Brief episode of slurring of speech during hospital stay noted, unclear whether patient may have had a mild aspiration event. However, bronchitic symptoms started while at outside hospital per son
swallow evaluation with transient penetration with thin barium
Moving forward
Continue with management as you are. Nebulized therapy as needed
Will hold Symbicort
Patient is also on steroid therapy during hospital stay because of wheezing. Presently on 30 mg. Continue to wean
Continue budesonide to nebulized regimen twice a day
Suspect patient is having intermittent aspiration
Would prefer to continue with nebulized budesonide given suspected lack of coordination with inhaler therapy
Hold on empiric antibiotics for now. Follow clinically. Patient had risk for nosocomial infection
Continue Acapella device, chest percussion therapy
Out of bed to chair, ambulate, PT/OT
Note that patient has already been taken off amiodarone therapy as of 11/10, therefore possibility of amiodarone toxicity in the lung less pertinent at this time,
Reviewed with nursing
Reviewed with son by phone who acted as paver layer 11/14
Discussed importance of consistently using dentures with eating and drinking
Disposition efforts
Subjective Data
-
Date of Service:
Date of Service: November 16, 2023
Subjective:
Patient examined earlier in the morning. Continues to have mild cough. Remains without his dentures. No other complaints
Objective Data
Data Reviewed
Vital Signs / I&O / Oxygen:
Vital Signs
Temp Pulse Resp BP Pulse Ox
97.6 F 61 16 114/60 100
11/16/23 07:30 11/16/23 08:42 11/16/23 08:40 11/16/23 08:42 11/16/23 08:40
Intake and Output
11/15/23 11/16/23 11/17/23
06:59 06:59 06:59
Intake Total 200 / 200 1040 / 1040
Output Total 950 / 950 1150 / 1150
Balance -750 / -750 -110 / -110
SaO2 100
Nasal Cannula flow liters per 96
minute
Physical Exam
General: Comfortable
HEENT: Normocephalic and Other (Edentulous)
Cardiovascular: S1-S2, Regular Rhythm and Murmur (n)
Respiratory: Wheeze (Mild), Crackles (n), Rhonchi (n) and Non-Labored Respirations
GI: Soft, Non Distended and Non Tender
Neurology: Awake and Alert (Watching a movie on his phone)
Skin: Warm, Cyanosis (n) and Rash (n)
Labs/Micro/Reports
Lab Data
11/16/23 06:36
11/16/23 06:36
Microbiology
11/12/23 10:58 Peritoneal Fluid Body Fluid Culture - Final
No Growth After 72 Hours
11/12/23 10:58 Peritoneal Fluid Gram Stain - Final
11/08/23 12:21 Blood/Venous Blood Culture - Final
No Growth - Final Report
--- NOTE | 2023-11-16 10:33 | W.DS.TRANS ---
DC Summary - Manager Appointment
-
Discharge Instructions:
Sleep Apnea Risk Intermediate
Discharge Diagnosis/Procedures Left upper arm swelling due to chronic
thrombosis of the left subclavian and
brachiocephalic veins around cardiac pacemaker
wires, slurred speech/lethargy, history of non-
Hodgkin's lymphoma, type 2 diabetes mellitus,
severe cirrhosis, iron deficiency anemia with
history of GI bleeding, chronic obstructive
pulmonary disease/asthma, hypothyroidism,
essential hypertension, diastolic congestive
heart failure with mild exacerbation, gout,
benign prostatic hyperplasia, hyperlipidemia,
paroxysmal atrial flutter, previous history of
subdural hematoma and nonhemorrhagic stroke/
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
Diet Diabetic, Carb Controlled,Other diet
Additional Diets 2 g sodium and 2 g potassium/aspiration
precautions already sit upright when eating and
always use dentures
Activity As tolerated
Driving Restrictions Not until seen by your Dr
Bathing Restrictions None
Blood Work Thyroid function studies in 3 to 4 weeks (end of
November)
Other Services VN
Specialty Instructions Weigh Daily
Instructions: *[facility] Heart Failure Instructions
Stand-Alone Forms:
Changes to Home Medications: No
Discharge Medications:
DC Medications w/original date entered in [facility]
cholecalciferol (vitamin D3) 50 mcg (2,000 unit) tablet 2,000 unit PO DAILY Supplement 07/02/19
finasteride 5 mg tablet 5 mg PO DAILY Urinary Issue 07/02/19
metoprolol tartrate 25 mg tablet 12.5 mg PO BID Blood Pressure 07/02/19
tamsulosin 0.4 mg capsule 0.4 mg PO HS Urinary Issue 07/02/19
allopurinol 300 mg tablet 300 mg PO DAILY Gout 08/28/19
empagliflozin 25 mg tablet 25 mg PO DAILY Diabetes 11/08/23
furosemide 20 mg tablet 20 mg PO DAILY Fluid Retention/Swelling 11/08/23
apixaban 2.5 mg tablet (Eliquis) 2.5 mg PO BID #60 tabs 11/15/23
atorvastatin 20 mg tablet 20 mg PO HS #30 tabs 11/15/23
budesonide 0.5 mg/2 mL suspension for nebulization 0.5 mg (2 mL) inhalation R BID #60 mL 11/15/23
guaifenesin 100 mg/5 mL oral liquid (Siltussin SA) 200 mg (10 mL) PO Q4HPRN PRN cough #30 mL 11/15/23
lactulose 20 gram/30 mL oral solution 20 g (30 mL) PO BID #1,200 mL 11/15/23
levothyroxine 75 mcg tablet 75 mcg PO DAILY@0600 #30 tabs 11/15/23
prednisone 10 mg tablet 20 mg (2 x 10 mg) PO DAILY #10 tabs 11/15/23
Home Medication Changes
apixaban 2.5 mg tablet (Eliquis) 2.5 mg PO BID #60 tabs 11/15/23
atorvastatin 20 mg tablet 20 mg PO HS #30 tabs 11/15/23
budesonide 0.5 mg/2 mL suspension for nebulization 0.5 mg (2 mL) inhalation R BID #60 mL 11/15/23
guaifenesin 100 mg/5 mL oral liquid (Siltussin SA) 200 mg (10 mL) PO Q4HPRN PRN cough #30 mL 11/15/23
lactulose 20 gram/30 mL oral solution 20 g (30 mL) PO BID #1,200 mL 11/15/23
levothyroxine 75 mcg tablet 75 mcg PO DAILY@0600 #30 tabs 11/15/23
prednisone 10 mg tablet 20 mg (2 x 10 mg) PO DAILY #10 tabs 11/15/23
Pending Results: Yes
[2023-11-16 11:00] VITALS: BP 124/69
--- NOTE | 2023-11-16 11:05 | W.DCSUMMARY ---
Discharge Summary
Discharge Data
Date of Admission: 11/08/23
Date of Discharge: 11/16/23
Total time spent discharging patient (in min): 45
-
Pending Results: No
Hospital Course
72-year-old male who was found to have a complex medical history that includes a history of a subdural hematoma while on anticoagulation also prior history of stroke chronic amiodarone therapy history of non-Hodgkin's lymphoma followed by
chemotherapy and splenectomy and also presenting with abdominal bloating in addition to upper extremity swelling. During hospitalization at [facility] he had undergone a paracentesis which is apparently new for him but was expressly transferred
here from [facility] after concern over the patient's noted to have a swollen left arm and possibly in relation to indwelling pacer that has had for some time and possible thrombotic process that had to be worked up and evaluated he was
admitted and he was seen by the cardiology service along with other multispecialty service specialists including the pulmonary consultation service and also the nephrology service.
He was also seen by the neurology service in relation to presentation and acute kidney disease on chronic kidney disease. apparently at outside hospital there is a suspicion for thrombotic process involving lead of his pacemaker but because of
worsening renal function he did not undergo a CT venogram. There is also some concern from family of some change in slurring of his speech on presentation and 2 to 3 days of lethargy prompting evaluation by the neurology service here.
After initial evaluation by the cardiology service and further diagnostic evaluation of a possible thrombotic process in his left upper chest and arm it was felt that the patient's ongoing risk profile would not warrant lead extraction due to venous
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
be continued on Eliquis therapy this is also reinforced by the fact that neurology saw the patient with a head CT showing no acute findings or signs of bleeding and recommendation was to stop his aspirin therapy in favor of continue oral
anticoagulation with Eliquis.
Other medical issues incurred during hospitalization included underlying cirrhosis which was apparent on presentation and presumed in relation to right-sided heart failure he had already undergone paracentesis at [facility] 1.7 L and another 700
cc here removed on November 11 ultrasound showed moderate ascites. He was placed on lactulose will be continued as he did have elevated ammonia levels on presentation.
His mental status actually improved during hospitalization. CT imaging noted moderate hepatic cirrhosis with esophageal varices suggestive of either metal deposition disease or amiodarone toxicity and given his long-term usage of amiodarone that
was discontinued was recommended that he may need GI follow-up as an outpatient in relation to possible probable need for protracted and scheduled paracentesis in the future.
He continues to have a very congestive and intractable cough that was highly suspicious for recurrent aspiration syndrome and did undergo a video swallow study that showed some aspiration of thin liquids with thin barium. He was seen by the
pulmonary service who concurred with a high suspicion of aspiration pneumonitis and that they felt that his prior course of Symbicort probably may not be the best option given his lack of coordination with its usage and he was started on budesonide
nebulizer therapies here which should be continued at home.
\\Also subsequently found to be hypothyroid with a TSH of 12 and a free T4 that was also elevated but not considered reliable in the hospital setting and Synthroid dosing was increased from 50 mcg to 75 mcg and will need to repeat TFTs FTs in 3 to 4
weeks with his primary care provider and follow-up at the end of November.
Nephrology continues to follow the patient to monitor his renal status and the patient did respond to diuretic management with improvement in his creatinine at the time of his discharge down to 1.7
At this time he is still undergoing a low-dose steroid taper that should be paid by the end of this week he should continue on aspiration precautions at all times including always wearing his dentures which he tends not to do when he eats. He
should continue on budesonide nebulizer therapy indefinitely and increase his activity
Discharge Plan
-
Patient Disposition: Home with Home Care
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
severe cirrhosis, iron deficiency anemia with history of GI bleeding, chronic obstructive pulmonary disease/asthma, hypothyroidism, essential hypertension, diastolic congestive heart failure with mild exacerbation, gout, benign prostatic
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
Condition: Good
Diet: Diabetic, Carb Controlled and Other diet
Additional Diets: 2 g sodium and 2 g potassium/aspiration precautions already sit upright when eating and always use dentures
Activity: As tolerated
Driving Restrictions: Not until seen by your Dr
Bathing Restrictions: None
Blood Work: Thyroid function studies in 3 to 4 weeks (end of November)
Other Services: VN, PT and OT
Specialty Instructions: Weigh Daily- Call MD for wt gain/loss 3 lbs overnight/5 lbs in 1 week
Instructions: *[facility] Heart Failure Instructions
Referrals:
[facility] Visiting Nurse [Outside]
Dg Barone MD [Active] - 12/04/23 3:40 pm (You have a follow up visit with Dr. Barone. Please call with questions. )
Estefany Jaquez MD [Family Provider] - in less than 1 week
Prescriptions:
New
guaifenesin [Siltussin SA] 100 mg/5 mL Liquid
200 mg PO Q4HPRN PRN (Reason: cough) Qty: 30 0RF
budesonide 0.5 mg/2 mL Suspension For Nebulization
0.5 mg inhalation R BID Qty: 60 0RF
levothyroxine 75 mcg Tablet
75 mcg PO DAILY@0600 Qty: 30 0RF
Eliquis 2.5 mg Tablet
2.5 mg PO BID Qty: 60 0RF
lactulose 20 gram/30 mL Solution
20 g PO BID Qty: 1200 0RF
prednisone 10 mg Tablet
20 mg PO DAILY Qty: 10 0RF
Rx Instructions:
Take 2 tablets for 3 days, then 1 tablet for 3 days then stop
atorvastatin 20 mg Tablet
20 mg PO HS Qty: 30 0RF
Continued
tamsulosin 0.4 MG capsule
0.4 mg PO HS
finasteride 5 MG tablet
5 mg PO DAILY
metoprolol tartrate 25 MG tablet
12.5 mg PO BID
cholecalciferol (vitamin D3) 2,000 UNIT tablet
2,000 unit PO DAILY
allopurinol 300 MG tablet
300 mg PO DAILY
furosemide 20 mg Tablet
20 mg PO DAILY
empagliflozin 25 mg Tablet
25 mg PO DAILY
Discontinued
atorvastatin 10 MG tablet
20 mg PO HS
aspirin 81 MG tablet,chewable
81 mg PO DAILY 0RF
Rx Instructions:
Daily in the morning
amiodarone [Pacerone] 200 MG tablet
200 mg PO DAILY
levothyroxine 50 mcg Tablet
50 mcg PO DAILY
budesonide-formoterol 80-4.5 mcg/actuation Hfa Aerosol Inhaler
2 puff INHALATION BID
Discharge Orders:
Discharge Patient (As Directed); Ordered 11/16/23
Ordered By: Paulo Miller
Care Plan Goals
Care Plan Goals:
Problem: Readiness for enhanced knowledge related to diagnosis and treatment plan
Goal: Understand your diagnosis and treatment plan needs, including medications if applicable.
Instructions: Know your diagnosis, underlying causes and treatment plan options, including medications if applicable. Consult with your health care team to learn about your diagnosis and treatment plan, including medications if applicable.
Discharge Date and Time
Print Language: KOREAN
--- NOTE | 2023-11-16 11:21 | W.PN.NEPH.PH ---
Today's Communication / Plan
-
sign off
Assessment/Plan
-
Impression:
Acute kidney injury
CKD stage IIIb-[facility]
Cirrhosis, new diagnosis per family
s/p paracentesis for 1.7 L on 11/02/23 at [facility]
Leukocytosis with bandemia - Concern at [facility] for infected PPM
Concern for venous stricture/stenosis
Elevated LFTs
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
[place]'s macroglobulinemia with thrombocytopenia
History of splenectomy in 2018
Sick sinus syndrome status post 5gig pacemaker
Paroxysmal atrial flutter
History of spontaneous subdural hematoma on Eliquis in 2017
History of stroke in 2019
Status post watchman 06/2019
Chronic diastolic congestive heart failure
HTN
HLD
Type 2 diabetes
CKD
Gout
BPH
Hypothyroidism
Plan
cr seem slowly improving to 1.5 nonoliguric, weights down
underlying CKD and followed by [facility]
continues with lasix, FR 48 ounces/day
on Prednisone per primary/pulm, off Amio
We will sign off
-
-
Date of Service: November 16, 2023
CC / HPI / ROS
-
Chief Complaint:
CKD
History of Present Illness:
Creatinine better at 1.3
Hemodynamically stable
on no supplemental O2
Review of Systems:
nonoliguric
No fevers
No chest pain
sob slow to improve on room air
Weights down
Labs
-
Labs:
WBC 13.1 10^3/uL (4.8-10.8) H 11/16/23 06:36
RBC 2.87 10^6/uL (4.70-6.10) L 11/16/23 06:36
Hgb 9.1 g/dL (13.0-18.0) L 11/16/23 06:36
Hct 25.4 % (39.0-52.0) L 11/16/23 06:36
Plt Count 209 10^3/uL (130-400) 11/16/23 06:36
Sodium 135 mmol/L (135-145) 11/16/23 06:36
Potassium 4.3 mmol/L (3.5-5.1) 11/16/23 06:36
Chloride 105 mmol/L (98-107) 11/16/23 06:36
Carbon Dioxide 27 mmol/L (22-30) 11/16/23 06:36
BUN 39 mg/dl (9-20) H 11/16/23 06:36
Creatinine 1.5 mg/dL (0.7-1.3) H 11/16/23 06:36
eGFR 48.85 11/16/23 06:36
Glucose 167 mg/dl (70-99) H 11/16/23 06:36
Calcium 8.8 mg/dl (8.4-10.2) 11/16/23 06:36
Spf-O-Uewtrjyxidx Pept 4010 pg/ml 11/08/23 12:17
Albumin 3.0 g/dl (3.5-5.0) L 11/16/23 06:36
Physical Exam
-
Vital Signs:
Vital Signs
Temp Pulse Resp BP Pulse Ox
97.6 F 61 16 114/60 100
11/16/23 07:30 11/16/23 08:42 11/16/23 08:40 11/16/23 08:42 11/16/23 08:40
Cardiovascular:: Regular rate and rhythm
Respiratory:: Bilateral: Coarse
Lung Excursion:: Normal
Abdomen:: Nontender and Soft
Bowel Sounds:: Normal
Extremity Edema:: None: Bilateral:
Rocha Catheter: No
--- NOTE | 2023-11-16 11:45 | CM ---
Patient is for discharge to home today, per patient, family to transport, patient was provided with a walker at discharge, script obtained from physician, patient also given a script for a Nebulizer. Per patient he has a Nebulizer in home.
Plan; Home with [facility] visiting nurses.
[place]
[phone]
[2023-11-16] MEDS: NOVOLOG FLEXPEN-HIGH RESISTANCE SC (13:21)
--- NOTE | 2023-11-16 13:37 | PTCARENOTE ---
Discharge instructions reviewed with patient and granddaughter. Patient left with written prescriptions and walker.
--- NOTE | 2023-11-27 08:38 | OID.L.PAT ---
Pulmonary Nodule Pat Letter
- -
11/27/23
DARRELL LEE
[address] [place] [address]
[place] [id number]
Dear DARRELL,
A pulmonary nodule was seen on an imaging study done by [facility]. This was reviewed by the [facility] Pulmonary Nodule Advisory Board and the following recommendation was made:
Recommendation: Follow up CT Chest in 3 - 6 months
If you have any questions, please do not hesitate to contact your primary care physician. If you are in need of a Physician, you can go to [email or web address] and click on 'Find a Provider'. Type 'Family Medicine' in the search.
Oncology Nurse Navigator
[facility]
[phone]
--- NOTE | 2023-11-27 08:39 | OID.L.REC ---
Pulmonary Nodule Follow Up
- Recommendation
11/27/23
Pulmonary Nodule Review Recommendations
Your patient, DARRELL LEE, had a pulmonary nodule seen on an imaging study done on 11/10/23 in the [facility] Emergency Room.
This was reviewed by the [facility] Pulmonary Nodule Advisory Board and the following recommendation was made:
Recommendation: Follow up CT Chest in 3 - 6 months
If you have any questions please do not hesitate to contact us.
Sincerely,
Oncology Nurse Navigator
[facility]
[phone]
== END 2023-11-16 13:38 | disposition home health service (06) | DRG 314 ==
LOC: 4 WEST ACU 09:25
PROVIDERS: Nurse Practitioner Family; Physician Assistant; Radiology Vascular & Interventional Radiology; ADMITTING PHYSICIAN Internal Medicine; ATTENDING PHYSICIAN Internal Medicine; CONSULT PHYSICIAN Internal Medicine Cardiovascular Disease; CONSULT PHYSICIAN Internal Medicine Critical Care Medicine; CONSULT PHYSICIAN Specialist; CONSULT PHYSICIAN Student in an Organized Health Care Education/Training Program; FAMILY PHYSICIAN Specialist
PROC: 4B02XSZ Measurement of Cardiac Pacemaker, External Approach (ICD-10-PCS; 2023-11-08)
PROC: 0W9G3ZZ Drainage of Peritoneal Cavity, Percutaneous Approach (ICD-10-PCS; 2023-11-12)
DX: T82.897A Other specified complication of cardiac prosthetic devices, implants and grafts, initial encounter (principal); I50.33 Acute on chronic diastolic (congestive) heart failure; N17.9 Acute kidney failure, unspecified; N18.4 Chronic kidney disease, stage 4 (severe); I13.0 Hypertensive heart and chronic kidney disease with heart failure and stage 1 through stage 4 chronic kidney disease, or unspecified chronic kidney disease; R18.8 Other ascites; I87.1 Compression of vein; M79.89 Other specified soft tissue disorders; Z87.891 Personal history of nicotine dependence; Z79.82 Long term (current) use of aspirin; Z79.01 Long term (current) use of anticoagulants
CPT/HCPCS: 88305; 49083; 70450; 71046; 71260; 74230; 76705; 80048; 80053; 81003; 81015; 82042; 82140; 82570; 82728; 82962; 83036; 83540; 83550; 83735; 83880; 84300; 84439; 84443; 85025; 85027; 86803; 87015; 87040; 87070; 87205; 88112; 88341; 88342; 89051; 92610; 92611; 93880; 93971; 94640; 94667; 94668; 97116; 97163; 97167; 97530; 97535; Q9967